=== PATIENT | female | born 1950 | race Caucasian/White ===

== ENCOUNTER 2023-06-08 16:32 | Emergency (ER) | payer MEDICARE, OTHER ==
[2023-06-08 16:56] VITALS: TEMP 99.4
[2023-06-08] MEDS: MORPHINE SULFATE 4 MG INJ IV ONE (17:21)
[2023-06-08] MEDS ORDERED: SUBLIMAZE 100 MCG/2 ML ONE (17:23)
[2023-06-08 17:24] LABS: Absolute Neutrophil Ct (ANC) 9.05 x10^3/uL (1.4-6.9); BASOPHIL % 0.6 % (0.0-0.4); Basophil (Absolute #) 0.07 x10^3/uL (0-0.4); Eosinophil % 0.3 % (0.00-5.0); Eosinophil (Absolute #) 0.03 x10^3/uL (0-0.5); Hematocrit 46.7 % (35-47); IMMATURE GRAN # 0.03 x10^3u/L (0.00-0.03); IMMATURE GRAN % 0.3 % (0.00-0.4); Lymphocyte (Absolute #) 1.35 x10^3/uL (1.0-4.6); Lymphocytes % 12.1 % (24.0-44.0); Mean Cell Volume 91.9 fL (78-100); Mean Corpuscular Hemoglobin 29.5 pg (26-32); Mean Corpuscular Hgb Concent. 32.1 g/dL (32-36); Monocyte (Absolute #) 0.67 x10^3/uL (0.0-1.3); Neutrophil % 80.7 % (36.0-66.0); Platelet Count 318 x10^3/uL (150-450); Red Blood Count 5.08 x10^6/uL (4.1-5.4); Red Cell Distribution Width 12.1 % (11.5-14.0); White Blood Count 11.2 x10^3/uL (4.0-10.5)
[2023-06-08] MEDS: SUBLIMAZE 100 MCG/2 ML IV ONE (17:24)
[2023-06-08 17:31] LABS: ALBUMIN 4.5 g/dL (3.5-5.0); ANION GAP 16.7 MEQ/L (5-15); BILIRUBIN,TOTAL 0.8 mg/dL (0.2-1.3); Calcium 9.9 mg/dL (8.4-10.2); Creatinine 1 0.91 mg/dL (0.52-1.04); EST GLOMERULAR FILTRATION RATE 66.6 ML/MIN; Potassium 4.1 mmol/L (3.5-5.1); Total Protein 7.4 g/dL (6.3-8.2)
[2023-06-08] MEDS ORDERED: Zofran 4 MG/2 ML VIAL ONE (17:56)
[2023-06-08] MEDS: Zofran 4 MG/2 ML VIAL IV ONE (17:57)
--- NOTE | 2023-06-08 18:39 | ERPHSYRPT ---
- History of Present Illness Source: patient Exam Limitations: no limitations Patient Subjective Stated Complaint: Pt has weakness and pain in her left knee and left hip, pt's legs gave out on her today and she fell and hit the back lower part of her head and has a skin tear to her left arm Triage Nursing Assessment: Pt brought to the ER by her daughter, hypertensive, rates pain when standing as 10/10 but laying in the bed it is 0/10, pulses normal, RA in her hands, weakness and pain in her left knee and hip, pt unable to stand and place any weight to the left side, pt fell and hit head today but denies any issues, denies LOC, denies N&V, no difficulty breathing, doesn't appear to be in any distress Hx Tetanus, Diphtheria Vaccination/Date Given: No (4 years ago) Hx Influenza Vaccination/Date Given: No Hx Pneumococcal Vaccination/Date Given: No <STEPHANIA DYE - Last Filed: 06/08/23 19:02> <THAI ZAMORA - Last Filed: 06/08/23 21:01> - History of Present Illness Time Seen by Provider: 06/08/23 16:40 Physician History: Patient is here with fall today. Complains of left leg pain, weakness. She states that it "gave out from underneath her". She hit her head as well. Patient having some hypertension. No chest pain,Shortness of breath, fever, chills. Patient still complains of left hip and knee pain. Not really having any head pain. But did hit the back of her head. She is not on any blood thinners. (STEPHANIA DYE) Allergies/Adverse Reactions: influenza virus vaccine qs [id number] (36 mos, up) [From Fluarix Quad] Allergy (Verified 06/08/23 16:57) Penicillins Allergy (Verified 06/08/23 16:57) Home Medications: No Reportable Medications [No Reported Medications] 06/08/23 [History] Travel Risk - International Travel Have you traveled outside of the country in past 3 weeks: No - Coronavirus Screening Are you exhibiting any of the following symptoms?: No Close contact with a COVID-19 positive Pt in past 14-21 Days: No - Vaccine Status Have you recieved a Covid-19 vaccination: No <STEPHANIA DYE - Last Filed: 06/08/23 19:02> - Past Medical History Pertinent Past Medical History: Yes Musculoskeletal History: Rheumatoid Arthritis - Past Surgical History Past Surgical History: Yes Gastrointestinal: Appendectomy Female Surgical History: Hysterectomy, Section - Social History Smoking Status: Never smoker Exposure to second hand smoke: No Drug Use: none Patient Lives Alone: Yes <STEPHANIA DYEGonzalo - Last Filed: 06/08/23 19:02> - Physical Exam SpO2 Interpretation: normal SpO2: 95 <STEPHANIA DYEGonzalo - Last Filed: 06/08/23 19:02> - Nursing Vital Signs Nursing Vital Signs: Initial Vital Signs Temperature 99.4 F 06/08/23 16:42 Pulse Rate 109 H 06/08/23 16:42 Blood Pressure 223/130 06/08/23 16:42 O2 Sat by Pulse Oximetry 95 06/08/23 16:42 Pain Scale Pain Intensity 5 - Physical Exam Comments: 06/08/23 19:02 Review of Systems Constitutional: Negative for fever. HENT: Negative for congestion. Respiratory: Negative for shortness of breath. Cardiovascular: Negative for chest pain. Gastrointestinal: Negative for abdominal pain. Genitourinary: Negative for dysuria. Musculoskeletal: Negative for back pain. Skin: Negative for rash. Neurological: Negative for headaches. Psychiatric/Behavioral: Negative for behavioral problems. All other systems reviewed and are negative. Physical Exam Vitals signs and nursing note reviewed. Constitutional: Appearance: Patient is well-developed. HENT: Head: Normocephalic and atraumatic. No obvious head trauma on exam some tenderness to palpation. Eyes: Conjunctiva/sclera: Conjunctivae normal. Neck: Musculoskeletal: Normal range of motion. Trachea: No tracheal deviation. Cardiovascular: Rate and Rhythm: Normal rate. Pulmonary: Effort: Pulmonary effort is normal. No respiratory distress. Abdominal: Palpations: Abdomen is soft. Musculoskeletal: General: Left knee tenderness, left hip tenderness to palpation. No obvious deformity. No obvious lower extremity edema. Intact pulses. Skin: General: Skin is warm and dry. Neurological/ Psychiatric: Mental Status: Mental status, behavior, interaction with environment is appropriate for patient's age and condition (STEPHANIA DYE) - Course Nursing assessment & vital signs reviewed: Yes EKG Interpreted by Me: Sinus Rhythm (Sinus rhythm, several PVCs, rate of 89, ME interval 154, QRS 105, QTc is 493) <STEPHANIA DYE - Last Filed: 06/08/23 19:02> Ordered Tests: Active Orders 24 hr Category Date Time Status EKG-ER Only STAT Care 06/08/23 16:56 Active IV Insertion STAT Care 06/08/23 16:56 Active CHEST 1 VIEW (PORTABLE) Stat Exams 06/08/23 16:57 Completed HEAD WITHOUT CONTRAST [CT] Stat Exams 06/08/23 17:46 Completed HIP UNI (2V) INCL PEL IF DONE Stat Exams 06/08/23 16:58 Completed KNEE (3 VIEWS) Stat Exams 06/08/23 16:58 Completed CBC W DIFF Stat Lab 06/08/23 16:45 Completed CK-Creatinine Phosphokinase Stat Lab 06/08/23 16:45 Completed CMP Stat Lab 06/08/23 16:45 Completed TROPONIN Q4H Lab 06/08/23 16:45 Completed TROPONIN Q4H Lab 06/08/23 21:00 Ordered TROPONIN Q4H Lab 06/09/23 01:00 Ordered UA W/RFX UR CULTURE Stat Lab 06/08/23 16:57 Ordered Medication Summary Discontinued Medications Generic Name Dose Route Start Last Admin Trade Name Freq PRN Reason Stop Dose Admin Fentanyl Citrate 50 mcg 06/08/23 17:18 06/08/23 17:24 Fentanyl Citrate 100 Mcg/2 Ml* Vial IV 06/08/23 17:19 50 mcg STAT ONE Administration Fentanyl Citrate Confirm 06/08/23 17:23 Fentanyl Citrate 100 Mcg/2 Ml* Vial Administered 06/08/23 17:24 Dose 100 mcg .ROUTE .STK-MED ONE Ketorolac Tromethamine 30 mg 06/08/23 20:11 06/08/23 20:16 Ketorolac Tromethamine 30 Mg/Ml Inj IV 06/08/23 20:12 30 mg STAT ONE Administration Ketorolac Tromethamine Confirm 06/08/23 20:14 Ketorolac Tromethamine 30 Mg/Ml Inj Administered 06/08/23 20:15 Dose 30 mg .ROUTE .STK-MED ONE Morphine Sulfate 4 mg 06/08/23 16:56 06/08/23 17:21 Morphine Sulfate 4 Mg/Ml Injection IV 06/08/23 16:57 Not Given STAT ONE Ondansetron HCl 8 mg 06/08/23 17:33 06/08/23 17:57 Ondansetron Hcl 4 Mg/2 Ml Vial IV 06/08/23 17:34 8 mg STAT ONE Administration Ondansetron HCl Confirm 06/08/23 17:56 Ondansetron Hcl 4 Mg/2 Ml Vial Administered 06/08/23 17:57 Dose 8 mg .ROUTE .K-MED ONE Lab/Rad Data: Laboratory Result Diagrams 06/08/23 16:45 06/08/23 16:45 Laboratory Results 06/08/23 06/08/23 06/08/23 Range/Units 16:45 16:45 16:45 WBC 11.2 H (4.0-10.5) x10^3/uL RBC 5.08 (4.1-5.4) x10^6/uL Hgb 15.0 (12.0-16.0) g/dL Hct 46.7 (35-47) % MCV 91.9 (78-100) fL MCH 29.5 (26-32) pg MCHC 32.1 (32-36) g/dL RDW 12.1 (11.5-14.0) % Plt Count 318 (150-450) x10^3/uL MPV 11.0 (7.5-11.0) fL Gran % 80.7 H (36.0-66.0) % Immature Gran % (Auto) 0.3 (0.00-0.4) % Nucleat RBC Rel Count 0.0 (0.00-0.1) % Eos # (Auto) 0.03 (0-0.5) x10^3/uL Immature Gran # (Auto) 0.03 (0.00-0.03) x10^3u/L Absolute Lymphs (auto) 1.35 (1.0-4.6) x10^3/uL Absolute Monos (auto) 0.67 (0.0-1.3) x10^3/uL Absolute Nucleated RBC 0.00 (0.00-0.01) x10^3u/L Lymphocytes % 12.1 L (24.0-44.0) % Monocytes % 6.0 (0.0-12.0) % Eosinophils % 0.3 (0.00-5.0) % Basophils % 0.6 (0.0-0.4) % Absolute Granulocytes 9.05 H (1.4-6.9) x10^3/uL Basophils # 0.07 (0-0.4) x10^3/uL Sodium 143 (135-145) mmol/L Potassium 4.1 (3.5-5.1) mmol/L Chloride 105 (98-107) mmol/L Carbon Dioxide 25 (22-30) mmol/L Anion Gap 16.7 H (5-15) MEQ/L BUN 27 H (7-17) mg/dL Creatinine 0.91 (0.52-1.04) mg/dL Estimated GFR 66.6 ML/MIN Glucose 149 H (74-106) mg/dL Calcium 9.9 (8.4-10.2) mg/dL Total Bilirubin 0.80 (0.2-1.3) mg/dL AST 29 (14-36) U/L ALT 18 (0-35) U/L Alkaline Phosphatase 68 (38-126) U/L Creatine Kinase 195 H (30-135) U/L Troponin I 0.026 (0.000-0.034) ng/mL Serum Total Protein 7.4 (6.3-8.2) g/dL Albumin 4.5 (3.5-5.0) g/dL - Progress Progress: improved Counseled pt/family regarding: lab results, diagnosis, need for follow-up, rad results <STEPHANIA DYE - Last Filed: 06/08/23 19:02> <THAI ZAMORA - Last Filed: 06/08/23 21:01> - Progress Progress Note: 06/08/23 19:04 Differential diagnosis includes: PNA, STEMI, NSTEMI, other infection, musculoskeletal pain, pneumothorax - We'll obtain basic labs, fluids, EKG, troponin, chest x-ray - EKG shows no ST changes - my read - O2 saturations consistently greater than 95%. - CXR shows no pneumonia, pneumothorax - my read CT of the head, X-ray of the knee, x-ray of the hip pending at this point in time. Patient's pain somewhat improved with fentanyl. Plan for continued close observation, repeat troponin. Disposition per imaging and reexam. Reexam and imaging as above. I did transfer care to Dr. Thai Zamora at 7 PM. He will follow-up on all labs and imaging, reexam. Patient may need to be admitted for hypertension if it does come back after. pain returns. We did request formal x-ray reads by Dr. David Escobar. This is given degree of trauma and arthritis surrounding patient's knee and hip x-ray. 06/08/23 19:05 (STEPHANIA DYE) 06/08/23 20:56 I took over care from Dr Dye at 1900 pt given dose of IV toradol w/ some improvement in pain Pt ambulated w/ nursing staff, had difficulties, was able to use chair for assistance and managed to get around the room pt repeatedly requesting to go home, daughter at bedside reports she will be staying w/ pt tonight to help ambulate, pt reports good family support at home I recommended pt purchase a walker before going home to assist w/ ambulation, pt believes she will be able to get around her house fine w/ walker Pt instructed to present to orthopedic walk-in clinic first thing on 06/11/23 pt given list of PCPs in area, currently does not have one instructed to use ibuprofen/tylenol otc for pain; ice/heat as needed, BUBAB wrap when ambulating (THAI ZAMORA) - Departure Critical Care Time: No <STEPHANIA DYE - Last Filed: 06/08/23 19:02> - Departure Departure Disposition: Home Critical Care Time: No <THAI ZAMORA - Last Filed: 06/08/23 21:01> - Departure Clinical Impression: Fall at home, Hypertension Condition: Stable Referrals: WALE BARFIELD [ACTIVE STAFF] - Follow up/PCP as directed Additional Instructions: recommended pt purchase a walker before going home to assist w/ ambulation, pt believes she will be able to get around her house fine w/ walker Pt instructed to present to orthopedic walk-in clinic first thing on 06/11/23 pt given list of PCPs in area, currently does not have one instructed to use ibuprofen/tylenol otc for pain; ice/heat as needed, BUBBA wrap when ambulating
--- NOTE | 2023-06-08 18:59 | XRAY ---
Indication: Status post fall. Comparison: None Portable chest demonstrates borderline cardiomegaly and large hiatal hernia with intrathoracic stomach left lung base with left lower lobe compressive atelectasis. No focal infiltrate, large effusion, or pneumothorax. Bony thorax intact with osteopenia and mild degenerative changes.
--- NOTE | 2023-06-08 18:59 | XRAY ---
Indication: Pain following fall. Comparison: None AP pelvis and 2 view left hip demonstrates osteopenia, mild degenerative changes both hips, mild degenerative changes visualized lower lumbar spine, and moderate scattered vascular calcifications. No other bony, articular, or soft tissue abnormalities.
--- NOTE | 2023-06-08 19:01 | XRAY ---
Indication: Status post fall. Multiple contiguous axial images obtained through the head without contrast. Comparison: None Age-appropriate global atrophy and mild periventricular degenerative micro-ischemia bilaterally. No acute intracranial hemorrhage, abnormal extra-axial fluid collection, or mass effect. Fourth ventricle is midline without hydrocephalus. Bony calvarium intact. Visualized paranasal sinuses and mastoid air cells are clear. Impression: Nonacute senile brain.
--- NOTE | 2023-06-08 19:01 | XRAY ---
Indication: Pain following fall. Comparison: None 3 view left knee demonstrates osteopenia, advanced tricompartmental degenerative changes, and small nonspecific effusion. No other bony, articular, or soft tissue abnormalities.
[2023-06-08] MEDS ORDERED: TORAdol 30 mg Injection ONE (20:14)
[2023-06-08] MEDS: TORAdol 30 mg Injection IV ONE (20:16)
[2023-06-08 20:27] VITALS: BP 189/107; PULSE 88; RESP 15; O2SAT 94
== END 2023-06-08 21:35 | disposition home or self-care (01) ==
LOC: ED 16:32
DX: M25.562 Pain in left knee (principal); M25.552 Pain in left hip; W19.XXXA Unspecified fall, initial encounter; S41.112A Laceration without foreign body of left upper arm, initial encounter; I10 Essential (primary) hypertension
CPT/HCPCS: 36000; 36415; 70450; 71045; 73502; 73562; 80053; 82550; 84484; 85025; 93005; 96374; 96375; 99284; J1885; J2405; J3010

== ENCOUNTER 2023-12-27 01:12 | Observation (INO) | payer MEDICARE ==
--- NOTE | 2023-12-27 01:26 | ERPHSYRPT ---
- History of Present Illness Time Seen by Provider: 12/27/23 01:24 Source: patient Exam Limitations: no limitations Physician History: 73-year-old female presents to emergency department for evaluation of chest pain. Patient states chest pain started at approximately 8:00. Patient was sitting down when the pain started. Pain was substernal and radiated to left arm. Patient was nauseous. No vomiting. Patient has a history of a debilitating stroke that occurred on June 08, 2023. Patient also has a history of A-fib. Patient states she is currently anticoagulated. Chest pain was rated 9 out of 10 at its worst. Patient took Tylenol. Chest pain improved to 4 out of 10. Patient states chest pain is minimal at this time. Nausea resolved. Patient otherwise feels well. She voices no other complaints or concerns at this time. Portions of this note were created with voice recognition technology. There may be grammatical, spelling, punctuation or sound alike errors Timing/Duration: today Severity: moderate Modifying Factors: Improves With: nothing Associated Symptoms: nausea Allergies/Adverse Reactions: influenza virus vaccine qs [id number] (36 mos, up) [From Fluarix Quad] Allergy (Verified 12/27/23 01:37) Penicillins Allergy (Verified 12/27/23 01:37) Home Medications: Amlodipine Besylate 5 mg [Norvasc 5 mg] 1 tab PO DAILY 12/27/23 [History] Aspirin [Aspirin EC] 81 mg PO DAILY 12/27/23 [History] Atorvastatin Calcium 40 mg PO DAILY 12/27/23 [History] Buspirone HCl 5 mg [Buspar 5 mg] 1 tab PO TID 12/27/23 [History] Clopidogrel Bisulfate [Plavix] 1 tab PO DAILY 12/27/23 [History] Docusate Sodium 100 mg [Docusate Sodium 100 MG] 1 tab PO DAILY 12/27/23 [History] Gabapentin 300 mg PO DAILY 12/27/23 [History] Lisinopril 20 mg [Zestril 20 MG] 1 tab PO DAILY 12/27/23 [History] Metoprolol Succinate 25 mg PO DAILY 12/27/23 [History] Ondansetron ODT 4 MG [Zofran Odt 4 mg] 1 tab PO TID PRN PRN 12/27/23 [History] PANTOPRAZOLE 40 mg Tablet [Protonix 40MG Tablet] 1 tab PO DAILY 12/27/23 [History] hydroCHLOROthiazide [Hydrochlorothiazide] 12.5 mg PO DAILY 12/27/23 [History] Hx Tetanus, Diphtheria Vaccination/Date Given: No (4 years ago) Hx Influenza Vaccination/Date Given: No Hx Pneumococcal Vaccination/Date Given: No - Review of Systems Constitutional: No Symptoms, No Fever, No Chills Eyes: No Symptoms Ears, Nose, & Throat: No Symptoms Respiratory: No Symptoms, No Cough, No Dyspnea Cardiac: No Symptoms, No Chest Pain, No Edema, No Syncope Abdominal/Gastrointestinal: No Symptoms, No Abdominal Pain, No Nausea, No Vomiting, No Diarrhea Genitourinary Symptoms: No Symptoms, No Dysuria Musculoskeletal: No Symptoms, No Back Pain, No Neck Pain Skin: No Symptoms, No Rash Neurological: No Symptoms, No Dizziness, No Focal Weakness, No Sensory Changes Psychological: No Symptoms Endocrine: No Symptoms Hematologic/Lymphatic: No Symptoms Immunological/Allergic: No Symptoms All Other Systems: Reviewed and Negative - Past Medical History Pertinent Past Medical History: Yes Musculoskeletal History: Rheumatoid Arthritis - Past Surgical History Past Surgical History: Yes Gastrointestinal: Appendectomy Female Surgical History: Hysterectomy, Section - Social History Smoking Status: Never smoker Exposure to second hand smoke: No Drug Use: none Patient Lives Alone: Yes - Nursing Vital Signs Nursing Vital Signs: Initial Vital Signs Temperature 98.2 F 12/27/23 01:15 Respiratory Rate 18 12/27/23 01:15 Blood Pressure 111/61 12/27/23 01:15 O2 Sat by Pulse Oximetry 94 L 12/27/23 01:15 Pain Scale Pain Intensity 3 - Physical Exam General Appearance: no apparent distress, alert Eye Exam: PERRL/EOMI, eyes nml inspection Ears, Nose, Throat Exam: normal ENT inspection, pharynx normal, moist mucous membranes Neck Exam: normal inspection, non-tender, supple, full range of motion Respiratory Exam: normal breath sounds, lungs clear, airway intact, No respiratory distress Cardiovascular Exam: regular rate/rhythm, normal heart sounds, normal peripheral pulses Gastrointestinal/Abdomen Exam: soft, normal bowel sounds, No tenderness, No mass Back Exam: normal inspection, normal range of motion, No CVA tenderness, No vertebral tenderness Extremity Exam: normal inspection, normal range of motion, pelvis stable, other (Left upper extremity posturing and contractured secondary to stroke in May or 2023.) Neurologic Exam: alert, oriented x 3, cooperative, normal mood/affect, sensation nml, other (Patient's neurologic exam at her baseline), No motor deficits Skin Exam: normal color, warm, dry, No rash Lymphatic Exam: No adenopathy SpO2 Interpretation: normal SpO2: 94 O2 Delivery: Room Air - Course Nursing assessment & vital signs reviewed: Yes EKG Interpreted by Me: RATE (83), Sinus Rhythm, NORMAL AXIS, NORMAL INTERVALS, NORMAL QRS - Radiology Exams Chest X-ray Interpretation: Interpreted by me (No acute findings.) Ordered Tests: Active Orders 24 hr Category Date Time Status Pocket Maker STAT Care 12/27/23 01:26 Active EKG-ER Only STAT Care 12/27/23 01:26 Active IV Insertion STAT Care 12/27/23 01:26 Active Pulse Oximetry (ED) STAT Care 12/27/23 01:26 Active CHEST 1 VIEW (PORTABLE) Stat Exams 12/27/23 01:26 Taken CBC W DIFF Stat Lab 12/27/23 01:36 Completed CMP Stat Lab 12/27/23 01:36 Completed NT PRO BNPII Stat Lab 12/27/23 01:36 Received PROTIME WITH INR Stat Lab 12/27/23 01:36 Received PTT Stat Lab 12/27/23 01:36 Received TROPONIN Q4H Lab 12/27/23 05:30 Ordered TROPONIN Q4H Lab 12/27/23 09:30 Ordered UA W/RFX UR CULTURE Stat Lab 12/27/23 02:26 Ordered Lab/Rad Data: Laboratory Result Diagrams 12/27/23 01:36 12/27/23 01:36 Laboratory Results 12/27/23 12/27/23 12/27/23 Range/Units 01:36 01:36 01:36 WBC 7.7 (3.98-10.04) x10^3/uL RBC 3.89 L (3.93-5.22) x10^6/uL Hgb 12.0 (11.2-15.7) g/dL Hct 36.7 (34.1-44.9) % MCV 94.3 (79.4-94.8) fL MCH 30.8 (25.6-32.2) pg MCHC 32.7 (32.2-35.5) g/dL RDW 11.9 (11.7-14.4) % Plt Count 292 (182-369) x10^3/uL MPV 10.7 (9.4-12.3) fL Gran % 65.8 (34.0-71.1) % Immature Gran % (Auto) 0.3 (0.001-0.429) % Nucleat RBC Rel Count 0.0 (0.00-0.2) % Eos # (Auto) 0.13 (0.04-0.36) x10^3/uL Immature Gran # (Auto) 0.02 (0.001-0.031) x10^3u/L Absolute Lymphs (auto) 1.75 (1.18-3.74) x10^3/uL Absolute Monos (auto) 0.66 (0.24-0.86) x10^3/uL Absolute Nucleated RBC 0.00 (0.00-0.012) x10^3u/L Lymphocytes % 22.8 (19.3-51.7) % Monocytes % 8.6 (4.7-12.5) % Eosinophils % 1.7 (0.7-5.8) % Basophils % 0.8 (0.1-1.2) % Absolute Granulocytes 5.05 (1.56-6.13) x10^3/uL Basophils # 0.06 (0.01-0.08) x10^3/uL Sodium 141 (135-145) mmol/L Potassium 3.8 (3.5-5.1) mmol/L Chloride 105 (98-107) mmol/L Carbon Dioxide 26 (22-30) mmol/L Anion Gap 13.6 (5-15) MEQ/L BUN 40 H (7-17) mg/dL Creatinine 0.78 (0.52-1.04) mg/dL Estimated GFR 79.7 ML/MIN Glucose 116 H (74-106) mg/dL Calcium 9.7 (8.4-10.2) mg/dL Total Bilirubin 0.90 (0.2-1.3) mg/dL AST 31 (14-36) U/L ALT 22 (0-35) U/L Alkaline Phosphatase 55 (38-126) U/L Troponin 0.01 (0.00-0.03) ng/mL Serum Total Protein 7.0 (6.3-8.2) g/dL Albumin 4.1 (3.5-5.0) g/dL - Progress Progress: improved Progress Note: 73-year-old female history of stroke in June 2023 presents to emergency department for evaluation of chest pain. Patient states her chest pain started at approximately 8 PM. Patient was at home sitting when the chest pain started. Chest pain was associated with nausea. Chest pain radiated to her left arm. Pain was rated 9 out of 10. Patient self administered aspirin and pain improved. However pain did not resolve patient presented to our ED via EMS for further evaluation and treatment. Physical exam reveals a contracture left upper extremity from stroke in June 2023. Neurologic exam otherwise normal. Lungs clear. EKG revealed a sinus rhythm. Patient has a history of A-fib. She is on aspirin and Plavix. Initial troponin negative. Chest x-ray negative for pneumonia. No pulmonary congestion. No acute findings observed. In light of patient's cardiovascular risk factors and her symptoms of chest pain radiating to left arm patient will be admitted for further evaluation and treatment. No indication for administration of Plavix or aspirin at this time. Nitropaste applied. Vital stable. Plan of care discussed with hospitalist who accepts admission at 2:30 AM. Plan of care discussed with patient. She agrees to admission to [facility] for further evaluation and treatment. Portions of this note were created with voice recognition technology. There may be grammatical, spelling, punctuation or sound alike errors Complexity of problem addressed is moderate acute complicated. No critical care time. Complexity of data reviewed and analyzed is extensive. Test ordered chest reviewed results analyzed and correlated clinically with history and physical exam. Management discussed with hospitalist will except admission to observation at 2:30 AM. Risk of complication and or risk of morbidity/mortality of patient management is high. Patient requires hospitalization for further evaluation and treatment. Vital stable. Time spent admit patient approximately 15 minutes. Plan of care established for shared decision making. No social determinants of health present to impede follow-up. Portions of this note were created with voice recognition technology. There may be grammatical, spelling, punctuation or sound alike errors 12/27/23 02:[address] Glez (Patient accepted by Dr. perez at 2:30 AM.) Counseled pt/family regarding: lab results, diagnosis, rad results - Departure Departure Disposition: Observation Clinical Impression: Chest pain, ACS (acute coronary syndrome) Condition: Stable Critical Care Time: No Referrals: EDILBERTO PULLIAM MD [Primary Care Provider] - Follow up/PCP as directed
[2023-12-27 01:40] LABS: Absolute Neutrophil Ct (ANC) 5.05 x10^3/uL (1.56-6.13); BASOPHIL % 0.8 % (0.1-1.2); Basophil (Absolute #) 0.06 x10^3/uL (0.01-0.08); Eosinophil % 1.7 % (0.7-5.8); Eosinophil (Absolute #) 0.13 x10^3/uL (0.04-0.36); Hematocrit 36.7 % (34.1-44.9); IMMATURE GRAN # 0.02 x10^3u/L (0.001-0.031); IMMATURE GRAN % 0.3 % (0.001-0.429); Lymphocyte (Absolute #) 1.75 x10^3/uL (1.18-3.74); Lymphocytes % 22.8 % (19.3-51.7); Mean Cell Volume 94.3 fL (79.4-94.8); Mean Corpuscular Hemoglobin 30.8 pg (25.6-32.2); Mean Corpuscular Hgb Concent. 32.7 g/dL (32.2-35.5); Mean Platelet Volume 10.7 fL (9.4-12.3); Monocyte (Absolute #) 0.66 x10^3/uL (0.24-0.86); Monocytes % 8.6 % (4.7-12.5); Neutrophil % 65.8 % (34.0-71.1); Platelet Count 292 x10^3/uL (182-369); Red Blood Count 3.89 x10^6/uL (3.93-5.22); Red Cell Distribution Width 11.9 % (11.7-14.4); White Blood Count 7.7 x10^3/uL (3.98-10.04)
[2023-12-27 02:14] LABS: ALBUMIN 4.1 g/dL (3.5-5.0); ANION GAP 13.6 MEQ/L (5-15); BILIRUBIN,TOTAL 0.9 mg/dL (0.2-1.3); Calcium 9.7 mg/dL (8.4-10.2); Creatinine 1 0.78 mg/dL (0.52-1.04); EST GLOMERULAR FILTRATION RATE 79.7 ML/MIN; Potassium 3.8 mmol/L (3.5-5.1)
[2023-12-27 02:37] LABS: Appearance Clear (Clear); Bacteria None Seen /HPF (None Seen); Bilirubin Negative (Negative); Blood Negative (Negative); Epithelial Cells None Seen /HPF (None Seen); Glucose, Urine Negative (Negative); Ketones Negative (Negative); Leukocyte Esterase Negative (Negative); Nitrite Negative (Negative); Protein,Urine Dip Negative (Negative); RBC 0-2 /HPF (0-5); Specific Gravity 1.025 (1.005-1.030); Urobilinogen 0.2 mg/dL (0.2); WBC 0-2 /HPF (0-5)
[2023-12-27] MEDS ORDERED: NITRO-BID 2% UD PACKETS ONE (02:41)
[2023-12-27] MEDS: NITRO-BID 2% UD PACKETS TOP ONE (02:42)
[2023-12-27] MEDS ORDERED: ZOFRAN ODT 4 MG PO PRN (04:07)
[2023-12-27] MEDS ORDERED: MORPHINE SULFATE 2 MG INJ IV PRN (04:14)
--- NOTE | 2023-12-27 04:22 | PCM.HP ---
History of Present Illness - Chief Complaint Chief Complaint: ACS Date: 12/27/23 History of Present Illness: is a 73 year old female with a history of old CVA (on Plavix and ASA 81 mg) and atrial fibrillation but with no history of CAD, who presented to the emergency department for evaluation of chest pain. Patient states chest pain started at approximately 8:00. Patient was sitting down when the pain started. Pain was substernal and radiated to left arm. Patient was nauseous. No vomiting. Patient has a history of a debilitating stroke that occurred on June 08, 2023, with residual arm weakness/contracture. Chest pain was rated 9 out of 10 at its worst. Patient took Tylenol. Chest pain improved to 4 out of 10. Patient states chest pain is minimal at this time. Nausea resolved. The patient stated that her chest pain radiates to her left shoulder. - Review of Systems Constitutional: No Symptoms Eyes: No Symptoms Ears, Nose, & Throat: No Symptoms Respiratory: No Symptoms Cardiac: Chest Pain Abdominal/Gastrointestinal: No Symptoms Genitourinary Symptoms: No Symptoms Musculoskeletal: No Symptoms Skin: No Symptoms Neurological: No Symptoms Psychological: No Symptoms Endocrine: No Symptoms Hematologic/Lymphatic: No Symptoms Immunological/Allergic: No Symptoms All Other Systems: Reviewed and Negative Medications & Allergies Home Medications: Home Medication List Amlodipine Besylate 5 mg [Norvasc 5 mg] 1 tab PO DAILY 12/27/23 [History Confirmed 12/27/23] Aspirin [Aspirin EC] 81 mg PO DAILY 12/27/23 [History Confirmed 12/27/23] Atorvastatin Calcium 40 mg PO DAILY 12/27/23 [History Confirmed 12/27/23] Buspirone HCl 5 mg [Buspar 5 mg] 1 tab PO TID 12/27/23 [History Confirmed 12/27/23] Clopidogrel Bisulfate [Plavix] 1 tab PO DAILY 12/27/23 [History Confirmed 12/27/23] Docusate Sodium 100 mg [Docusate Sodium 100 MG] 1 tab PO DAILY 12/27/23 [History Confirmed 12/27/23] Gabapentin 300 mg PO DAILY 12/27/23 [History Confirmed 12/27/23] Lisinopril 20 mg [Zestril 20 MG] 1 tab PO DAILY 12/27/23 [History Confirmed 12/27/23] Metoprolol Succinate 25 mg PO DAILY 12/27/23 [History Confirmed 12/27/23] Ondansetron ODT 4 MG [Zofran Odt 4 mg] 1 tab PO TID PRN PRN 12/27/23 [History Confirmed 12/27/23] hydroCHLOROthiazide [Hydrochlorothiazide] 12.5 mg PO DAILY 12/27/23 [History Confirmed 12/27/23] Allergies/Adverse Reactions: Allergies Allergy/AdvReac Type Severity Reaction Status Date / Time influenza virus vaccine qs Allergy Verified 12/27/23 01:37 [id number] (36 mos, up) [From Fluarix Quad] Penicillins Allergy Verified 12/27/23 01:37 - Past Medical History Past Medical History: Yes Neurological History: Stroke ENT History: No Pertinent History Cardiac History: Arrhythmia, Hypertension Respiratory History: No Pertinent History Endocrine Medical History: No Pertinent History Musculoskelatal History: Rheumatoid Arthritis GI Medical History: No Pertinent History History: No Pertinent History Pyscho-Social History: No Pertinent History Reproductive Disorders: Other Comment: urinary incontinence due to not being able to get there quick enough due to stroke, a-fib - Past Surgical History Past Surgical History: Yes Neuro Surgical History: No Pertinent History Cardiac History: No Pertinent History Respiratory Surgery: No Pertinent History GI Surgical History: Appendectomy Genitourinary Surgical Hx: No Pertinent History Musculskeletal Surgical Hx: No Pertinent History Female Surgical History: Hysterectomy, Section - Social History Smoking Status: Never smoker Exposure to second hand smoke: No Alcohol: None Drug Use: none - Social Determinants of Health Will the patient participate in the screening: Yes Do you worry about a steady place to live?: No Do you have any problems with any of the following?: No known problems In the past 12 months,have you had to go without utilities?: No Have you or anyone in your house had to go without enough: No Transportation Issues: No Has anyone in your support network made you feel unsafe?: No - Physical Exam Vital Signs: Vital Signs - 24 hr Temp Pulse Pulse Resp BP BP Pulse Ox 12/27/23 04:11 84 16 90 L 12/27/23 04:08 90 L 12/27/23 03:00 84 26 H 111/66 95 12/27/23 02:37 94 L 12/27/23 02:30 87 14 113/58 95 12/27/23 02:00 84 13 118/61 94 L 12/27/23 01:26 94 L 12/27/23 01:17 82 12/27/23 01:15 98.2 F 18 111/61 94 L General Appearance: no apparent distress, alert Neurologic Exam: alert, oriented x 3, cooperative, nib assembler II-XII nml as tested, normal mood/affect, nml cerebellar function, motor weakness Eye Exam: PERRL/EOMI Ears, Nose, Throat Exam: normal ENT inspection Neck Exam: normal inspection, non-tender, supple, full range of motion Respiratory Exam: normal breath sounds, lungs clear Cardiovascular Exam: regular rate/rhythm, normal heart sounds Gastrointestinal/Abdomen Exam: soft, normal bowel sounds Back Exam: normal range of motion Extremity Exam: normal inspection, normal range of motion Skin Exam: normal color Results - Labs Lab/Micro Results: Lab Results-Last 24 Hours 12/27/23 12/27/23 12/27/23 Range/Units 01:36 01:36 01:36 WBC 7.7 (3.98-10.04) x10^3/uL RBC 3.89 L (3.93-5.22) x10^6/uL Hgb 12.0 (11.2-15.7) g/dL Hct 36.7 (34.1-44.9) % MCV 94.3 (79.4-94.8) fL MCH 30.8 (25.6-32.2) pg MCHC 32.7 (32.2-35.5) g/dL RDW 11.9 (11.7-14.4) % Plt Count 292 (182-369) x10^3/uL MPV 10.7 (9.4-12.3) fL Gran % 65.8 (34.0-71.1) % Immature Gran % (Auto) 0.3 (0.001-0.429) % Nucleat RBC Rel Count 0.0 (0.00-0.2) % Eos # (Auto) 0.13 (0.04-0.36) x10^3/uL Immature Gran # (Auto) 0.02 (0.001-0.031) x10^3u/L Absolute Lymphs (auto) 1.75 (1.18-3.74) x10^3/uL Absolute Monos (auto) 0.66 (0.24-0.86) x10^3/uL Absolute Nucleated RBC 0.00 (0.00-0.012) x10^3u/L Lymphocytes % 22.8 (19.3-51.7) % Monocytes % 8.6 (4.7-12.5) % Eosinophils % 1.7 (0.7-5.8) % Basophils % 0.8 (0.1-1.2) % Absolute Granulocytes 5.05 (1.56-6.13) x10^3/uL Basophils # 0.06 (0.01-0.08) x10^3/uL Sodium 141 (135-145) mmol/L Potassium 3.8 (3.5-5.1) mmol/L Chloride 105 (98-107) mmol/L Carbon Dioxide 26 (22-30) mmol/L Anion Gap 13.6 (5-15) MEQ/L BUN 40 H (7-17) mg/dL Creatinine 0.78 (0.52-1.04) mg/dL Estimated GFR 79.7 ML/MIN Glucose 116 H (74-106) mg/dL Calcium 9.7 (8.4-10.2) mg/dL Total Bilirubin 0.90 (0.2-1.3) mg/dL AST 31 (14-36) U/L ALT 22 (0-35) U/L Alkaline Phosphatase 55 (38-126) U/L Troponin 0.01 (0.00-0.03) ng/mL Serum Total Protein 7.0 (6.3-8.2) g/dL Albumin 4.1 (3.5-5.0) g/dL Urine Color (Yellow) Urine Appearance (Clear) Urine pH (4.6-8.0) Ur Specific [place] (1.005-1.030) Urine Protein (Negative) Urine Glucose (UA) (Negative) mg/dL Urine Ketones (Negative) Urine Blood (Negative) Urine Nitrite (Negative) Urine Bilirubin (Negative) Urine Urobilinogen (0.2) mg/dL Ur Leukocyte Esterase (Negative) U Hyaline Cast (Auto) (0-2) /LPF Urine Microscopic RBC (0-5) /HPF Urine Microscopic WBC (0-5) /HPF Ur Epithelial Cells (None Seen) /HPF Urine Bacteria (None Seen) /HPF Urine Culture Reflexed (NO) 12/27/23 Range/Units 02:26 WBC (3.98-10.04) x10^3/uL RBC (3.93-5.22) x10^6/uL Hgb (11.2-15.7) g/dL Hct (34.1-44.9) % MCV (79.4-94.8) fL MCH (25.6-32.2) pg MCHC (32.2-35.5) g/dL RDW (11.7-14.4) % Plt Count (182-369) x10^3/uL MPV (9.4-12.3) fL Gran % (34.0-71.1) % Immature Gran % (Auto) (0.001-0.429) % Nucleat RBC Rel Count (0.00-0.2) % Eos # (Auto) (0.04-0.36) x10^3/uL Immature Gran # (Auto) (0.001-0.031) x10^3u/L Absolute Lymphs (auto) (1.18-3.74) x10^3/uL Absolute Monos (auto) (0.24-0.86) x10^3/uL Absolute Nucleated RBC (0.00-0.012) x10^3u/L Lymphocytes % (19.3-51.7) % Monocytes % (4.7-12.5) % Eosinophils % (0.7-5.8) % Basophils % (0.1-1.2) % Absolute Granulocytes (1.56-6.13) x10^3/uL Basophils # (0.01-0.08) x10^3/uL Sodium (135-145) mmol/L Potassium (3.5-5.1) mmol/L Chloride (98-107) mmol/L Carbon Dioxide (22-30) mmol/L Anion Gap (5-15) MEQ/L BUN (7-17) mg/dL Creatinine (0.52-1.04) mg/dL Estimated GFR ML/MIN Glucose (74-106) mg/dL Calcium (8.4-10.2) mg/dL Total Bilirubin (0.2-1.3) mg/dL AST (14-36) U/L ALT (0-35) U/L Alkaline Phosphatase (38-126) U/L Troponin (0.00-0.03) ng/mL Serum Total Protein (6.3-8.2) g/dL Albumin (3.5-5.0) g/dL Urine Color Yellow (Yellow) Urine Appearance Clear (Clear) Urine pH 5.0 (4.6-8.0) Ur Specific [place] 1.025 (1.005-1.030) Urine Protein Negative (Negative) Urine Glucose (UA) Negative (Negative) mg/dL Urine Ketones Negative (Negative) Urine Blood Negative (Negative) Urine Nitrite Negative (Negative) Urine Bilirubin Negative (Negative) Urine Urobilinogen 0.2 (0.2) mg/dL Ur Leukocyte Esterase Negative (Negative) U Hyaline Cast (Auto) 3-5 A (0-2) /LPF Urine Microscopic RBC 0-2 (0-5) /HPF Urine Microscopic WBC 0-2 (0-5) /HPF Ur Epithelial Cells None Seen (None Seen) /HPF Urine Bacteria None Seen (None Seen) /HPF Urine Culture Reflexed NO (NO) - Radiology Impressions Radiology Exams & Impressions: Radiology Procedures Category Date Time Status CHEST 1 VIEW (PORTABLE) Stat Exams 12/27/23 01:26 Taken Assessment/Plan (1) Chest pain Current Visit: Yes Status: Acute Assessment & Plan: Serial troponins on telemetry. Denies history of CAD but patient at risk for vascular disease, given her history of CVA. Analgesia. Placed on PPI. Code(s): R07.9 - CHEST PAIN, UNSPECIFIED (2) Cerebrovascular disease Current Visit: Yes Status: Acute Assessment & Plan: On Plavix + ASA 81. Code(s): I67.9 - CEREBROVASCULAR DISEASE, UNSPECIFIED (3) Hypertension Current Visit: No Status: Acute Assessment & Plan: Monitor BP on current regimen. Code(s): I10 - ESSENTIAL (PRIMARY) HYPERTENSION Telemedicine Encounter - Telemedicine Encounter Telemedicine Encounter: "The entirety of this encounter was performed via Telemedicine" This visit was performed using real-time audio and video connection between my location and thepatients locationwith the assistance of a surrogateat the patients location. Written or verbal consent was obtained from the patient/guardian to perform this visit usingsynchrZapHourtelemedicine technology. Any patient questions regarding the telemedicine interaction were answered.
[2023-12-27] MEDS: NORCO 5/325 MG PO PRN (04:35)
--- NOTE | 2023-12-27 09:28 | XRAY ---
Indication: Pain. Comparison: June 08, 2023 Portable chest inflated and remains clear. Heart within normal limits for AP portable technique with stable left hilar calcified nodes. Again large hiatal hernia with partial intrathoracic stomach left lung base. Bony thorax intact again with osteopenia and mild degenerative changes. Impression: Continued nonacute chest with chronic features.
[2023-12-27] MEDS: hydroDIURIL 25 MG PO SCH (09:41)
[2023-12-27] MEDS: Protonix 40MG Tablet PO SCH (09:41)
[2023-12-27] MEDS: ECOTRIN 81 MG PO SCH (09:41)
[2023-12-27] MEDS: Zestril 20 MG PO SCH (09:41)
[2023-12-27] MEDS: TYLENOL 325 MG PO PRN (09:41)
[2023-12-27] MEDS: BUSPAR 5 MG PO SCH (09:41)
[2023-12-27] MEDS: NORVASC 5 MG PO SCH (09:42)
[2023-12-27] MEDS: Docusate Sodium 100 MG PO SCH (09:42)
[2023-12-27] MEDS: Toprol-Xl 25MG Tablets PO SCH (09:42)
[2023-12-27] MEDS: PLAVIX Tablet PO SCH (09:42)
[2023-12-27] MEDS: ZOCOR 20MG PO SCH (09:42)
[2023-12-27] MEDS: NEURONTIN PO SCH (09:42)
--- NOTE | 2023-12-27 11:18 | PCM.DS ---
Discharge Summary Date of Admission: 12/27/23 03:10 Date of Discharge: 12/27/23 Admitting Physician: ANURADHA LOWE MD Primary Care Provider: EDILBERTO PULLIAM Allergies Allergies influenza virus vaccine qs [id number] (36 mos, up) [From Fluarix Quad] Allergy (Verified 12/27/23 01:37) Penicillins Allergy (Verified 12/27/23 01:37) Hospital Summary - Hospital Course Hospital Course: is a 73 year old female with a history of old CVA (on Plavix and ASA 81 mg) and atrial fibrillation but with no history of CAD. She presented to the emergency department on 12/26/23 for evaluation of chest pain. Patient states chest pain started at approximately 8:00am that day. Patient was sitting down when the pain started. Pain was substernal and radiated to left arm. Patient was nauseous. No vomiting. Patient has a history of a debilitating stroke that occurred on June 08, 2023, with residual arm weakness/contracture. Chest pain was rated 9 out of 10 at its worst. Patient took Tylenol. Chest pain improved to 4 out of 10. Patient states chest pain is minimal at this time. Nausea resolved. The patient stated that her chest pain radiates to her left shoulder. Trop x3 negative. She thinks this pain is coming from her left shoulder which she has had problems with since the stroke. She has never had an XR. Left shoulder XR pending. Will have her f/u with ortho OP. She is going to d/c with [facility]. She refuses rehab. She continues to have weakness associated with CVA. She denies any further concerns at this time. - Vitals & Intake/Output Vital Signs: Vital Signs Temperature 96.6 F 12/27/23 07:34 Pulse Rate 78 12/27/23 07:34 Respiratory Rate 15 12/27/23 07:34 Blood Pressure 120/60 12/27/23 07:34 O2 Sat by Pulse Oximetry 93 L 12/27/23 07:34 Intake & Output: Intake & Output 12/24/23 12/25/23 12/26/23 12/27/23 11:59 11:59 11:59 11:59 Intake Total 220 Balance 220 Weight 79.4 kg - Lab Result Diagrams: 12/27/23 01:36 12/27/23 01:36 Lab Results-Last 24 Hrs: Lab Results-Last 24 Hours 12/27/23 12/27/23 12/27/23 Range/Units 01:36 01:36 01:36 WBC 7.7 (3.98-10.04) x10^3/uL RBC 3.89 L (3.93-5.22) x10^6/uL Hgb 12.0 (11.2-15.7) g/dL Hct 36.7 (34.1-44.9) % MCV 94.3 (79.4-94.8) fL MCH 30.8 (25.6-32.2) pg MCHC 32.7 (32.2-35.5) g/dL RDW 11.9 (11.7-14.4) % Plt Count 292 (182-369) x10^3/uL MPV 10.7 (9.4-12.3) fL Gran % 65.8 (34.0-71.1) % Immature Gran % (Auto) 0.3 (0.001-0.429) % Nucleat RBC Rel Count 0.0 (0.00-0.2) % Eos # (Auto) 0.13 (0.04-0.36) x10^3/uL Immature Gran # (Auto) 0.02 (0.001-0.031) x10^3u/L Absolute Lymphs (auto) 1.75 (1.18-3.74) x10^3/uL Absolute Monos (auto) 0.66 (0.24-0.86) x10^3/uL Absolute Nucleated RBC 0.00 (0.00-0.012) x10^3u/L Lymphocytes % 22.8 (19.3-51.7) % Monocytes % 8.6 (4.7-12.5) % Eosinophils % 1.7 (0.7-5.8) % Basophils % 0.8 (0.1-1.2) % Absolute Granulocytes 5.05 (1.56-6.13) x10^3/uL Basophils # 0.06 (0.01-0.08) x10^3/uL PT (9.4-12.5) SECONDS INR (0.8-3.0) APTT (25.1-36.5) SECONDS Sodium 141 (135-145) mmol/L Potassium 3.8 (3.5-5.1) mmol/L Chloride 105 (98-107) mmol/L Carbon Dioxide 26 (22-30) mmol/L Anion Gap 13.6 (5-15) MEQ/L BUN 40 H (7-17) mg/dL Creatinine 0.78 (0.52-1.04) mg/dL Estimated GFR 79.7 ML/MIN Glucose 116 H (74-106) mg/dL Calcium 9.7 (8.4-10.2) mg/dL Total Bilirubin 0.90 (0.2-1.3) mg/dL AST 31 (14-36) U/L ALT 22 (0-35) U/L Alkaline Phosphatase 55 (38-126) U/L Troponin (0.00-0.03) ng/mL NT-Pro-B Natriuret Pep (<300) pg/mL Serum Total Protein 7.0 (6.3-8.2) g/dL Albumin 4.1 (3.5-5.0) g/dL Prealbumin (17.6-36.0) mg/dL Urine Color (Yellow) Urine Appearance (Clear) Urine pH (4.6-8.0) Ur Specific [place] (1.005-1.030) Urine Protein (Negative) Urine Glucose (UA) (Negative) mg/dL Urine Ketones (Negative) Urine Blood (Negative) Urine Nitrite (Negative) Urine Bilirubin (Negative) Urine Urobilinogen (0.2) mg/dL Ur Leukocyte Esterase (Negative) U Hyaline Cast (Auto) (0-2) /LPF Urine Microscopic RBC (0-5) /HPF Urine Microscopic WBC (0-5) /HPF Ur Epithelial Cells (None Seen) /HPF Urine Bacteria (None Seen) /HPF Urine Culture Reflexed (NO) 12/27/23 12/27/23 12/27/23 Range/Units 01:36 01:36 02:26 WBC (3.98-10.04) x10^3/uL RBC (3.93-5.22) x10^6/uL Hgb (11.2-15.7) g/dL Hct (34.1-44.9) % MCV (79.4-94.8) fL MCH (25.6-32.2) pg MCHC (32.2-35.5) g/dL RDW (11.7-14.4) % Plt Count (182-369) x10^3/uL MPV (9.4-12.3) fL Gran % (34.0-71.1) % Immature Gran % (Auto) (0.001-0.429) % Nucleat RBC Rel Count (0.00-0.2) % Eos # (Auto) (0.04-0.36) x10^3/uL Immature Gran # (Auto) (0.001-0.031) x10^3u/L Absolute Lymphs (auto) (1.18-3.74) x10^3/uL Absolute Monos (auto) (0.24-0.86) x10^3/uL Absolute Nucleated RBC (0.00-0.012) x10^3u/L Lymphocytes % (19.3-51.7) % Monocytes % (4.7-12.5) % Eosinophils % (0.7-5.8) % Basophils % (0.1-1.2) % Absolute Granulocytes (1.56-6.13) x10^3/uL Basophils # (0.01-0.08) x10^3/uL PT (9.4-12.5) SECONDS INR (0.8-3.0) APTT (25.1-36.5) SECONDS Sodium (135-145) mmol/L Potassium (3.5-5.1) mmol/L Chloride (98-107) mmol/L Carbon Dioxide (22-30) mmol/L Anion Gap (5-15) MEQ/L BUN (7-17) mg/dL Creatinine (0.52-1.04) mg/dL Estimated GFR ML/MIN Glucose (74-106) mg/dL Calcium (8.4-10.2) mg/dL Total Bilirubin (0.2-1.3) mg/dL AST (14-36) U/L ALT (0-35) U/L Alkaline Phosphatase (38-126) U/L Troponin 0.01 (0.00-0.03) ng/mL NT-Pro-B Natriuret Pep (<300) pg/mL Serum Total Protein (6.3-8.2) g/dL Albumin (3.5-5.0) g/dL Prealbumin (17.6-36.0) mg/dL Urine Color Yellow (Yellow) Urine Appearance Clear (Clear) Urine pH 5.0 (4.6-8.0) Ur Specific [place] 1.025 (1.005-1.030) Urine Protein Negative (Negative) Urine Glucose (UA) Negative (Negative) mg/dL Urine Ketones Negative (Negative) Urine Blood Negative (Negative) Urine Nitrite Negative (Negative) Urine Bilirubin Negative (Negative) Urine Urobilinogen 0.2 (0.2) mg/dL Ur Leukocyte Esterase Negative (Negative) U Hyaline Cast (Auto) 3-5 A (0-2) /LPF Urine Microscopic RBC 0-2 (0-5) /HPF Urine Microscopic WBC 0-2 (0-5) /HPF Ur Epithelial Cells None Seen (None Seen) /HPF Urine Bacteria None Seen (None Seen) /HPF Urine Culture Reflexed NO (NO) 12/27/23 12/27/23 Range/Units 06:07 06:07 WBC (3.98-10.04) x10^3/uL RBC (3.93-5.22) x10^6/uL Hgb (11.2-15.7) g/dL Hct (34.1-44.9) % MCV (79.4-94.8) fL MCH (25.6-32.2) pg MCHC (32.2-35.5) g/dL RDW (11.7-14.4) % Plt Count (182-369) x10^3/uL MPV (9.4-12.3) fL Gran % (34.0-71.1) % Immature Gran % (Auto) (0.001-0.429) % Nucleat RBC Rel Count (0.00-0.2) % Eos # (Auto) (0.04-0.36) x10^3/uL Immature Gran # (Auto) (0.001-0.031) x10^3u/L Absolute Lymphs (auto) (1.18-3.74) x10^3/uL Absolute Monos (auto) (0.24-0.86) x10^3/uL Absolute Nucleated RBC (0.00-0.012) x10^3u/L Lymphocytes % (19.3-51.7) % Monocytes % (4.7-12.5) % Eosinophils % (0.7-5.8) % Basophils % (0.1-1.2) % Absolute Granulocytes (1.56-6.13) x10^3/uL Basophils # (0.01-0.08) x10^3/uL PT (9.4-12.5) SECONDS INR (0.8-3.0) APTT (25.1-36.5) SECONDS Sodium (135-145) mmol/L Potassium (3.5-5.1) mmol/L Chloride (98-107) mmol/L Carbon Dioxide (22-30) mmol/L Anion Gap (5-15) MEQ/L BUN (7-17) mg/dL Creatinine (0.52-1.04) mg/dL Estimated GFR ML/MIN Glucose (74-106) mg/dL Calcium (8.4-10.2) mg/dL Total Bilirubin (0.2-1.3) mg/dL AST (14-36) U/L ALT (0-35) U/L Alkaline Phosphatase (38-126) U/L Troponin 0.00 (0.00-0.03) ng/mL NT-Pro-B Natriuret Pep (<300) pg/mL Serum Total Protein (6.3-8.2) g/dL Albumin (3.5-5.0) g/dL Prealbumin 31.30 (17.6-36.0) mg/dL Urine Color (Yellow) Urine Appearance (Clear) Urine pH (4.6-8.0) Ur Specific [place] (1.005-1.030) Urine Protein (Negative) Urine Glucose (UA) (Negative) mg/dL Urine Ketones (Negative) Urine Blood (Negative) Urine Nitrite (Negative) Urine Bilirubin (Negative) Urine Urobilinogen (0.2) mg/dL Ur Leukocyte Esterase (Negative) U Hyaline Cast (Auto) (0-2) /LPF Urine Microscopic RBC (0-5) /HPF Urine Microscopic WBC (0-5) /HPF Ur Epithelial Cells (None Seen) /HPF Urine Bacteria (None Seen) /HPF Urine Culture Reflexed (NO) - Radiology Exams Ordered Rad Exams-Entire Visit: Radiology Procedures Category Date Time Status CHEST 1 VIEW (PORTABLE) Stat Exams 12/27/23 01:26 Completed SHOULDER Routine Exams 12/27/23 09:43 Ordered - Procedures and Test Procedures and Tests throughout Hospitalization: Therapy Orders & Screens 12/27/23 04:10 Respiratory Therapy Consult ONCE Comment: Reason For Exam: Diagnosis: ACS 12/27/23 07:30 OT Screen per Nursing Assess ONCE Comment: Protocol Order Physician Instructions: Greater than 3 points order OT Admission Screening Reason For Exam: Triggered on Admission Diagnosis: ACS Open Wound/Cellutlitis/Pressure Ulcers: Yes Acute Fx/ORIF/Change in wt bearing status: No Severe MUSCULOSKELETAL pain: No ADL Dysfunction: Yes Acute CVA w/Hemiparesis/Hemiplegia: No Decreased Functional Mobility/Strength: Yes Sprain/Strain: No Acute Post-op Mobility Dysfunction: No Total Points: 9 PT Screen per Nursing Assess ONCE Comment: Protocol Order Physician Instructions: Greater than 3 points order PT Admission Screenin Reason For Exam: Triggered on Admission Diagnosis: ACS Open Wound/Cellutlitis/Pressure Ulcers: Yes Acute Fx/ORIF/Change in wt bearing status: No Severe MUSCULOSKELETAL pain: No ADL Dysfunction: Yes Acute CVA w/Hemiparesis/Hemiplegia: No Decreased Functional Mobility/Strength: Yes Sprain/Strain: No Acute Post-op Mobility Dysfunction: No Total Points: 9 12/27/23 08:29 PT Eval & Treat ( Order) ONCE Reason for Eval:: WEAKNESS, REFUSING TO GET UP TO USE RESTROOM, LIVES AT HOME, LEFT SIDED WEAKNESS FROM RECENT STROKE Diagnosis: ACS OT Eval and Treat (MD Order) ONCE Comment: Physician Instructions: Reason For Exam: Diagnosis: ACS Discharge Exam General Appearance: no apparent distress, alert Neurologic Exam: alert, oriented x 3, cooperative, normal mood/affect, nml cerebellar function, sensation nml, motor weakness (chronic left sided weakness), No motor deficits Eye Exam: PERRL, EOMI, eyes nml inspection Ears, Nose, Throat Exam: normal ENT inspection, pharynx normal, moist mucous membranes Neck Exam: normal inspection, non-tender, supple, full range of motion Respiratory Exam: normal breath sounds, lungs clear, No respiratory distress Cardiovascular Exam: regular rate/rhythm, normal heart sounds Gastrointestinal/Abdomen Exam: soft, No tenderness, No mass Pelvic Exam: deferred Rectal Exam: deferred Back Exam: normal inspection, normal range of motion, No CVA tenderness, No vertebral tenderness Extremity Exam: normal inspection, normal range of motion Skin Exam: normal color, warm, dry Wound Assessment: Skin/Wound Assessment Wound/Incision Assessment Start: 12/27/23 04:25 Text: Status: Active Freq: Q6H Protocol: Document 12/27/23 06:00 KD (Rec: 12/27/23 06:06 KD [id number]) Wound/Incision Assessment Right Buttock Wound Assessment Admission Wound Type Abrasion Wound Stage Non Pressure Wound Drainage Amount None General Appearance Open to air Surrounding Tissue [place] Comment healing abrasion, barrier cream applied Wound Photo Photo Taken Yes Date: 12/27/23 Time: 03:20 Final Diagnosis/Problem List - Final Discharge Diagnosis/Problem (1) Chest pain Current Visit: Yes Status: Acute Assessment & Plan: - Trop x3 negative - Tele - Denies history of CAD but patient at risk for vascular disease, given her history of CVA. - Analgesia. - Placed on PPI. - Chest XR: Impression: Continued nonacute chest with chronic features. - RA 93% Code(s): R07.9 - CHEST PAIN, UNSPECIFIED (2) Cerebrovascular disease Current Visit: Yes Status: Chronic Assessment & Plan: - On Plavix + ASA 81. - PT/OT - HHC OP Code(s): I67.9 - CEREBROVASCULAR DISEASE, UNSPECIFIED (3) Hypertension Current Visit: No Status: Chronic Assessment & Plan: - Monitor BP on current regimen. Code(s): I10 - ESSENTIAL (PRIMARY) HYPERTENSION (4) Left shoulder pain Current Visit: Yes Status: Acute Assessment & Plan: - XR left shoulder- reviewed - Ortho OP f/u - Chronic from CVA - Sling Code(s): M25.512 - PAIN IN LEFT SHOULDER - Discharge Discharge Date: 12/27/23 Disposition: HOME HEALTH SERVICE Condition: Stable Prescriptions: Continue hydroCHLOROthiazide [Hydrochlorothiazide] 12.5 mg PO DAILY Ondansetron ODT 4 MG [Zofran Odt 4 mg] 1 tab PO TID PRN PRN PRN Reason: Nausea Metoprolol Succinate 25 mg PO DAILY Lisinopril 20 mg [Zestril 20 MG] 1 tab PO DAILY Gabapentin 300 mg PO DAILY Docusate Sodium 100 mg [Docusate Sodium 100 MG] 1 tab PO DAILY Clopidogrel Bisulfate [Plavix] 1 tab PO DAILY Buspirone HCl 5 mg [Buspar 5 mg] 1 tab PO TID Atorvastatin Calcium 40 mg PO DAILY Aspirin [Aspirin EC] 81 mg PO DAILY Amlodipine Besylate 5 mg [Norvasc 5 mg] 1 tab PO DAILY Follow up with: EDILBERTO PULLIAM MD [Primary Care Provider] - 01/03/24 10:15 am ([place] Office) ARLETTE PALACIOS NP [NON-STAFF PHY W/O PRIVILEGES] - 01/10/24 2:00 pm
--- NOTE | 2023-12-27 12:05 | XRAY ---
Indication: Left shoulder pain. Comparison: None 3 view left shoulder demonstrates osteopenia and moderate glenohumeral/acromioclavicular degenerative changes. Chest reported separately. No other bony, articular, or soft tissue abnormalities.
[2023-12-27 12:35] VITALS: BP 115/66; PULSE 83; RESP 14; TEMP 97.3; O2SAT 94
== END 2023-12-27 14:14 | disposition home health service (06) ==
LOC: ED 01:12 → MED SURG 03:10
PROVIDERS: ADMIT Internal Medicine; ATTEND Internal Medicine
DX: R07.9 Chest pain, unspecified (principal); I24.9 Acute ischemic heart disease, unspecified; I67.9 Cerebrovascular disease, unspecified; I48.91 Unspecified atrial fibrillation; I10 Essential (primary) hypertension; M25.512 Pain in left shoulder; Z86.73 Personal history of transient ischemic attack (TIA), and cerebral infarction without residual deficits; Z79.01 Long term (current) use of anticoagulants
CPT/HCPCS: 36000; 36415; 71045; 73030; 80053; 81001; 83880; 84134; 84484; 85025; 85610; 85730; 93005; 93041; 93268; 94760; 94762; 97161; 97165; 99284; G0378; Q3014; A9270-GY

== ENCOUNTER 2024-03-20 17:30 | Emergency (ER) | payer MEDICARE ==
--- NOTE | 2024-03-20 17:32 | ERPHSYRPT ---
- History of Present Illness Time Seen by Provider: 03/20/24 17:32 Source: patient Exam Limitations: no limitations Physician History: This is a 73-year-old white female patient of Dr. Pulliam who presents by private vehicle for evaluation for possible urinary tract infection and evaluation of her left foot pressure ulcer. Patient suffered a stroke in January 2024 and she has residual left-sided hemiparesis. The pressure ulcer in her foot began approximately that time. Patient has a history of arrhythmia and her medication list includes Brilinta and Plavix. Patient has a history of hyperlipidemia, hypertension and rheumatoid arthritis. Patient denies chest p ain. Patient denies abdominal pain. Patient denies shortness of breath. The back achiness is very mild. She is more concerned about the left foot pressure ulcer possibly being infected. Patient is allergic to penicillins. Timing/Duration: yesterday Activites at Onset: none Quality: aching, other Pain Radiation: none Severity of Pain-Max: mild Severity of Pain-Current: mild Prior abdominal problems: none Sexual intercourse history: non-contributory Modifying Factors: Improves With: nothing Associated Symptoms: lower back pain (Mild left side), No abdominal pain, No fever, No chills, No nausea, No vomiting, No dysuria, No urinary frequency Allergies/Adverse Reactions: influenza virus vaccine qs [id number] (36 mos, up) [From Fluarix Quad] Allergy (Verified 12/27/23 01:37) Penicillins Allergy (Verified 12/27/23 01:37) Home Medications: Amlodipine Besylate 5 mg [Norvasc 5 mg] 1 tab PO DAILY 12/27/23 [History] Aspirin [Aspirin EC] 81 mg PO DAILY 12/27/23 [History] Atorvastatin Calcium 40 mg PO DAILY 12/27/23 [History] Clopidogrel Bisulfate [Plavix] 1 tab PO DAILY 12/27/23 [History] Docusate Sodium 100 mg [Docusate Sodium 100 MG] 1 tab PO DAILY 12/27/23 [History] Gabapentin 300 mg PO HS 12/27/23 [History] Lisinopril 20 mg [Zestril 20 MG] 1 tab PO DAILY 12/27/23 [History] Metoprolol Succinate 25 mg PO DAILY 12/27/23 [History] Ondansetron ODT 4 MG [Zofran Odt 4 mg] 1 tab PO TID PRN PRN 12/27/23 [History] Cilostazol 100 mg [Pletal 100 MG] 100 mg PO DAILY 03/20/24 [History] Gabapentin [Neurontin] 300 mg PO BID 03/20/24 [History] Ticagrelor [Brilinta] 90 mg PO BID 03/20/24 [History] Tizanidine HCl 2 mg PO DAILY 03/20/24 [History] Hx Tetanus, Diphtheria Vaccination/Date Given: No (4 years ago) Hx Influenza Vaccination/Date Given: No Hx Pneumococcal Vaccination/Date Given: No Travel Risk - Emerging Infectious Disease Are you exhibiting symptoms associated with any current EIDs: No - Review of Systems Constitutional: No Symptoms Eyes: No Symptoms Ears, Nose, & Throat: No Symptoms Respiratory: No Symptoms Cardiac: No Symptoms Abdominal/Gastrointestinal: No Symptoms Genitourinary Symptoms: No Symptoms Musculoskeletal: Back Pain (Left-sided lower back pain), No Injury Skin: Decubiti (Left foot pressure ulcer tenderness) Neurological: Other (Residual left-sided hemiparesis post CVA) Psychological: No Symptoms Endocrine: No Symptoms Hematologic/Lymphatic: No Symptoms Immunological/Allergic: No Symptoms All Other Systems: Reviewed and Negative - Past Medical History Pertinent Past Medical History: Yes Neurological History: Stroke ENT History: No Pertinent History Cardiac History: Arrhythmia, Hypertension Respiratory History: No Pertinent History Endocrine Medical History: No Pertinent History Musculoskeletal History: Rheumatoid Arthritis GI Medical History: No Pertinent History History: No Pertinent History Psycho-Social History: No Pertinent History Female Reproductive Disorders: Other Other Medical History: urinary incontinence due to not being able to get there quick enough due to stroke, a-fib - Past Surgical History Past Surgical History: Yes Neuro Surgical History: No Pertinent History Cardiac: No Pertinent History Respiratory: No Pertinent History Gastrointestinal: Appendectomy Genitourinary: No Pertinent History Musculoskeletal: No Pertinent History Female Surgical History: Hysterectomy, Section - Social History Smoking Status: Never smoker Exposure to second hand smoke: No Drug Use: none Patient Lives Alone: Yes - Social Determinants of Health Will the patient participate in the screening: Yes Do you worry about a steady place to live?: No In the past 12 months,have you had to go without utilities?: No Transportation Issues: No Has anyone in your support network made you feel unsafe?: No Have you or anyone in your house had to go without enough: No - Nursing Vital Signs Nursing Vital Signs: Initial Vital Signs Temperature 98.5 F 03/20/24 17:42 Pulse Rate 108 H 03/20/24 17:42 Respiratory Rate 20 03/20/24 17:42 Blood Pressure 110/64 03/20/24 17:42 O2 Sat by Pulse Oximetry 96 03/20/24 17:42 Pain Scale Pain Intensity 5 - Physical Exam General Appearance: no apparent distress, alert Eye Exam: PERRL/EOMI, eyes nml inspection Ears, Nose, Throat Exam: normal ENT inspection, moist mucous membranes Neck Exam: normal inspection, non-tender, supple, full range of motion Respiratory Exam: normal breath sounds, lungs clear, airway intact, No chest tenderness, No respiratory distress Cardiovascular Exam: regular rate/rhythm, normal heart sounds, normal peripheral pulses Gastrointestinal/Abdomen Exam: soft, normal bowel sounds, No tenderness Pelvic Exam: not done Rectal Exam: not done Back Exam: normal inspection, normal range of motion, No CVA tenderness, No vertebral tenderness Extremity Exam: tenderness (Left foot pressure ulcer site approximately 2 cm in its greatest width and approximately 5 cm in its length with fibrinous exudate present. No cellulitis), other (Residual left side hemiparesis post CVA) Skin Exam: decubitus (Above extremity section), other (The above extremity section) Lymphatic Exam: No adenopathy SpO2 Interpretation: normal O2 Delivery: Room Air - Course Nursing assessment & vital signs reviewed: Yes Ordered Tests: Active Orders 24 hr Category Date Time Status UA W/RFX UR CULTURE Stat Lab 03/20/24 17:50 Completed Lab/Rad Data: Laboratory Results 03/20/24 03/20/24 Range/Units 18:03 17:50 Urine Color Yellow (Yellow) Urine Appearance Cloudy A (Clear) Urine pH 5.0 (4.6-8.0) Ur Specific [place] >=1.030 A (1.005-1.030) Urine Protein Negative (Negative) Urine Glucose (UA) Negative (Negative) mg/dL Urine Ketones Negative (Negative) Urine Blood Moderate A (Negative) Urine Nitrite Negative (Negative) Urine Bilirubin Negative (Negative) Urine Urobilinogen 0.2 (0.2) mg/dL Ur Leukocyte Esterase Negative (Negative) U Hyaline Cast (Auto) NONE SEEN (0-2) /LPF Urine Microscopic RBC 11-20 A (0-5) /HPF Urine Microscopic WBC 3-5 (0-5) /HPF Ur Epithelial Cells Many A (None Seen) /HPF Urine Bacteria None Seen (None Seen) /HPF Urine Culture Reflexed NO (NO) Influenza Type A Ag NEGATIVE (NEGATIVE) Influenza Type B Ag NEGATIVE (NEGATIVE) RSV (PCR) NEGATIVE (NEGATIVE) SARS-CoV-2 (PCR) NEGATIVE (NEGATIVE) Group A Strep Antibody NOT DETECTED (NEGATIVE) - Progress Progress: re-examined, unchanged Air Movement: good Progress Note: 03/20/24 19:06 My medical decision making and the assignment of low complexity to this patient's medical issue today is based on review of the patient's past medical history, review the patient's medication list, review the patient drug allergy list, history present illness and physical findings on examination. The workup includes urinalysis. Differential diagnosis includes but not limited to cellulitis left foot, fibrinous exudate pressure ulcer left foot, muscle skeletal back pain, urinary tract infection I interpreted the patient's laboratory data results. The patient does not have a urinary tract infection. I think her mild back pain is secondary to muscle skeletal spasm. I do not think she has an intra-abdominal/retroperitoneal issue. Her vital signs are stable. She is in no distress. I reviewed the findings with the patient and her caregiver. We, together, opted for not obtaining any other radiographic studies or blood work. We will provide her with Bactrim DS which will cover urinary tract infection and wound infection if present. Blood Culture(s) Obtained: No Antibiotics given: Yes Counseled pt/family regarding: lab results, diagnosis, need for follow-up Medical Desision Making - Independent Historian Additional History obtained from: Traffic Rate Analyst - Diagnostic Testing Diagnostic test were ordered, analyzed, and reviewed by me: Yes - Risk of complications The pt has a mod risk of morbidity or mortality based on: Need for prescription drug management - Departure Departure Disposition: Home Clinical Impression: Back pain, Pressure ulcer of foot, Inflammatory exudate, Wound exudate without odor Condition: Stable Critical Care Time: No Referrals: EDILBERTO PULLIAM MD [Primary Care Provider] - Follow up/PCP as directed Additional Instructions: Drink plenty of fluids. Take your medications as prescribed. At home, mechanically scrub the wound twice a day as discussed and cover with a nonstick gauze. Continue your home health care of the pressure ulcer of the left foot. In addition, keep your appointments to see wound care center for continued care of your left foot pressure ulcer. Prescriptions: Smz/Tmp Ds Tablet [Bactrim Ds Tablet] 1 udtab PO BID #10 tablet
[2024-03-20 17:45] VITALS: TEMP 98.5
[2024-03-20 18:05] LABS: Appearance Cloudy (Clear); Bacteria None Seen /HPF (None Seen); Bilirubin Negative (Negative); Blood Moderate (Negative); Epithelial Cells Many /HPF (None Seen); Glucose, Urine Negative (Negative); Hyaline Casts NONE SEEN /LPF (0-2); Ketones Negative (Negative); Leukocyte Esterase Negative (Negative); Nitrite Negative (Negative); Protein,Urine Dip Negative (Negative); Specific Gravity >=1.030 (1.005-1.030); Urobilinogen 0.2 mg/dL (0.2)
[2024-03-20 18:29] LABS: Group A Strep NOT DETECTED (NEGATIVE)
[2024-03-20 18:43] LABS: INFLUENZA A NEGATIVE (NEGATIVE); INFLUENZA B NEGATIVE (NEGATIVE); RESPIRATORY SYNCTIAL VIRUS NEGATIVE (NEGATIVE); SARS-CoV-2 Xpert Express NEGATIVE (NEGATIVE)
[2024-03-20] MEDS ORDERED: BACTRIM DS TABLET PO ONE (19:07)
[2024-03-20] MEDS: BACTRIM DS TABLET PO ONE (19:08)
[2024-03-20] MEDS ORDERED: TYLENOL 325 MG ONE (19:30)
[2024-03-20] MEDS: TYLENOL 325 MG PO STA (19:31)
[2024-03-20 19:37] VITALS: BP 118/66; PULSE 95; RESP 16; O2SAT 100
== END 2024-03-20 19:36 | disposition home or self-care (01) ==
LOC: ED 17:30
DX: M54.9 Dorsalgia, unspecified (principal); L89.899 Pressure ulcer of other site, unspecified stage; Z79.899 Other long term (current) drug therapy; Z79.01 Long term (current) use of anticoagulants; I69.354 Hemiplegia and hemiparesis following cerebral infarction affecting left non-dominant side
CPT/HCPCS: 0241U; 81001; 87651; 99283; A9270-GY

== ENCOUNTER 2024-04-11 10:55 | Emergency (ER) | payer MEDICARE ==
--- NOTE | 2024-04-11 11:03 | ERPHSYRPT ---
- History of Present Illness Time Seen by Provider: 04/11/24 11:02 Source: patient, family Exam Limitations: no limitations Physician History: This is a 73-year-old overweight white female who presents to the emergency department with swelling and redness to her right index finger. Patient had injury to this site in June 2023 which she describes as a burn. In the last month, patient has noticed increased swelling and redness. Surprisingly, the patient states she does not have pain. Recently, the office of her primary care provider told her to apply Aspercreme on the area. At that time there was no significant redness. Signs and symptoms have not improved Occurred: other (Initial injury of the right index finger June 2023. Current swelling for 1 month) Method of Injury: burn (June of 2023.) Quality: aching Severity of Pain-Max: mild Severity of Pain-Current: mild Extremities Pain Location: 2nd finger: right Modifying Factors: Improves With: nothing Associated Symptoms: none Allergies/Adverse Reactions: influenza virus vaccine qs [id number] (36 mos, up) [From Fluarix Quad] Allergy (Verified 12/27/23 01:37) Penicillins Allergy (Verified 12/27/23 01:37) Home Medications: Amlodipine Besylate 5 mg [Norvasc 5 mg] 1 tab PO DAILY 12/27/23 [History] Aspirin [Aspirin EC] 81 mg PO DAILY 12/27/23 [History] Atorvastatin Calcium 40 mg PO DAILY 12/27/23 [History] Clopidogrel Bisulfate [Plavix] 1 tab PO DAILY 12/27/23 [History] Docusate Sodium 100 mg [Docusate Sodium 100 MG] 1 tab PO DAILY 12/27/23 [History] Gabapentin 300 mg PO HS 12/27/23 [History] Lisinopril 20 mg [Zestril 20 MG] 1 tab PO DAILY 12/27/23 [History] Metoprolol Succinate 25 mg PO DAILY 12/27/23 [History] Ondansetron ODT 4 MG [Zofran Odt 4 mg] 1 tab PO TID PRN PRN 12/27/23 [History] Cilostazol 100 mg [Pletal 100 MG] 100 mg PO DAILY 03/20/24 [History] Gabapentin [Neurontin] 300 mg PO BID 03/20/24 [History] Ticagrelor [Brilinta] 90 mg PO BID 03/20/24 [History] Tizanidine HCl 2 mg PO DAILY 03/20/24 [History] Hx Tetanus, Diphtheria Vaccination/Date Given: No (4 years ago) Hx Influenza Vaccination/Date Given: No Hx Pneumococcal Vaccination/Date Given: No Travel Risk - International Travel Have you traveled outside of the country in past 3 weeks: No - Emerging Infectious Disease Are you exhibiting symptoms associated with any current EIDs: No - Review of Systems Constitutional: No Symptoms Eyes: No Symptoms Ears, Nose, & Throat: No Symptoms Respiratory: No Symptoms Cardiac: No Symptoms Abdominal/Gastrointestinal: No Symptoms Genitourinary Symptoms: No Symptoms Musculoskeletal: No Symptoms Skin: Cellulitis (Questionable cellulitis right index finger) Neurological: No Symptoms Psychological: No Symptoms Endocrine: No Symptoms Hematologic/Lymphatic: No Symptoms Immunological/Allergic: No Symptoms All Other Systems: Reviewed and Negative - Past Medical History Pertinent Past Medical History: Yes Neurological History: Stroke ENT History: No Pertinent History Cardiac History: Arrhythmia, Hypertension Respiratory History: No Pertinent History Endocrine Medical History: No Pertinent History Musculoskeletal History: Rheumatoid Arthritis GI Medical History: No Pertinent History History: No Pertinent History Psycho-Social History: No Pertinent History Female Reproductive Disorders: Other Other Medical History: urinary incontinence due to not being able to get there quick enough due to stroke, a-fib - Past Surgical History Past Surgical History: Yes Neuro Surgical History: No Pertinent History Cardiac: No Pertinent History Respiratory: No Pertinent History Gastrointestinal: Appendectomy Genitourinary: No Pertinent History Musculoskeletal: No Pertinent History Female Surgical History: Hysterectomy, Section - Social History Smoking Status: Never smoker Exposure to second hand smoke: No Drug Use: none Patient Lives Alone: Yes - Social Determinants of Health Will the patient participate in the screening: Yes Do you worry about a steady place to live?: No In the past 12 months,have you had to go without utilities?: No Transportation Issues: No Has anyone in your support network made you feel unsafe?: No Have you or anyone in your house had to go without enough: No - Nursing Vital Signs Nursing Vital Signs: Initial Vital Signs Temperature 97 F 04/11/24 11:10 Pulse Rate 95 H 04/11/24 11:10 Respiratory Rate 16 04/11/24 11:10 Blood Pressure 145/101 04/11/24 11:10 O2 Sat by Pulse Oximetry 96 04/11/24 11:10 Pain Scale Pain Intensity 7 - Physical Exam General Appearance: no apparent distress, alert, anxiety, obese Eyes, Ears, Nose, Throat Exam: normal ENT inspection, moist mucous membranes Neck Exam: normal inspection, non-tender, supple, full range of motion Cardiovascular/Respiratory Exam: chest non-tender, no respiratory distress Abdominal Exam: non-tender Back Exam: normal inspection, normal range of motion, No CVA tenderness, No vertebral tenderness Shoulder Exam: normal inspection, non-tender, no evidence of injury, normal ROM Elbow/Forearm Exam: normal inspection, non-tender, no evidence of injury, normal ROM Wrist Exam: normal inspection, non-tender, no evidence of injury, normal ROM Hand Exam: normal ROM, swelling (Swelling and redness right index finger with minimal tenderness present. No proximal streaking present) Neuro/Tendon Exam: normal sensation, normal motor functions, normal tendon functions Mental Status Exam: alert, oriented x 3, cooperative Skin Exam: other (Questionable cellulitis right index finger) SpO2 Interpretation: normal O2 Delivery: Room Air - Course Nursing assessment & vital signs reviewed: Yes - Progress Progress: unchanged Progress Note: 04/11/24 12:12 My medical decision making and the assignment of low complexity to this patient's medical issue today is based on review of the patient's past medical history, review the patient's medication list, reviewed patient drug allergy list, history present illness and physical findings on examination. No radiographic or laboratory studies are necessary in this patient workup. Differential diagnosis includes but is not limited to gouty arthritis, rheumatoid arthritic flareup, cellulitis Counseled pt/family regarding: need for follow-up Medical Desision Making - Independent Historian Additional History obtained from: Family - Diagnostic Testing Diagnostic test were ordered, analyzed, and reviewed by me: No - Risk of complications The pt has a mod risk of morbidity or mortality based on: Need for prescription drug management - Departure Departure Disposition: Home Clinical Impression: Cellulitis of right index finger Condition: Stable Critical Care Time: No Referrals: EDILBERTO PULLIAM MD [Primary Care Provider] - Follow up/PCP as directed Additional Instructions: Take your antibiotics, steroids and other prescription medications as prescribed. Return to the emergency department on 04/13/2024, for reassessment. Return sooner if symptoms worsen. Applying the Aspercreme. Prescriptions: Smz/Tmp Ds Tablet [Bactrim Ds Tablet] 1 udtab PO BID #14 tablet Prednisone 10 mg [Deltasone 10 mg] 10 mg PO TID #12 tablet
[2024-04-11 11:11] VITALS: RESP 16; TEMP 97
[2024-04-11] MEDS ORDERED: BACTRIM DS TABLET PO ONE (12:24)
[2024-04-11] MEDS ORDERED: DELTASONE 20 MG ONE (12:24)
[2024-04-11] MEDS: DELTASONE 20 MG PO ONE (12:25)
[2024-04-11] MEDS: BACTRIM DS TABLET PO ONE (12:25)
[2024-04-11 12:29] VITALS: BP 150/81; PULSE 88; O2SAT 97
== END 2024-04-11 12:34 | disposition home or self-care (01) ==
LOC: ED 10:55
DX: L03.011 Cellulitis of right finger (principal); M79.89 Other specified soft tissue disorders; Z79.02 Long term (current) use of antithrombotics/antiplatelets; Z79.899 Other long term (current) drug therapy
CPT/HCPCS: 99281; 99283; A9270-GY

== ENCOUNTER 2024-04-13 08:02 | Inpatient (IN) | payer MEDICARE ==
--- NOTE | 2024-04-13 08:28 | ERPHSYRPT ---
- History of Present Illness Time Seen by Provider: 04/13/24 08:06 Source: patient Exam Limitations: no limitations Physician History: Pt states for the past 4 hours she has had shortness of air and intermittent burning/tingling in her left leg with episodes lasting up to 1 hour and intensity of 8/10. Pt denies any recent trauma. Pt states she has had an ulcer on her left lower leg for the past 10 months after a stroke with left sided weakness and has had a dressing change twice weekly during this period. Pt also states her right index finger became red, swollen and hot 2 days ago, came to [facility] ER and was placed on bactrim & prednisone. Pt denies chest pain, cough, abdominal pain, fever. Allergies/Adverse Reactions: influenza virus vaccine qs [id number] (36 mos, up) [From Fluarix Quad] Allergy (Verified 12/27/23 01:37) Penicillins Allergy (Verified 12/27/23 01:37) morphine Adverse Reaction (Verified 04/13/24 08:28) states makes her wild Home Medications: Amlodipine Besylate 5 mg [Norvasc 5 mg] 1 tab PO DAILY 12/27/23 [History] Aspirin [Aspirin EC] 81 mg PO DAILY 12/27/23 [History] Atorvastatin Calcium 40 mg PO DAILY 12/27/23 [History] Clopidogrel Bisulfate [Plavix] 1 tab PO DAILY 12/27/23 [History] Docusate Sodium 100 mg [Docusate Sodium 100 MG] 1 tab PO DAILY 12/27/23 [History] Gabapentin 300 mg PO HS 12/27/23 [History] Lisinopril 20 mg [Zestril 20 MG] 1 tab PO DAILY 12/27/23 [History] Metoprolol Succinate 25 mg PO DAILY 12/27/23 [History] Ondansetron ODT 4 MG [Zofran Odt 4 mg] 1 tab PO TID PRN PRN 12/27/23 [History] Cilostazol 100 mg [Pletal 100 MG] 100 mg PO DAILY 03/20/24 [History] Gabapentin [Neurontin] 300 mg PO BID 03/20/24 [History] Ticagrelor [Brilinta] 90 mg PO BID 03/20/24 [History] Tizanidine HCl 2 mg PO DAILY 03/20/24 [History] Hx Tetanus, Diphtheria Vaccination/Date Given: No (4 years ago) Hx Influenza Vaccination/Date Given: No Hx Pneumococcal Vaccination/Date Given: No Travel Risk - Emerging Infectious Disease Are you exhibiting symptoms associated with any current EIDs: No - Review of Systems Constitutional: No Fever Respiratory: Dyspnea, No Cough Cardiac: No Chest Pain Abdominal/Gastrointestinal: No Abdominal Pain Musculoskeletal: Other (red, swollen & hot right index finger; burning/tingling in left leg) - Past Medical History Pertinent Past Medical History: Yes Neurological History: Stroke ENT History: No Pertinent History Cardiac History: Arrhythmia, Hypertension Respiratory History: No Pertinent History Endocrine Medical History: No Pertinent History Musculoskeletal History: Rheumatoid Arthritis GI Medical History: No Pertinent History History: No Pertinent History Psycho-Social History: No Pertinent History Female Reproductive Disorders: Other Other Medical History: urinary incontinence due to not being able to get there quick enough due to stroke, a-fib - Past Surgical History Past Surgical History: Yes Neuro Surgical History: No Pertinent History Cardiac: No Pertinent History Respiratory: No Pertinent History Gastrointestinal: Appendectomy Genitourinary: No Pertinent History Musculoskeletal: No Pertinent History Female Surgical History: Hysterectomy, Section - Social History Smoking Status: Never smoker Exposure to second hand smoke: No Drug Use: none Patient Lives Alone: Yes - Social Determinants of Health Will the patient participate in the screening: Yes Do you worry about a steady place to live?: No In the past 12 months,have you had to go without utilities?: No Transportation Issues: No Has anyone in your support network made you feel unsafe?: No Have you or anyone in your house had to go without enough: No - Nursing Vital Signs Nursing Vital Signs: Initial Vital Signs Temperature 98.3 F 04/13/24 08:08 Pulse Rate 92 H 04/13/24 08:08 Respiratory Rate 16 04/13/24 08:08 Blood Pressure 153/74 04/13/24 08:08 O2 Sat by Pulse Oximetry 95 04/13/24 08:08 Pain Scale Pain Intensity 10 - Physical Exam General Appearance: alert Eyes, Ears, Nose, Throat Exam: pharynx normal Neck Exam: normal inspection Cardiovascular/Respiratory Exam: normal breath sounds, heart sounds normal Gastrointestinal/Abdominal Exam: soft (B.S. normal) Back Exam: normal inspection Hips Exam: left: limited range of motion (ongoing) Legs Exam: left leg: limited range of motion (ongoing), soft tissue tenderness (distal lateral aspect of left lower leg has erythema and mild warmth surrounding an ulcer) Knees Exam: left knee: other (ongoing limited rom) Ankle Exam: left ankle: limited range of motion (ongoing) Foot Exam: left foot: limited range of motion (ongoing) Neuro/Tendon Exam: motor deficit (left upper extremity paralysis(ongoing)) Mental Status Exam: alert, cooperative Skin Exam: other (right index finger is mildly edematous, erythematous and warm), No cyanosis - Course EKG Interpreted by Me: RATE (82), Sinus Rhythm, Left Scribner Deviation, Other (QTc = 437) - CT Exams Chest CT Interpretation: Tele-radiologist Report (No evidence of pulmonary embolism. See rest of report.) - Radiology Ultrasound Exam Left Venous Lower Extremity Ultrasound: Other (Tech report: Left leg negative for DVT.) Ordered Tests: Active Orders 24 hr Category Date Time Status EKG-ER Only STAT Care 04/13/24 08:19 Active IV Insertion STAT Care 04/13/24 08:19 Active Pulse Oximetry (ED) STAT Care 04/13/24 08:19 Active CHEST WITH CONTRAST [CT] Stat Exams 04/13/24 08:21 Completed VENOUS UNILAT/LIMITED EXTREMIT [US] Stat Exams 04/13/24 08:25 Taken BLOOD CULTURE Stat Lab 04/13/24 08:45 Received CBC W DIFF Stat Lab 04/13/24 08:54 Completed CMP Stat Lab 04/13/24 08:54 Completed CULTURE,URINE Stat Lab 04/13/24 09:21 Ordered Lactic Acid Stat Lab 04/13/24 08:52 Completed MAGNESIUM Stat Lab 04/13/24 08:54 Completed NT PRO BNPII Stat Lab 04/13/24 08:54 Completed PROTIME WITH INR Stat Lab 04/13/24 08:54 Completed PTT Stat Lab 04/13/24 08:54 Completed TROPONIN Q4H Lab 04/13/24 08:54 Completed TROPONIN Q4H Lab 04/13/24 12:30 Received TROPONIN Q4H Lab 04/13/24 16:30 Ordered UA W/RFX UR CULTURE Stat Lab 04/13/24 08:44 Completed VENOUS BLOOD GAS Stat Lab 04/13/24 08:52 Completed Medication Summary Discontinued Medications Generic Name Dose Route Start Last Admin Trade Name Ramesh PRN Reason Stop Dose Admin Fentanyl Citrate 25 mcg 04/13/24 11:00 04/13/24 11:20 Fentanyl Citrate 100 Mcg/2 Ml* Vial IV 04/13/24 11:01 25 mcg STAT ONE Administration Fentanyl Citrate Confirm 04/13/24 11:18 Fentanyl Citrate 100 Mcg/2 Ml* Vial Administered 04/13/24 11:19 Dose 100 mcg .ROUTE .STK-MED ONE Clindamycin HCl/Dextrose 600 mg in 50 mls @ 100 mls/hr 04/13/24 08:23 04/13/24 09:57 Clindamycin-D5w 600 Mg/50 Ml IV 04/13/24 08:52 Infused STAT STA Infusion Acetaminophen 1,000 mg in 100 mls @ 400 mls/hr 04/13/24 08:43 04/13/24 09:54 Ofirmev IV 04/13/24 08:57 400 mls/hr 1HRPRIOR ONE Administration Clindamycin HCl/Dextrose Confirm 04/13/24 09:17 Clindamycin-D5w 600 Mg/50 Ml Administered 04/13/24 09:18 Dose 600 mg in 50 mls @ ud IV .STK-MED ONE Acetaminophen Confirm 04/13/24 09:37 Ofirmev Administered 04/13/24 09:38 Dose 100 mls @ ud IV .STK-MED ONE Lab/Rad Data: Laboratory Result Diagrams 04/13/24 08:54 04/13/24 08:54 Laboratory Results 04/13/24 04/13/24 04/13/24 Range/Units 08:54 08:54 08:54 WBC (3.98-10.04) x10^3/uL RBC (3.93-5.22) x10^6/uL Hgb (11.2-15.7) g/dL Hct (34.1-44.9) % MCV (79.4-94.8) fL MCH (25.6-32.2) pg MCHC (32.2-35.5) g/dL RDW (11.7-14.4) % Plt Count (182-369) x10^3/uL MPV (9.4-12.3) fL Gran % (34.0-71.1) % Immature Gran % (Auto) (0.001-0.429) % Nucleat RBC Rel Count (0.00-0.2) % Eos # (Auto) (0.04-0.36) x10^3/uL Immature Gran # (Auto) (0.001-0.031) x10^3u/L Absolute Lymphs (auto) (1.18-3.74) x10^3/uL Absolute Monos (auto) (0.24-0.86) x10^3/uL Absolute Nucleated RBC (0.00-0.012) x10^3u/L Lymphocytes % (19.3-51.7) % Monocytes % (4.7-12.5) % Eosinophils % (0.7-5.8) % Basophils % (0.1-1.2) % Absolute Granulocytes (1.56-6.13) x10^3/uL Basophils # (0.01-0.08) x10^3/uL PT 11.3 (9.4-12.5) SECONDS INR 1.04 (0.8-3.0) APTT 27.9 (25.1-36.5) SECONDS pO2/FiO2 Ratio % VBG pH (7.32-7.42) VBG pCO2 at Pat Temp (42-55) mm/Hg VBG pO2 at Pat Temp (25-40) mm/Hg VBG HCO3 (22-28) meq/L VBG O2 Sat (Bhargavi) (95-100) VBG Base Excess (-2.0-2.0) VBG Hemoglobin VBG Carboxyhemoglobin (0.0-6.9) % T HGB POC Potassium (3.5-5.1) Sodium (135-145) mmol/L Potassium (3.5-5.1) mmol/L Chloride (98-107) mmol/L Carbon Dioxide (22-30) mmol/L Anion Gap (5-15) MEQ/L BUN (7-17) mg/dL Creatinine (0.52-1.04) mg/dL Estimated GFR ML/MIN Glucose (74-106) mg/dL Lactic Acid (0.4-2.0) Calcium (8.4-10.2) mg/dL Magnesium (1.6-2.3) mg/dL Total Bilirubin (0.2-1.3) mg/dL AST (14-36) U/L ALT (0-35) U/L Alkaline Phosphatase (38-126) U/L Troponin I < 0.012 (0.000-0.033) ng/mL NT-Pro-B Natriuret Pep (<300) pg/mL Serum Total Protein (6.3-8.2) g/dL Albumin (3.5-5.0) g/dL Urine Color (Yellow) Urine Appearance (Clear) Urine pH (4.6-8.0) Ur Specific Turrell (1.005-1.030) Urine Protein (Negative) Urine Glucose (UA) (Negative) mg/dL Urine Ketones (Negative) Urine Blood (Negative) Urine Nitrite (Negative) Urine Bilirubin (Negative) Urine Urobilinogen (0.2) mg/dL Ur Leukocyte Esterase (Negative) U Hyaline Cast (Auto) (0-2) /LPF Urine Microscopic RBC (0-5) /HPF Urine Microscopic WBC (0-5) /HPF Ur Epithelial Cells (None Seen) /HPF Urine Bacteria (None Seen) /HPF Urine Culture Reflexed (NO) Influenza Type A Ag NEGATIVE (NEGATIVE) Influenza Type B Ag NEGATIVE (NEGATIVE) RSV (PCR) NEGATIVE (NEGATIVE) SARS-CoV-2 (PCR) NEGATIVE (NEGATIVE) 04/13/24 04/13/24 04/13/24 Range/Units 08:54 08:54 08:52 WBC 7.4 (3.98-10.04) x10^3/uL RBC 3.22 L (3.93-5.22) x10^6/uL Hgb 9.9 L (11.2-15.7) g/dL Hct 31.8 L (34.1-44.9) % MCV 98.8 H (79.4-94.8) fL MCH 30.7 (25.6-32.2) pg MCHC 31.1 L (32.2-35.5) g/dL RDW 13.2 (11.7-14.4) % Plt Count 380 H (182-369) x10^3/uL MPV 9.2 L (9.4-12.3) fL Gran % 68.5 (34.0-71.1) % Immature Gran % (Auto) 0.3 (0.001-0.429) % Nucleat RBC Rel Count 0.0 (0.00-0.2) % Eos # (Auto) 0.04 (0.04-0.36) x10^3/uL Immature Gran # (Auto) 0.02 (0.001-0.031) x10^3u/L Absolute Lymphs (auto) 1.79 (1.18-3.74) x10^3/uL Absolute Monos (auto) 0.43 (0.24-0.86) x10^3/uL Absolute Nucleated RBC 0.00 (0.00-0.012) x10^3u/L Lymphocytes % 24.2 (19.3-51.7) % Monocytes % 5.8 (4.7-12.5) % Eosinophils % 0.5 L (0.7-5.8) % Basophils % 0.7 (0.1-1.2) % Absolute Granulocytes 5.06 (1.56-6.13) x10^3/uL Basophils # 0.05 (0.01-0.08) x10^3/uL PT (9.4-12.5) SECONDS INR (0.8-3.0) APTT (25.1-36.5) SECONDS pO2/FiO2 Ratio 21.0 % VBG pH 7.49 H (7.32-7.42) VBG pCO2 at Pat Temp 35 L (42-55) mm/Hg VBG pO2 at Pat Temp 45 H (25-40) mm/Hg VBG HCO3 26.7 (22-28) meq/L VBG O2 Sat (Bhargavi) 83.3 L (95-100) VBG Base Excess 3.4 H (-2.0-2.0) VBG Hemoglobin 10.3 VBG Carboxyhemoglobin 6.4 (0.0-6.9) % T HGB POC Potassium 4.2 (3.5-5.1) Sodium 138 (135-145) mmol/L Potassium 4.1 (3.5-5.1) mmol/L Chloride 107 (98-107) mmol/L Carbon Dioxide 25 (22-30) mmol/L Anion Gap 10.5 (5-15) MEQ/L BUN 20 H (7-17) mg/dL Creatinine 0.86 (0.52-1.04) mg/dL Estimated GFR 70.9 ML/MIN Glucose 105 (74-106) mg/dL Lactic Acid (0.4-2.0) Calcium 9.2 (8.4-10.2) mg/dL Magnesium 1.9 (1.6-2.3) mg/dL Total Bilirubin 0.60 (0.2-1.3) mg/dL AST 23 (14-36) U/L ALT 14 (0-35) U/L Alkaline Phosphatase 74 (38-126) U/L Troponin I (0.000-0.033) ng/mL NT-Pro-B Natriuret Pep 361 (<300) pg/mL Serum Total Protein 7.0 (6.3-8.2) g/dL Albumin 3.9 (3.5-5.0) g/dL Urine Color (Yellow) Urine Appearance (Clear) Urine pH (4.6-8.0) Ur Specific Turrell (1.005-1.030) Urine Protein (Negative) Urine Glucose (UA) (Negative) mg/dL Urine Ketones (Negative) Urine Blood (Negative) Urine Nitrite (Negative) Urine Bilirubin (Negative) Urine Urobilinogen (0.2) mg/dL Ur Leukocyte Esterase (Negative) U Hyaline Cast (Auto) (0-2) /LPF Urine Microscopic RBC (0-5) /HPF Urine Microscopic WBC (0-5) /HPF Ur Epithelial Cells (None Seen) /HPF Urine Bacteria (None Seen) /HPF Urine Culture Reflexed (NO) Influenza Type A Ag (NEGATIVE) Influenza Type B Ag (NEGATIVE) RSV (PCR) (NEGATIVE) SARS-CoV-2 (PCR) (NEGATIVE) 04/13/24 04/13/24 Range/Units 08:52 08:44 WBC (3.98-10.04) x10^3/uL RBC (3.93-5.22) x10^6/uL Hgb (11.2-15.7) g/dL Hct (34.1-44.9) % MCV (79.4-94.8) fL MCH (25.6-32.2) pg MCHC (32.2-35.5) g/dL RDW (11.7-14.4) % Plt Count (182-369) x10^3/uL MPV (9.4-12.3) fL Gran % (34.0-71.1) % Immature Gran % (Auto) (0.001-0.429) % Nucleat RBC Rel Count (0.00-0.2) % Eos # (Auto) (0.04-0.36) x10^3/uL Immature Gran # (Auto) (0.001-0.031) x10^3u/L Absolute Lymphs (auto) (1.18-3.74) x10^3/uL Absolute Monos (auto) (0.24-0.86) x10^3/uL Absolute Nucleated RBC (0.00-0.012) x10^3u/L Lymphocytes % (19.3-51.7) % Monocytes % (4.7-12.5) % Eosinophils % (0.7-5.8) % Basophils % (0.1-1.2) % Absolute Granulocytes (1.56-6.13) x10^3/uL Basophils # (0.01-0.08) x10^3/uL PT (9.4-12.5) SECONDS INR (0.8-3.0) APTT (25.1-36.5) SECONDS pO2/FiO2 Ratio % VBG pH (7.32-7.42) VBG pCO2 at Pat Temp (42-55) mm/Hg VBG pO2 at Pat Temp (25-40) mm/Hg VBG HCO3 (22-28) meq/L VBG O2 Sat (Bhargavi) (95-100) VBG Base Excess (-2.0-2.0) VBG Hemoglobin VBG Carboxyhemoglobin (0.0-6.9) % T HGB POC Potassium (3.5-5.1) Sodium (135-145) mmol/L Potassium (3.5-5.1) mmol/L Chloride (98-107) mmol/L Carbon Dioxide (22-30) mmol/L Anion Gap (5-15) MEQ/L BUN (7-17) mg/dL Creatinine (0.52-1.04) mg/dL Estimated GFR ML/MIN Glucose (74-106) mg/dL Lactic Acid 1.0 (0.4-2.0) Calcium (8.4-10.2) mg/dL Magnesium (1.6-2.3) mg/dL Total Bilirubin (0.2-1.3) mg/dL AST (14-36) U/L ALT (0-35) U/L Alkaline Phosphatase (38-126) U/L Troponin I (0.000-0.033) ng/mL NT-Pro-B Natriuret Pep (<300) pg/mL Serum Total Protein (6.3-8.2) g/dL Albumin (3.5-5.0) g/dL Urine Color Yellow (Yellow) Urine Appearance Clear (Clear) Urine pH 7.0 (4.6-8.0) Ur Specific Turrell 1.015 (1.005-1.030) Urine Protein Negative (Negative) Urine Glucose (UA) Negative (Negative) mg/dL Urine Ketones Negative (Negative) Urine Blood Negative (Negative) Urine Nitrite Negative (Negative) Urine Bilirubin Negative (Negative) Urine Urobilinogen 0.2 (0.2) mg/dL Ur Leukocyte Esterase Negative (Negative) U Hyaline Cast (Auto) NONE SEEN (0-2) /LPF Urine Microscopic RBC 0-2 (0-5) /HPF Urine Microscopic WBC 0-2 (0-5) /HPF Ur Epithelial Cells Rare (None Seen) /HPF Urine Bacteria None Seen (None Seen) /HPF Urine Culture Reflexed NO (NO) Influenza Type A Ag (NEGATIVE) Influenza Type B Ag (NEGATIVE) RSV (PCR) (NEGATIVE) SARS-CoV-2 (PCR) (NEGATIVE) - Progress Progress: unchanged Discussed with : Other (Spoke with & discussed case with Dr. Milian([id number]) - obs) Will see patient in: hospital (observation) Counseled pt/family regarding: lab results, diagnosis, rad results Medical Desision Making - Diagnostic Testing Diagnostic test were ordered, analyzed, and reviewed by me: Yes Radiological Interpretation: Teleradiologist Report - Departure Departure Disposition: Observation Clinical Impression: Cellulitis of right index finger, left leg cellulitis, ulcer of left leg, Shortness of air Condition: Stable Critical Care Time: No Referrals: EDILBERTO PULLIAM MD [Primary Care Provider] - Follow up/PCP as directed
[2024-04-13 09:00] LABS: VBG BASE EXCESS 3.4 (-2.0-2.0); VBG CARBOXYHEMOGLOBIN 6.4 % T HGB (0.0-6.9); VBG HCO3- 26.7 meq/L (22-28); VBG HEMOGLOBIN 10.3; VBG O2 SATURATION 83.3 (95-100); VBG POTASSIUM 4.2 (3.5-5.1); VBG pH 7.49 (7.32-7.42)
[2024-04-13 09:03] LABS: Absolute Neutrophil Ct (ANC) 5.06 x10^3/uL (1.56-6.13); BASOPHIL % 0.7 % (0.1-1.2); Basophil (Absolute #) 0.05 x10^3/uL (0.01-0.08); Eosinophil % 0.5 % (0.7-5.8); Eosinophil (Absolute #) 0.04 x10^3/uL (0.04-0.36); Hematocrit 31.8 % (34.1-44.9); Hemoglobin 9.9 g/dL (11.2-15.7); IMMATURE GRAN # 0.02 x10^3u/L (0.001-0.031); IMMATURE GRAN % 0.3 % (0.001-0.429); Lymphocyte (Absolute #) 1.79 x10^3/uL (1.18-3.74); Lymphocytes % 24.2 % (19.3-51.7); Mean Cell Volume 98.8 fL (79.4-94.8); Mean Corpuscular Hemoglobin 30.7 pg (25.6-32.2); Mean Corpuscular Hgb Concent. 31.1 g/dL (32.2-35.5); Mean Platelet Volume 9.2 fL (9.4-12.3); Monocyte (Absolute #) 0.43 x10^3/uL (0.24-0.86); Monocytes % 5.8 % (4.7-12.5); Neutrophil % 68.5 % (34.0-71.1); Platelet Count 380 x10^3/uL (182-369); Red Blood Count 3.22 x10^6/uL (3.93-5.22); Red Cell Distribution Width 13.2 % (11.7-14.4); White Blood Count 7.4 x10^3/uL (3.98-10.04)
[2024-04-13 09:14] LABS: Appearance Clear (Clear); Bacteria None Seen /HPF (None Seen); Bilirubin Negative (Negative); Blood Negative (Negative); Epithelial Cells Rare /HPF (None Seen); Glucose, Urine Negative (Negative); Hyaline Casts NONE SEEN /LPF (0-2); Ketones Negative (Negative); Leukocyte Esterase Negative (Negative); Nitrite Negative (Negative); Protein,Urine Dip Negative (Negative); RBC 0-2 /HPF (0-5); Specific Gravity 1.015 (1.005-1.030); Urobilinogen 0.2 mg/dL (0.2); WBC 0-2 /HPF (0-5)
[2024-04-13] MEDS ORDERED: CLINDAMYCIN-D5W 600 MG/50 ML*** 600 MG/50 ML BAG IV ONE (09:17)
[2024-04-13] MEDS: CLINDAMYCIN-D5W 600 MG/50 ML*** 600 MG/50 ML BAG IV STA (09:19)
[2024-04-13 09:28] LABS: INR 1.04 (0.8-3.0); PROTIME 11.3 SECONDS (9.4-12.5); PTT 27.9 SECONDS (25.1-36.5)
[2024-04-13 09:35] LABS: ALBUMIN 3.9 g/dL (3.5-5.0); ANION GAP 10.5 MEQ/L (5-15); BILIRUBIN,TOTAL 0.6 mg/dL (0.2-1.3); Calcium 9.2 mg/dL (8.4-10.2); Creatinine 1 0.86 mg/dL (0.52-1.04); EST GLOMERULAR FILTRATION RATE 70.9 ML/MIN; MAGNESIUM 1.9 mg/dL (1.6-2.3); Potassium 4.1 mmol/L (3.5-5.1)
[2024-04-13] MEDS ORDERED: OFIRMEV 100 ML IV ONE (09:37)
[2024-04-13 09:39] LABS: INFLUENZA A NEGATIVE (NEGATIVE); INFLUENZA B NEGATIVE (NEGATIVE); RESPIRATORY SYNCTIAL VIRUS NEGATIVE (NEGATIVE); SARS-CoV-2 Xpert Express NEGATIVE (NEGATIVE)
[2024-04-13] MEDS: OFIRMEV 1,000 MG/100 ML ML IV ONE (09:54)
[2024-04-13] MEDS ORDERED: SUBLIMAZE 100 MCG/2 ML ONE (11:18)
[2024-04-13] MEDS: SUBLIMAZE 100 MCG/2 ML IV ONE (11:20)
--- NOTE | 2024-04-13 11:23 | XRAY ---
CLINICAL HISTORY: Shortness of air COMPARISON: None. TECHNIQUE: Contiguous 3.[address] images of the chest were acquired with the administration of intravenous contrast 80 cc isovue was given. Coronal and sagittal reconstructions were obtained. One of the following dose reduction techniques was utilized for this exam: Automated exposure control, adjustment of the mA and/or kV according to patient size, and use of iterative reconstruction FINDINGS: Lungs: Lungs are clear with no consolidation or collapse Bilateral lung lower lobes, right middle lobe, and left upper lobe atelectatic changes. Bilateral lung ground glass nodules largest is at the left lung and measure 6 mm - Lung-RADS III - (axial cuts 20/) for follow-up. The largest one at the right lung measures 3.5 mm - Lung-RADS II - (axial cuts 30/). No pleural effusion Bilateral lung basal pleural thickening. 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 A few mediastinal and hilar lymph nodes largest is calcified and measures 18 x 11 mm seen at the left hilum. Normal appearance of the thymus. Hilar Structures: Normal size and configuration, no enlargement. Heart and Great Vessels: Enlarged heart size. Minimal pericardial effusion. Normal caliber and course of the thoracic aorta and other great vessels. No significant atherosclerosis or aneurysm. Normal enhancement of the great vessels post-contrast. Pulmonary Arteries: No evidence of pulmonary embolism. The dilated pulmonary trunk measures 34mm, suggesting of pulmonary hypertension, clinical correlation is needed. Esophagus: Normal course and caliber. No masses or dilatation. Bones: Thoracic spine spondylodegenerative changes. Mild kyphotic changes. No fractures or lytic/sclerotic lesions. Normal bone density and alignment. No evidence of rib fractures. Chest Wall: No masses or soft tissue abnormalities. Upper Abdomen: Multiple GB stones. Dilated CBD measures 9 mm in caliber for further evaluation by MRCP. Visualized portions of the liver, spleen, pancreas, adrenal glands, and kidneys are normal. Thyroid: Enlarged right thyroid lobe however no definite nodules seen. IMPRESSION: 1. 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 2. Bilateral lung ground glass nodules. 3. Multiple gallbladder stones. Dilated CBD measures 9 mm in caliber for further evaluation by MRCP. 4. The dilated pulmonary trunk measures 34 mm, suggesting of pulmonary hypertension, clinical correlation is needed. Electronically Signed by: Vale Rojas MD. (04/13/2024 11:19:37 EST)
--- NOTE | 2024-04-13 14:59 | PCM.HP ---
History of Present Illness - Chief Complaint Chief Complaint: Shortness of air; Cellulitis of left leg; Cellulitis of right index finger Date: 04/13/24 History of Present Illness: is a 73 year old female with a pmhx of HTN, RA, and stroke who presented to ED 04/13/24 with complaints of right index finger pain/swelling and a non-healing wound to the left heel and ankle. Of note patient was seen in ED on 04/11/24 for swelling and redness to the right index finger which she stated had been present since June of 2023 but edema increased over the past month and she has had a burning sensation there as well. She had been advised by her PCP to try aspercreme which did not help. Patient was prescribed bactrim and prednisone at that time but felt her symptoms were not improving so presented today for re-evaluation. She also reports a non-healing wound to the left heel and ankle that she has been getting out patient wound care for through [facility]. Upon arrival to ED vitals stable. Chest CT with bilateral ground glass nodules, multiple gallstones with dilated CBD, and dilated pulmonary trunk suggesting pulmonary HTN. Lab findings remarkable for macrocytic anemia with hgb at 9.9. Chemistries unremarkable. Respiratory viral panel negative. Patient given clindamycin and dentanyl in ED. Patient admitted for Cellulitis of the right index finger and left lower extremity. Plan for abx. Will have podiatry consulted for LLE cellulitis and non-healing wound. - Review of Systems Constitutional: No Symptoms Eyes: No Symptoms Ears, Nose, & Throat: No Symptoms Respiratory: No Symptoms Cardiac: No Symptoms Abdominal/Gastrointestinal: No Symptoms Genitourinary Symptoms: No Symptoms Musculoskeletal: Joint Redness, Joint Pain, Joint Swelling (right index finger) Skin: Cellulitis (right index finger /left lower ext), Skin Lesions (left heel and ankle) Neurological: Focal Weakness (left side residual weakness s/p stroke) Psychological: No Symptoms Endocrine: No Symptoms Hematologic/Lymphatic: No Symptoms Immunological/Allergic: No Symptoms Medications & Allergies Home Medications: Home Medication List Amlodipine Besylate 5 mg [Norvasc 5 mg] 1 tab PO DAILY 12/27/23 [History Confirmed 04/13/24] Aspirin [Aspirin EC] 81 mg PO DAILY 12/27/23 [History Confirmed 04/13/24] Atorvastatin Calcium 40 mg PO DAILY 12/27/23 [History Confirmed 04/13/24] Clopidogrel Bisulfate [Plavix] 1 tab PO DAILY 12/27/23 [History Confirmed 04/13/24] Docusate Sodium 100 mg [Docusate Sodium 100 MG] 1 tab PO DAILY 12/27/23 [History Confirmed 04/13/24] Gabapentin 300 mg PO HS 12/27/23 [History Confirmed 04/13/24] Lisinopril 20 mg [Zestril 20 MG] 1 tab PO DAILY 12/27/23 [History Confirmed 04/13/24] Metoprolol Succinate 25 mg PO DAILY 12/27/23 [History Confirmed 04/13/24] Ondansetron ODT 4 MG [Zofran Odt 4 mg] 1 tab PO TID PRN PRN 12/27/23 [History Confirmed 04/13/24] Cilostazol 100 mg [Pletal 100 MG] 100 mg PO DAILY 03/20/24 [History Confirmed 04/13/24] Gabapentin [Neurontin] 300 mg PO BID 03/20/24 [History Confirmed 04/13/24] Smz/Tmp Ds Tablet [Bactrim Ds Tablet] 1 udtab PO BID #10 tablet 03/20/24 [Rx Confirmed 04/13/24] Ticagrelor [Brilinta] 90 mg PO BID 03/20/24 [History Confirmed 04/13/24] Tizanidine HCl 2 mg PO DAILY 03/20/24 [History Confirmed 04/13/24] Prednisone 10 mg [Deltasone 10 mg] 10 mg PO TID #12 tablet 04/11/24 [Rx Confirmed 04/13/24] Smz/Tmp Ds Tablet [Bactrim Ds Tablet] 1 udtab PO BID #14 tablet 04/11/24 [Rx Confirmed 04/13/24] Allergies/Adverse Reactions: Allergies Allergy/AdvReac Type Severity Reaction Status Date / Time influenza virus vaccine qs Allergy Verified 12/27/23 01:37 [id number] (36 mos, up) [From Fluarix Quad] Penicillins Allergy Verified 12/27/23 01:37 morphine AdvReac Verified 04/13/24 08:28 - Past Medical History Past Medical History: Yes Neurological History: Stroke ENT History: No Pertinent History Cardiac History: Arrhythmia, Hypertension Respiratory History: No Pertinent History Endocrine Medical History: No Pertinent History Musculoskelatal History: Rheumatoid Arthritis GI Medical History: No Pertinent History History: No Pertinent History Pyscho-Social History: No Pertinent History Reproductive Disorders: Other Comment: urinary incontinence due to not being able to get there quick enough due to stroke, a-fib - Past Surgical History Past Surgical History: Yes Neuro Surgical History: No Pertinent History Cardiac History: No Pertinent History Respiratory Surgery: No Pertinent History GI Surgical History: Appendectomy Genitourinary Surgical Hx: No Pertinent History Musculskeletal Surgical Hx: No Pertinent History Female Surgical History: Hysterectomy, Section Significant Family History: diabetes, hypertension - Social History Smoking Status: Never smoker Exposure to second hand smoke: No Alcohol: None Drug Use: none - Social Determinants of Health Will the patient participate in the screening: Yes Do you worry about a steady place to live?: No In the past 12 months,have you had to go without utilities?: No Have you or anyone in your house had to go without enough: No Transportation Issues: No Has anyone in your support network made you feel unsafe?: No Does the patient want assistance with any of the above?: No - Physical Exam Vital Signs: Vital Signs - 24 hr Temp Pulse Resp BP BP Pulse Ox 04/13/24 12:30 89 14 152/82 94 L 04/13/24 12:00 91 H 14 142/80 95 04/13/24 11:30 92 H 21 155/80 96 04/13/24 11:00 93 H 16 159/104 96 04/13/24 10:30 96 H 26 H 162/89 96 04/13/24 10:25 87 19 153/83 97 04/13/24 09:30 87 16 145/71 97 04/13/24 09:06 83 16 131/78 95 04/13/24 09:03 87 19 131/78 97 04/13/24 09:00 83 20 04/13/24 08:58 81 16 04/13/24 08:41 96 04/13/24 08:08 98.3 F 92 H 16 153/74 95 General Appearance: no apparent distress Neurologic Exam: alert, oriented x 3, cooperative Eye Exam: PERRL/EOMI Ears, Nose, Throat Exam: normal ENT inspection Neck Exam: normal inspection Respiratory Exam: normal breath sounds, lungs clear Cardiovascular Exam: regular rate/rhythm, normal heart sounds Gastrointestinal/Abdomen Exam: soft, normal bowel sounds Pelvic Exam: not done Rectal Exam: deferred Back Exam: normal inspection Extremity Exam: inflammation, swelling (right index finger/ LLE heel/ankle) Skin Exam: other (wound to the left heel and ankle) Results - Labs Lab/Micro Results: Lab Results-Last 24 Hours 04/13/24 04/13/24 04/13/24 Range/Units 08:44 08:52 08:52 WBC (3.98-10.04) x10^3/uL RBC (3.93-5.22) x10^6/uL Hgb (11.2-15.7) g/dL Hct (34.1-44.9) % MCV (79.4-94.8) fL MCH (25.6-32.2) pg MCHC (32.2-35.5) g/dL RDW (11.7-14.4) % Plt Count (182-369) x10^3/uL MPV (9.4-12.3) fL Gran % (34.0-71.1) % Immature Gran % (Auto) (0.001-0.429) % Nucleat RBC Rel Count (0.00-0.2) % Eos # (Auto) (0.04-0.36) x10^3/uL Immature Gran # (Auto) (0.001-0.031) x10^3u/L Absolute Lymphs (auto) (1.18-3.74) x10^3/uL Absolute Monos (auto) (0.24-0.86) x10^3/uL Absolute Nucleated RBC (0.00-0.012) x10^3u/L Lymphocytes % (19.3-51.7) % Monocytes % (4.7-12.5) % Eosinophils % (0.7-5.8) % Basophils % (0.1-1.2) % Absolute Granulocytes (1.56-6.13) x10^3/uL Basophils # (0.01-0.08) x10^3/uL PT (9.4-12.5) SECONDS INR (0.8-3.0) APTT (25.1-36.5) SECONDS pO2/FiO2 Ratio 21.0 % VBG pH 7.49 H (7.32-7.42) VBG pCO2 at Pat Temp 35 L (42-55) mm/Hg VBG pO2 at Pat Temp 45 H (25-40) mm/Hg VBG HCO3 26.7 (22-28) meq/L VBG O2 Sat (Bhargavi) 83.3 L (95-100) VBG Base Excess 3.4 H (-2.0-2.0) VBG Hemoglobin 10.3 VBG Carboxyhemoglobin 6.4 (0.0-6.9) % T HGB POC Potassium 4.2 (3.5-5.1) Sodium (135-145) mmol/L Potassium (3.5-5.1) mmol/L Chloride (98-107) mmol/L Carbon Dioxide (22-30) mmol/L Anion Gap (5-15) MEQ/L BUN (7-17) mg/dL Creatinine (0.52-1.04) mg/dL Estimated GFR ML/MIN Glucose (74-106) mg/dL Lactic Acid 1.0 (0.4-2.0) Calcium (8.4-10.2) mg/dL Magnesium (1.6-2.3) mg/dL Total Bilirubin (0.2-1.3) mg/dL AST (14-36) U/L ALT (0-35) U/L Alkaline Phosphatase (38-126) U/L Troponin I (0.000-0.033) ng/mL NT-Pro-B Natriuret Pep (<300) pg/mL Serum Total Protein (6.3-8.2) g/dL Albumin (3.5-5.0) g/dL Urine Color Yellow (Yellow) Urine Appearance Clear (Clear) Urine pH 7.0 (4.6-8.0) Ur Specific Webster 1.015 (1.005-1.030) Urine Protein Negative (Negative) Urine Glucose (UA) Negative (Negative) mg/dL Urine Ketones Negative (Negative) Urine Blood Negative (Negative) Urine Nitrite Negative (Negative) Urine Bilirubin Negative (Negative) Urine Urobilinogen 0.2 (0.2) mg/dL Ur Leukocyte Esterase Negative (Negative) U Hyaline Cast (Auto) NONE SEEN (0-2) /LPF Urine Microscopic RBC 0-2 (0-5) /HPF Urine Microscopic WBC 0-2 (0-5) /HPF Ur Epithelial Cells Rare (None Seen) /HPF Urine Bacteria None Seen (None Seen) /HPF Urine Culture Reflexed NO (NO) Influenza Type A Ag (NEGATIVE) Influenza Type B Ag (NEGATIVE) RSV (PCR) (NEGATIVE) SARS-CoV-2 (PCR) (NEGATIVE) 04/13/24 04/13/24 04/13/24 Range/Units 08:54 08:54 08:54 WBC 7.4 (3.98-10.04) x10^3/uL RBC 3.22 L (3.93-5.22) x10^6/uL Hgb 9.9 L (11.2-15.7) g/dL Hct 31.8 L (34.1-44.9) % MCV 98.8 H (79.4-94.8) fL MCH 30.7 (25.6-32.2) pg MCHC 31.1 L (32.2-35.5) g/dL RDW 13.2 (11.7-14.4) % Plt Count 380 H (182-369) x10^3/uL MPV 9.2 L (9.4-12.3) fL Gran % 68.5 (34.0-71.1) % Immature Gran % (Auto) 0.3 (0.001-0.429) % Nucleat RBC Rel Count 0.0 (0.00-0.2) % Eos # (Auto) 0.04 (0.04-0.36) x10^3/uL Immature Gran # (Auto) 0.02 (0.001-0.031) x10^3u/L Absolute Lymphs (auto) 1.79 (1.18-3.74) x10^3/uL Absolute Monos (auto) 0.43 (0.24-0.86) x10^3/uL Absolute Nucleated RBC 0.00 (0.00-0.012) x10^3u/L Lymphocytes % 24.2 (19.3-51.7) % Monocytes % 5.8 (4.7-12.5) % Eosinophils % 0.5 L (0.7-5.8) % Basophils % 0.7 (0.1-1.2) % Absolute Granulocytes 5.06 (1.56-6.13) x10^3/uL Basophils # 0.05 (0.01-0.08) x10^3/uL PT 11.3 (9.4-12.5) SECONDS INR 1.04 (0.8-3.0) APTT 27.9 (25.1-36.5) SECONDS pO2/FiO2 Ratio % VBG pH (7.32-7.42) VBG pCO2 at Pat Temp (42-55) mm/Hg VBG pO2 at Pat Temp (25-40) mm/Hg VBG HCO3 (22-28) meq/L VBG O2 Sat (Bhargavi) (95-100) VBG Base Excess (-2.0-2.0) VBG Hemoglobin VBG Carboxyhemoglobin (0.0-6.9) % T HGB POC Potassium (3.5-5.1) Sodium 138 (135-145) mmol/L Potassium 4.1 (3.5-5.1) mmol/L Chloride 107 (98-107) mmol/L Carbon Dioxide 25 (22-30) mmol/L Anion Gap 10.5 (5-15) MEQ/L BUN 20 H (7-17) mg/dL Creatinine 0.86 (0.52-1.04) mg/dL Estimated GFR 70.9 ML/MIN Glucose 105 (74-106) mg/dL Lactic Acid (0.4-2.0) Calcium 9.2 (8.4-10.2) mg/dL Magnesium 1.9 (1.6-2.3) mg/dL Total Bilirubin 0.60 (0.2-1.3) mg/dL AST 23 (14-36) U/L ALT 14 (0-35) U/L Alkaline Phosphatase 74 (38-126) U/L Troponin I (0.000-0.033) ng/mL NT-Pro-B Natriuret Pep 361 (<300) pg/mL Serum Total Protein 7.0 (6.3-8.2) g/dL Albumin 3.9 (3.5-5.0) g/dL Urine Color (Yellow) Urine Appearance (Clear) Urine pH (4.6-8.0) Ur Specific Webster (1.005-1.030) Urine Protein (Negative) Urine Glucose (UA) (Negative) mg/dL Urine Ketones (Negative) Urine Blood (Negative) Urine Nitrite (Negative) Urine Bilirubin (Negative) Urine Urobilinogen (0.2) mg/dL Ur Leukocyte Esterase (Negative) U Hyaline Cast (Auto) (0-2) /LPF Urine Microscopic RBC (0-5) /HPF Urine Microscopic WBC (0-5) /HPF Ur Epithelial Cells (None Seen) /HPF Urine Bacteria (None Seen) /HPF Urine Culture Reflexed (NO) Influenza Type A Ag (NEGATIVE) Influenza Type B Ag (NEGATIVE) RSV (PCR) (NEGATIVE) SARS-CoV-2 (PCR) (NEGATIVE) 04/13/24 04/13/24 04/13/24 Range/Units 08:54 08:54 12:30 WBC (3.98-10.04) x10^3/uL RBC (3.93-5.22) x10^6/uL Hgb (11.2-15.7) g/dL Hct (34.1-44.9) % MCV (79.4-94.8) fL MCH (25.6-32.2) pg MCHC (32.2-35.5) g/dL RDW (11.7-14.4) % Plt Count (182-369) x10^3/uL MPV (9.4-12.3) fL Gran % (34.0-71.1) % Immature Gran % (Auto) (0.001-0.429) % Nucleat RBC Rel Count (0.00-0.2) % Eos # (Auto) (0.04-0.36) x10^3/uL Immature Gran # (Auto) (0.001-0.031) x10^3u/L Absolute Lymphs (auto) (1.18-3.74) x10^3/uL Absolute Monos (auto) (0.24-0.86) x10^3/uL Absolute Nucleated RBC (0.00-0.012) x10^3u/L Lymphocytes % (19.3-51.7) % Monocytes % (4.7-12.5) % Eosinophils % (0.7-5.8) % Basophils % (0.1-1.2) % Absolute Granulocytes (1.56-6.13) x10^3/uL Basophils # (0.01-0.08) x10^3/uL PT (9.4-12.5) SECONDS INR (0.8-3.0) APTT (25.1-36.5) SECONDS pO2/FiO2 Ratio % VBG pH (7.32-7.42) VBG pCO2 at Pat Temp (42-55) mm/Hg VBG pO2 at Pat Temp (25-40) mm/Hg VBG HCO3 (22-28) meq/L VBG O2 Sat (Bhargavi) (95-100) VBG Base Excess (-2.0-2.0) VBG Hemoglobin VBG Carboxyhemoglobin (0.0-6.9) % T HGB POC Potassium (3.5-5.1) Sodium (135-145) mmol/L Potassium (3.5-5.1) mmol/L Chloride (98-107) mmol/L Carbon Dioxide (22-30) mmol/L Anion Gap (5-15) MEQ/L BUN (7-17) mg/dL Creatinine (0.52-1.04) mg/dL Estimated GFR ML/MIN Glucose (74-106) mg/dL Lactic Acid (0.4-2.0) Calcium (8.4-10.2) mg/dL Magnesium (1.6-2.3) mg/dL Total Bilirubin (0.2-1.3) mg/dL AST (14-36) U/L ALT (0-35) U/L Alkaline Phosphatase (38-126) U/L Troponin I < 0.012 < 0.012 (0.000-0.033) ng/mL NT-Pro-B Natriuret Pep (<300) pg/mL Serum Total Protein (6.3-8.2) g/dL Albumin (3.5-5.0) g/dL Urine Color (Yellow) Urine Appearance (Clear) Urine pH (4.6-8.0) Ur Specific Webster (1.005-1.030) Urine Protein (Negative) Urine Glucose (UA) (Negative) mg/dL Urine Ketones (Negative) Urine Blood (Negative) Urine Nitrite (Negative) Urine Bilirubin (Negative) Urine Urobilinogen (0.2) mg/dL Ur Leukocyte Esterase (Negative) U Hyaline Cast (Auto) (0-2) /LPF Urine Microscopic RBC (0-5) /HPF Urine Microscopic WBC (0-5) /HPF Ur Epithelial Cells (None Seen) /HPF Urine Bacteria (None Seen) /HPF Urine Culture Reflexed (NO) Influenza Type A Ag NEGATIVE (NEGATIVE) Influenza Type B Ag NEGATIVE (NEGATIVE) RSV (PCR) NEGATIVE (NEGATIVE) SARS-CoV-2 (PCR) NEGATIVE (NEGATIVE) - Radiology Impressions Radiology Exams & Impressions: Radiology Procedures Category Date Time Status CHEST WITH CONTRAST [CT] Stat Exams 04/13/24 08:21 Completed VENOUS UNILAT/LIMITED EXTREMIT [US] Stat Exams 04/13/24 08:25 Taken - Other Procedures and Tests Respiratory Therapy 04/13/24 14:38 EKG REPEAT IN AM Assessment/Plan (1) Cellulitis of left lower extremity Current Visit: Yes Status: Acute Assessment & Plan: -Xray left foot and ankle -Clindamycin started in ED will continue -Podiatry consult -Patient receives wound care OP with Cathy Boyce at [facility] -Culture drainage -vanessa borders -elevated affected limb Code(s): L03.116 - CELLULITIS OF LEFT LOWER LIMB (2) Wound of left ankle Current Visit: Yes Status: Acute Assessment & Plan: -see cellulitis Code(s): S91.002A - UNSPECIFIED OPEN WOUND, LEFT ANKLE, INITIAL ENCOUNTER (3) Open wound of left heel Current Visit: Yes Status: Acute Assessment & Plan: -see wound left ankle Code(s): S91.302A - UNSPECIFIED OPEN WOUND, LEFT FOOT, INITIAL ENCOUNTER (4) Cellulitis of right index finger Current Visit: Yes Status: Acute Assessment & Plan: -xray right hand -Clindamycin started in ED - will continue -Prednisone started- will continue -pain control -culture any drainage -vanessa borders -elevate affected limb -crp, esr Code(s): L03.011 - CELLULITIS OF RIGHT FINGER (5) HTN (hypertension) Current Visit: Yes Status: Acute Assessment & Plan: -stable continue home meds Code(s): I10 - ESSENTIAL (PRIMARY) HYPERTENSION (6) Rheumatoid arthritis Current Visit: Yes Status: Acute Assessment & Plan: -noted -VTE: lovenox -Dispo: ? tomorrow -Code: full code Code(s): M06.9 - RHEUMATOID ARTHRITIS, UNSPECIFIED Telemedicine Encounter - Telemedicine Encounter Telemedicine Encounter: "The entirety of this encounter was performed via Telemedicine" This visit was performed using real-time audio and video connection between my location and thepatients locationwith the assistance of a surrogateat the patients location. Written or verbal consent was obtained from the patient/guardian to perform this visit [facility]. Any patient questions regarding the telemedicine interaction were answered.
[2024-04-13] MEDS ORDERED: Zofran 4 MG/2 ML VIAL IV PRN (15:39)
[2024-04-13] MEDS ORDERED: Docusate Sodium 100 MG PO PRN (16:48)
[2024-04-13] MEDS: Sodium Chloride 0.9% 1000 ML 1,000 ML IV SCH (17:10)
[2024-04-13] MEDS: CLINDAMYCIN-D5W 600 MG/50 ML*** 600 MG/50 ML BAG IV SCH (17:10)
--- NOTE | 2024-04-13 18:55 | XRAY ---
Indication: Left leg "burning." DVT. Two-dimensional sonogram and color Doppler imaging major venous vessels left leg performed. Comparison: None No thrombus seen in the examined deep venous vessels left leg including greater saphenous vein. Veins demonstrate normal compressibility. Venous waveforms are normal with and without augmentation. Impression: Left leg negative for DVT. Comment: Preliminary report was given.
[2024-04-13] MEDS ORDERED: ZOCOR 20MG ONE (21:24)
[2024-04-13] MEDS: Neurontin PO SCH (21:51)
[2024-04-13] MEDS: NEURONTIN PO SCH (21:51)
[2024-04-13] MEDS: Zestril 20 MG PO SCH (21:51)
[2024-04-13] MEDS: Pletal 100 MG PO SCH (21:52)
[2024-04-13] MEDS: ZOCOR 20MG PO SCH (21:52)
[2024-04-13] MEDS ORDERED: LIPITOR 40MG PO SCH (22:00)
[2024-04-14 05:10] LABS: Absolute Neutrophil Ct (ANC) 3.28 x10^3/uL (1.56-6.13); BASOPHIL % 1.2 % (0.1-1.2); Basophil (Absolute #) 0.07 x10^3/uL (0.01-0.08); Eosinophil % 4.3 % (0.7-5.8); Eosinophil (Absolute #) 0.26 x10^3/uL (0.04-0.36); Hemoglobin 10.2 g/dL (11.2-15.7); IMMATURE GRAN # 0.02 x10^3u/L (0.001-0.031); IMMATURE GRAN % 0.3 % (0.001-0.429); Lymphocytes % 31.4 % (19.3-51.7); Mean Cell Volume 99.1 fL (79.4-94.8); Mean Corpuscular Hemoglobin 30.6 pg (25.6-32.2); Mean Corpuscular Hgb Concent. 30.9 g/dL (32.2-35.5); Mean Platelet Volume 9.4 fL (9.4-12.3); Monocyte (Absolute #) 0.52 x10^3/uL (0.24-0.86); Monocytes % 8.6 % (4.7-12.5); Neutrophil % 54.2 % (34.0-71.1); Platelet Count 404 x10^3/uL (182-369); Red Blood Count 3.33 x10^6/uL (3.93-5.22); Red Cell Distribution Width 13.5 % (11.7-14.4); White Blood Count 6.1 x10^3/uL (3.98-10.04)
[2024-04-14 05:49] LABS: ALBUMIN 3.4 g/dL (3.5-5.0); BILIRUBIN,TOTAL 0.6 mg/dL (0.2-1.3); Calcium 9.2 mg/dL (8.4-10.2); Creatinine 1 0.87 mg/dL (0.52-1.04); EST GLOMERULAR FILTRATION RATE 69.9 ML/MIN; MAGNESIUM 1.8 mg/dL (1.6-2.3); Potassium 4.4 mmol/L (3.5-5.1); Total Protein 6.1 g/dL (6.3-8.2)
[2024-04-14] MEDS: TYLENOL 325 MG PO PRN (06:21)
[2024-04-14] MEDS: Neurontin PO SCH (08:17)
[2024-04-14] MEDS: DELTASONE 20 MG PO SCH (09:44)
[2024-04-14] MEDS: VITAMIN D PO SCH (09:44)
[2024-04-14] MEDS: Toprol-Xl 25MG Tablets PO SCH (09:44)
[2024-04-14] MEDS: PLAVIX Tablet PO SCH (09:44)
[2024-04-14] MEDS: ENOXAPARIN SODIUM SQ SCH (09:48)
--- NOTE | 2024-04-14 12:09 | PCM.NOTE ---
Date and Time: 04/14/24 1158 Subjective Assessment: is a 73 year old female with a history of old CVA (on Plavix and ASA 81 mg) and atrial fibrillation. She presented on 04/13/24 with c/o new onset 4 hours prior to admission shortness of breath, and intermittent burning/tingling in her left leg with episodes lasting up to 1 hour and intensity of 8/10. Pt denies any recent trauma. Pt states she has had an ulcer on her left lower leg for the past 10 months after a stroke with left sided weakness and has had a dressing change twice weekly during this period. Pt also states her right index finger became red, swollen and hot 2 days ago, came to [facility] ER and was placed on bactrim & prednisone w/o improvement. She follows the wound care center at [facility] and also has [facility] with Cathy Boyce RN for wound care. She was started on clindamycin IV for cellulitis and podiatry consulted. Venous duplex of LLE negative for DVT. Chest CT completed in ER and showed pulm HTN- an echo was ordered. IV fluids stopped. BC x2, wound culture, and UC all pending. CT chest showed: The stomach is seen herniated and located at the posterior aspect of the left side of the chest with rotation of the stomach along its long axis, suggestive of a sliding hiatus hernia associated with a rolling hiatus hernia. Bilateral lung ground glass nodules. Multiple gallbladder stones. Dilated CBD measures 9 mm in caliber for further evaluation by MRCP. The dilated pulmonary trunk measures 34 mm, suggesting of pulmonary hypertension, clinical correlation is needed. GB US ordered for further eval of dilated CBD- will consider MRCP. Pt denies any abd pain N/V until abd. palpated. Consider surgery consult. She denies any further concerns at this time. - Review of Systems Constitutional: No Fever, No Chills Eyes: No Symptoms Ears, Nose, & Throat: No Symptoms Respiratory: No Cough, No Short Of Breath Cardiac: No Chest Pain, No Edema, No Syncope Abdominal/Gastrointestinal: Abdominal Pain (with palpation), No Nausea, No Vomiting, No Diarrhea Genitourinary Symptoms: No Dysuria Musculoskeletal: No Back Pain, No Neck Pain Skin: Cellulitis, No Rash Neurological: No Dizziness, No Focal Weakness, No Sensory Changes Psychological: No Symptoms Endocrine: No Symptoms Hematologic/Lymphatic: No Symptoms Immunological/Allergic: No Symptoms Objective Exam General Appearance: no apparent distress, alert, obese Neurologic Exam: alert, oriented x 3, cooperative, normal mood/affect, nml cerebellar function, sensation nml, No motor deficits Skin Exam: normal color, warm, dry, other (cellulitis) Wound Assessment: Skin/Wound Assessment Wound/Incision Assessment Start: 04/13/24 20:00 Text: Status: Active Freq: Q6H Protocol: Document 04/14/24 08:00 AR (Rec: 04/14/24 08:59 AR [id number]) Wound/Incision Assessment Left Lower Anterior Leg-proximal Wound Assessment Shift Assessment Wound Type Ulceration Wound Stage Unstageable Dressing Status Dry & Intact Length (cm) (cm) 2 Width (cm) (cm) 1 Wound Bed Greatest Portion Black (Eschar) Surrounding Tissue [place] Secondary Dressing Gauze Roll/Wrap Comment dressing applied in ER- dressing is still intact and dry. Left Lower Anterior Leg-medial Wound Assessment Shift Assessment Wound Type Ulceration Wound Stage Unstageable Dressing Status Dry & Intact Length (cm) (cm) 2.1 Width (cm) (cm) 2 Wound Bed Greatest Portion Black (Eschar) Wound Bed Lesser Portion Red (Granulation) Surrounding Tissue [place] Secondary Dressing Gauze Roll/Wrap Comment dressing applied in ER- dressing is still intact and clean. Left Lower Anterior Leg-distal Wound Assessment Shift Assessment Wound Type Ulceration Wound Stage Stage II Dressing Status Dry & Intact Drainage Amount None Wound Bed Greatest Portion Dusky Red Surrounding Tissue [place] Secondary Dressing Gauze Roll/Wrap Comment dressing applied in ER- dressing intact and clean Left Lower Posterior Leg Wound Assessment Shift Assessment Wound Type ulceration Wound Stage Stage II Dressing Status Dry & Intact Drainage Amount None Length (cm) (cm) 2 Width (cm) (cm) 1 Wound Bed Greatest Portion Red (Granulation) Surrounding Tissue [place] Secondary Dressing Gauze Roll/Wrap Comment dressing applied in ER- dressing is intact and clean Right hand, 2nd finger Wound Assessment Shift Assessment Wound Type scab and peeling skin Wound Stage Non Pressure Wound Drainage Amount None General Appearance Open to air Surrounding Tissue Bright Red Comment peeling skin & scabbed area; pt states from a burn several weeks ago, warm to touch & swollen - remains true Right Buttock Wound Assessment Shift Assessment Wound Type Pressure Ulcer Wound Stage Stage II Drainage Amount None General Appearance Open to air Length (cm) (cm) 2 Width (cm) (cm) 1 Surrounding Tissue [place] Topical Solution/Irrigant Medicated Ointment Wound Photo Photo Taken No Eye Exam: PERRL, EOMI, eyes nml inspection Ears, Nose, Throat Exam: normal ENT inspection, pharynx normal, moist mucous membranes Neck Exam: normal inspection, non-tender, supple, full range of motion Respiratory Exam: normal breath sounds, lungs clear, No respiratory distress Cardiovascular Exam: regular rate/rhythm, normal heart sounds Gastrointestinal/Abdomen Exam: soft, tenderness (RUQ, RLQ with palpation), No mass Extremity Exam: normal inspection, normal range of motion Back Exam: normal inspection, normal range of motion, No CVA tenderness, No vertebral tenderness Pelvic Exam: deferred Rectal Exam: deferred Objective Data Vital Signs: Vital Signs - 24 hr Temp Pulse Resp BP BP Pulse Ox 04/14/24 08:00 97.1 F 92 H 18 124/57 96 04/14/24 04:00 97.0 F 93 H 20 116/63 93 L 04/13/24 23:36 97.1 F 82 20 103/51 91 L 04/13/24 19:49 97.1 F 109 H 22 120/54 95 04/13/24 14:56 97.6 F 86 17 138/69 93 L 04/13/24 14:38 95 04/13/24 12:30 89 14 152/82 94 L 04/13/24 12:00 91 H 14 142/80 95 Pain Assessment - Last Documented Pain Intensity 0 Pain Scale Used 0-10 Pain Scale Intake and Output: Intake & Output 04/11/24 04/12/24 04/13/24 04/14/24 11:59 11:59 11:59 11:59 Intake Total 580 Output Total 900 Balance -320 Weight 80.1 kg 77.1 kg Lab Results: Lab Results-Last 24 Hours 04/13/24 04/13/24 04/13/24 Range/Units 12:30 13:20 13:20 WBC (3.98-10.04) x10^3/uL RBC (3.93-5.22) x10^6/uL Hgb (11.2-15.7) g/dL Hct (34.1-44.9) % MCV (79.4-94.8) fL MCH (25.6-32.2) pg MCHC (32.2-35.5) g/dL RDW (11.7-14.4) % Plt Count (182-369) x10^3/uL MPV (9.4-12.3) fL Gran % (34.0-71.1) % Immature Gran % (Auto) (0.001-0.429) % Nucleat RBC Rel Count (0.00-0.2) % Eos # (Auto) (0.04-0.36) x10^3/uL Immature Gran # (Auto) (0.001-0.031) x10^3u/L Absolute Lymphs (auto) (1.18-3.74) x10^3/uL Absolute Monos (auto) (0.24-0.86) x10^3/uL Absolute Nucleated RBC (0.00-0.012) x10^3u/L Lymphocytes % (19.3-51.7) % Monocytes % (4.7-12.5) % Eosinophils % (0.7-5.8) % Basophils % (0.1-1.2) % Absolute Granulocytes (1.56-6.13) x10^3/uL Basophils # (0.01-0.08) x10^3/uL ESR 26 H (0-20) mm/hr Sodium (135-145) mmol/L Potassium (3.5-5.1) mmol/L Chloride (98-107) mmol/L Carbon Dioxide (22-30) mmol/L Anion Gap (5-15) MEQ/L BUN (7-17) mg/dL Creatinine (0.52-1.04) mg/dL Estimated GFR ML/MIN Glucose (74-106) mg/dL Calcium (8.4-10.2) mg/dL Magnesium (1.6-2.3) mg/dL Total Bilirubin (0.2-1.3) mg/dL AST (14-36) U/L ALT (0-35) U/L Alkaline Phosphatase (38-126) U/L Troponin I < 0.012 < 0.012 (0.000-0.033) ng/mL Serum Total Protein (6.3-8.2) g/dL Albumin (3.5-5.0) g/dL 04/14/24 04/14/24 04/14/24 Range/Units 04:55 04:55 04:55 WBC 6.1 (3.98-10.04) x10^3/uL RBC 3.33 L (3.93-5.22) x10^6/uL Hgb 10.2 L (11.2-15.7) g/dL Hct 33.0 L (34.1-44.9) % MCV 99.1 H (79.4-94.8) fL MCH 30.6 (25.6-32.2) pg MCHC 30.9 L (32.2-35.5) g/dL RDW 13.5 (11.7-14.4) % Plt Count 404 H (182-369) x10^3/uL MPV 9.4 (9.4-12.3) fL Gran % 54.2 (34.0-71.1) % Immature Gran % (Auto) 0.3 (0.001-0.429) % Nucleat RBC Rel Count 0.0 (0.00-0.2) % Eos # (Auto) 0.26 (0.04-0.36) x10^3/uL Immature Gran # (Auto) 0.02 (0.001-0.031) x10^3u/L Absolute Lymphs (auto) 1.90 (1.18-3.74) x10^3/uL Absolute Monos (auto) 0.52 (0.24-0.86) x10^3/uL Absolute Nucleated RBC 0.00 (0.00-0.012) x10^3u/L Lymphocytes % 31.4 (19.3-51.7) % Monocytes % 8.6 (4.7-12.5) % Eosinophils % 4.3 (0.7-5.8) % Basophils % 1.2 (0.1-1.2) % Absolute Granulocytes 3.28 (1.56-6.13) x10^3/uL Basophils # 0.07 (0.01-0.08) x10^3/uL ESR (0-20) mm/hr Sodium 138 (135-145) mmol/L Potassium 4.4 (3.5-5.1) mmol/L Chloride 107 (98-107) mmol/L Carbon Dioxide 24 (22-30) mmol/L Anion Gap 11.0 (5-15) MEQ/L BUN 18 H (7-17) mg/dL Creatinine 0.87 (0.52-1.04) mg/dL Estimated GFR 69.9 ML/MIN Glucose 102 (74-106) mg/dL Calcium 9.2 (8.4-10.2) mg/dL Magnesium 1.8 (1.6-2.3) mg/dL Total Bilirubin 0.60 (0.2-1.3) mg/dL AST 20 (14-36) U/L ALT 13 (0-35) U/L Alkaline Phosphatase 66 (38-126) U/L Troponin I < 0.012 (0.000-0.033) ng/mL Serum Total Protein 6.1 L (6.3-8.2) g/dL Albumin 3.4 L (3.5-5.0) g/dL Radiology Exams: Radiology Procedures Category Date Time Status ANKLE (2V) Routine Exams 04/13/24 15:47 Taken CHEST WITH CONTRAST [CT] Stat Exams 04/13/24 08:21 Completed ECHO W/2D AND DOPPLER [US] Routine Exams 04/14/24 08:02 Taken FOOT (2 VIEWS) Routine Exams 04/13/24 15:47 Taken GALLBLADDER [US] Routine Exams 04/14/24 07:00 Taken HAND (MINIMUM 3 VIEWS) Routine Exams 04/13/24 15:48 Taken VENOUS UNILAT/LIMITED EXTREMIT [US] Stat Exams 04/13/24 08:25 Completed Assessment/Plan (1) Cellulitis of left lower extremity Current Visit: Yes Status: Acute Assessment & Plan: - Clindamycin IV - probiotocs - Venous duplex LLE negative for DVT - CBC reviewed -Xray left foot and ankle -Podiatry consult -Patient receives wound care OP with Cathy Boyce at [facility] -Culture drainage -vanessa borders -elevated affected limb - BC x2 pending Code(s): L03.116 - CELLULITIS OF LEFT LOWER LIMB (2) Cellulitis of right index finger Current Visit: Yes Status: Acute Assessment & Plan: -xray right hand -Clindamycin IV -Prednisone started- will continue -pain control -culture any drainage -vanessa borders -elevate affected limb -crp, esr Code(s): L03.011 - CELLULITIS OF RIGHT FINGER (3) Gallstones Current Visit: Yes Status: Acute Assessment & Plan: - Chest CT: IMPRESSION: 1. 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 2. Bilateral lung ground glass nodules. 3. Multiple gallbladder stones. Dilated CBD measures 9 mm in caliber for further evaluation by MRCP. 4. The dilated pulmonary trunk measures 34 mm, suggesting of pulmonary hypertension, clinical correlation is needed. - US pending - consider ERCP - consider GS consult - CBC reviewed Code(s): K80.20 - CALCULUS OF GALLBLADDER W/O CHOLECYSTITIS W/O OBSTRUCTION (4) Pulmonary HTN Current Visit: Yes Status: Acute Assessment & Plan: - As seen on chest CT - Echo pending - RA 93% - Follows Dr. Plasencia Code(s): I27.20 - PULMONARY HYPERTENSION, UNSPECIFIED (5) HTN (hypertension) Current Visit: Yes Status: Chronic Assessment & Plan: -stable continue home meds Code(s): I10 - ESSENTIAL (PRIMARY) HYPERTENSION (6) Rheumatoid arthritis Current Visit: Yes Status: Chronic Assessment & Plan: -noted Code(s): M06.9 - RHEUMATOID ARTHRITIS, UNSPECIFIED (7) Wound of left ankle Current Visit: Yes Status: Chronic Assessment & Plan: -see cellulitis Code(s): S91.002A - UNSPECIFIED OPEN WOUND, LEFT ANKLE, INITIAL ENCOUNTER (8) Open wound of left heel Current Visit: Yes Status: Chronic Assessment & Plan: -see wound left ankle Code(s): S91.302A - UNSPECIFIED OPEN WOUND, LEFT FOOT, INITIAL ENCOUNTER (9) Obesity (BMI 30.0-34.9) Current Visit: Yes Status: Chronic Assessment & Plan: - advised diet ad exercise control VTE: Lovenox PPI: Protonix Dispo: 1-2 days Code: full code Next of KIN: daughter Code(s): E66.811 - OBESITY, CLASS 1
--- NOTE | 2024-04-14 12:14 | XRAY ---
Indication: Gallstones and dilated common bile duct on CT. Two-dimensional gallbladder sonogram performed. Comparison: None Pancreas not well-seen due to overlying bowel gas. Visualized gallbladder is moderately distended with multiple tiny gallstones/gravel in the dependent portion. No abnormal gallbladder wall thickening or pericholecystic fluid. Common bile duct measures 5.8 mm. No intrahepatic biliary distention. Remaining visualized liver and right kidney are sonographic unremarkable. Right kidney measures 10.3 x 4.2 x 4.4 cm. Impression: Nonvisualization pancreas. Cholelithiasis without cholecystitis or biliary distention.
--- NOTE | 2024-04-14 12:16 | XRAY ---
CLINICAL HISTORY: ulcer COMPARISON: No prior studies are available for comparison. TECHNIQUE: X-ray images of the left ankle were obtained in anteroposterior (AP), and lateral projections. FINDINGS: Bone Structure: Reduced bone density. Multiple lucent areas are visualized in the ankle bones, in particular in the talus, navicular, and calcaneum. No loose debris or fragmentation is seen. The bone structure is aligned. Lucent line is noted in the apex of the medial malleolus, could be projectional, the possibility of undisplaced fracture cannot be entirely excluded, would recommend clinical correlation for focal tenderness in this region and CT scan/MRI for further evaluation. Otherwise, no evidence of fracture or dislocation. Joint Spaces: Joint spaces are normal. No evidence of joint effusion or subluxation. Soft Tissues: Marked soft tissue swelling is evident along both sides of the ankle joint with soft tissue edema and haziness. IMPRESSION: 1. Osteopenic changes with multiple patchy lucent areas in the ankle bones, in particular in the talus, navicular, and calcaneum. 2. Marked soft tissue swelling is evident along both sides of the ankle joint with soft tissue edema and haziness. 3. Imaging appearances are concerning for osteomyelitis. Further evaluation with MRI is suggested. 4. Lucent line is noted in the apex of the medial malleolus, could be projectional, possibility of undisplaced fracture cannot be entirely excluded, would recommend clinical correlation for focal tenderness in this region and CT scan/MRI for further evaluation. Electronically Signed by: Vale Rojas MD. (04/14/2024 12:11:29 EST)
--- NOTE | 2024-04-14 12:24 | XRAY ---
CLINICAL HISTORY: right index finger/hand cellulitis COMPARISON: No prior studies are available for comparison. TECHNIQUE: X-ray images of the right hand were obtained in anteroposterior (AP), lateral, and oblique projections. FINDINGS: Bone Structure: There is prominent bone destruction involving the distal phalanx of the right index finger with near-complete resorption of the tuft and shaft. The rest of the bone structure is aligned. There is no evidence of fracture. Joint Spaces: Osteoarthritic changes with reduced joint spaces along the first and second metacarpophalangeal joints, and proximal interphalangeal joints. Reduced radiocarpal joint space with sclerosis of the distal radius and calcifications along the radiocarpal and ulnocarpal joints. Soft Tissues: Marked surrounding soft tissue swelling along the index finger and thumb. IMPRESSION: 1. Prominent bone destruction involving the distal phalanx of the right index finger with near-complete resorption of the tuft and shaft. Marked surrounding soft tissue swelling along the index finger and thumb. The imaging appearances are concerning for osteomyelitis. Further evaluation with MRI can be considered if clinically indicated. 2. Mild osteoarthritic changes with reduced joint spaces along the first and second metacarpophalangeal joints, and proximal interphalangeal joints. 3. Reduced radiocarpal joint space with sclerosis of the distal radius and calcifications in the radiocarpal/ulnocarpal joints. DISCLAIMER:A subtle bone abnormality or fracture may not be readily apparent on x-rays, thus clinical correlation and further imaging including follow up CT, MRI, or follow up x-rays are advised as needed. Electronically Signed by: Vale Rojas MD. (04/14/2024 12:20:35 EST)
--- NOTE | 2024-04-14 12:26 | XRAY ---
CLINICAL HISTORY: left foot wound cellulitis COMPARISON: No prior studies are available for comparison. TECHNIQUE: X-ray images of the left foot were obtained in anteroposterior (AP), lateral, and oblique projections. FINDINGS: Bone Structure: Diffuse osteopenic changes are seen in the left foot bones. Multifocal lytic areas are visible in the talus, calcaneum and navicular bone. Cortical erosions along the metatarsal heads of 2nd-5th fingers along with soft tissue haziness. The bone structure is aligned. No evidence of fracture or dislocation. Joint Spaces: Joint spaces are normal. No evidence of joint effusion or subluxation. Soft Tissues: Diffuse surrounding soft tissue thickening is seen, around the ankle and lateral aspect of the foot. IMPRESSION: 1. Diffuse osteopenic changes are seen in the left foot bones. 2. Multifocal lytic areas are visible in the talus, calcaneum and navicular bone. 3. Cortical erosions along the lateral aspects of metatarsal heads of 2nd-5th fingers along with soft tissue haziness. 4. Diffuse surrounding soft tissue thickening is seen around the ankle and lateral aspect of the foot. 5. Imaging appearances are concerning for osteomyelitis. Further evaluation with MRI can be considered if clinically indicated. DISCLAIMER:A subtle bone abnormality or fracture may not be readily apparent on x-rays, thus clinical correlation and further imaging including follow up CT, MRI, or follow up x-rays are advised as needed. Electronically Signed by: Vale Rojas MD. (04/14/2024 12:21:54 EST)
[2024-04-14] MEDS: ECOTRIN 81 MG PO SCH (12:28)
[2024-04-14] MEDS: NORVASC 5 MG PO SCH (12:28)
[2024-04-14] MEDS: Acidophilus TABLET PO SCH (13:04)
--- NOTE | 2024-04-14 16:40 | PCM.CONS ---
Podiatry HPI - Consult Date of Consultation Date: 04/14/24 Reason for Consult: left lower extremity wound. Consulting Provider: JATIN PATRICK DPM - [facility] History of Present Illness: Pt states for the past 4 hours she has had shortness of air and intermittent burning/tingling in her left leg with episodes lasting up to 1 hour and intensity of 8/10. Pt denies any recent trauma. Pt states she has had an ulcer on her left lower leg for the past 10 months after a stroke with left sided weakness and has had a dressing change twice weekly during this period. Pt also states her right index finger became red, swollen and hot 2 days ago, came to [facility] ER and was placed on bactrim & prednisone. Pt denies chest pain, cough, abdominal pain, fever. Medications & Allergies Home Medications: Home Medication List Amlodipine Besylate 5 mg [Norvasc 5 mg] 5 mg PO LUNCH 12/27/23 [History Confirmed 04/13/24] Aspirin [Aspirin EC] 81 mg PO LUNCH 12/27/23 [History Confirmed 04/13/24] Atorvastatin Calcium 40 mg PO HS 12/27/23 [History Confirmed 04/13/24] Clopidogrel Bisulfate [Plavix] 75 mg PO QAM 12/27/23 [History Confirmed 04/13/24] Docusate Sodium 100 mg [Docusate Sodium 100 MG] 1 cap PO DAILY PRN PRN 12/27/23 [History Confirmed 04/13/24] Gabapentin 300 mg PO HS 12/27/23 [History Confirmed 04/13/24] Lisinopril 20 mg [Zestril 20 MG] 20 mg PO HS 12/27/23 [History Confirmed 04/13/24] Metoprolol Succinate 25 mg PO QAM 12/27/23 [History Confirmed 04/13/24] Ondansetron ODT 4 MG [Zofran Odt 4 mg] 4 mg PO Q8HPRN PRN 12/27/23 [History Confirmed 04/13/24] Cilostazol 100 mg [Pletal 100 MG] 100 mg PO BID 03/20/24 [History Confirmed 04/13/24] Tizanidine HCl 2 mg PO Q8HPRN PRN 03/20/24 [History Confirmed 04/13/24] Prednisone 10 mg [Deltasone 10 mg] 10 mg PO TID #12 tablet 04/11/24 [Rx Confirmed 04/13/24] Cholecalciferol (Vitamin D3) [Vitamin D3] 25 mcg PO QAM 04/13/24 [History Confirmed 04/13/24] Gabapentin [Neurontin ] 100 mg PO BID 04/13/24 [History Confirmed 04/13/24] Pantoprazole 20 mg [Protonix 20MG Tablet] 20 mg PO DAILY PRN PRN 04/13/24 [History Confirmed 04/13/24] Smz/Tmp Ds Tablet [Bactrim Ds Tablet] 1 tab PO Q12H 04/13/24 [History Confirmed 04/13/24] Allergies/Adverse Reactions: Allergies Allergy/AdvReac Type Severity Reaction Status Date / Time influenza virus vaccine qs Allergy Verified 12/27/23 01:37 [id number] (36 mos, up) [From Fluarix Quad] Penicillins Allergy Verified 12/27/23 01:37 morphine AdvReac Verified 04/13/24 08:28 - Past Medical History Past Medical History: Yes Neurological History: Stroke ENT History: No Pertinent History Cardiac History: Arrhythmia, Hypertension Respiratory History: No Pertinent History Endocrine Medical History: No Pertinent History Musculoskelatal History: Rheumatoid Arthritis GI Medical History: No Pertinent History History: No Pertinent History Pyscho-Social History: No Pertinent History Reproductive Disorders: Other Comment: urinary incontinence due to not being able to get there quick enough due to stroke, a-fib - Past Surgical History Past Surgical History: Yes Neuro Surgical History: No Pertinent History Cardiac History: No Pertinent History Respiratory Surgery: No Pertinent History GI Surgical History: Appendectomy Genitourinary Surgical Hx: No Pertinent History Musculskeletal Surgical Hx: No Pertinent History Female Surgical History: Hysterectomy, Section Significant Family History: diabetes, hypertension - Social History Smoking Status: Never smoker Exposure to second hand smoke: No Alcohol: None Drug Use: none - Social Determinants of Health Will the patient participate in the screening: Declined to provide Do you worry about a steady place to live?: No In the past 12 months,have you had to go without utilities?: No Have you or anyone in your house had to go without enough: No Transportation Issues: No Has anyone in your support network made you feel unsafe?: No Does the patient want assistance with any of the above?: No Physical Exam - Narrative Narrative Physical Exam: Podiatry Physical Exam Results - Labs Lab/Micro Results: Lab Results-Last 24 Hours 04/13/24 04/13/24 04/14/24 Range/Units 08:54 13:20 04:55 WBC 6.1 (3.98-10.04) x10^3/uL RBC 3.33 L (3.93-5.22) x10^6/uL Hgb 10.2 L (11.2-15.7) g/dL Hct 33.0 L (34.1-44.9) % MCV 99.1 H (79.4-94.8) fL MCH 30.6 (25.6-32.2) pg MCHC 30.9 L (32.2-35.5) g/dL RDW 13.5 (11.7-14.4) % Plt Count 404 H (182-369) x10^3/uL MPV 9.4 (9.4-12.3) fL Gran % 54.2 (34.0-71.1) % Immature Gran % (Auto) 0.3 (0.001-0.429) % Nucleat RBC Rel Count 0.0 (0.00-0.2) % Eos # (Auto) 0.26 (0.04-0.36) x10^3/uL Immature Gran # (Auto) 0.02 (0.001-0.031) x10^3u/L Absolute Lymphs (auto) 1.90 (1.18-3.74) x10^3/uL Absolute Monos (auto) 0.52 (0.24-0.86) x10^3/uL Absolute Nucleated RBC 0.00 (0.00-0.012) x10^3u/L Lymphocytes % 31.4 (19.3-51.7) % Monocytes % 8.6 (4.7-12.5) % Eosinophils % 4.3 (0.7-5.8) % Basophils % 1.2 (0.1-1.2) % Absolute Granulocytes 3.28 (1.56-6.13) x10^3/uL Basophils # 0.07 (0.01-0.08) x10^3/uL Sodium (135-145) mmol/L Potassium (3.5-5.1) mmol/L Chloride (98-107) mmol/L Carbon Dioxide (22-30) mmol/L Anion Gap (5-15) MEQ/L BUN (7-17) mg/dL Creatinine (0.52-1.04) mg/dL Estimated GFR ML/MIN Glucose (74-106) mg/dL Calcium (8.4-10.2) mg/dL Magnesium (1.6-2.3) mg/dL Total Bilirubin (0.2-1.3) mg/dL AST (14-36) U/L ALT (0-35) U/L Alkaline Phosphatase (38-126) U/L Troponin I < 0.012 < 0.012 (0.000-0.033) ng/mL Serum Total Protein (6.3-8.2) g/dL Albumin (3.5-5.0) g/dL 04/14/24 04/14/24 Range/Units 04:55 04:55 WBC (3.98-10.04) x10^3/uL RBC (3.93-5.22) x10^6/uL Hgb (11.2-15.7) g/dL Hct (34.1-44.9) % MCV (79.4-94.8) fL MCH (25.6-32.2) pg MCHC (32.2-35.5) g/dL RDW (11.7-14.4) % Plt Count (182-369) x10^3/uL MPV (9.4-12.3) fL Gran % (34.0-71.1) % Immature Gran % (Auto) (0.001-0.429) % Nucleat RBC Rel Count (0.00-0.2) % Eos # (Auto) (0.04-0.36) x10^3/uL Immature Gran # (Auto) (0.001-0.031) x10^3u/L Absolute Lymphs (auto) (1.18-3.74) x10^3/uL Absolute Monos (auto) (0.24-0.86) x10^3/uL Absolute Nucleated RBC (0.00-0.012) x10^3u/L Lymphocytes % (19.3-51.7) % Monocytes % (4.7-12.5) % Eosinophils % (0.7-5.8) % Basophils % (0.1-1.2) % Absolute Granulocytes (1.56-6.13) x10^3/uL Basophils # (0.01-0.08) x10^3/uL Sodium 138 (135-145) mmol/L Potassium 4.4 (3.5-5.1) mmol/L Chloride 107 (98-107) mmol/L Carbon Dioxide 24 (22-30) mmol/L Anion Gap 11.0 (5-15) MEQ/L BUN 18 H (7-17) mg/dL Creatinine 0.87 (0.52-1.04) mg/dL Estimated GFR 69.9 ML/MIN Glucose 102 (74-106) mg/dL Calcium 9.2 (8.4-10.2) mg/dL Magnesium 1.8 (1.6-2.3) mg/dL Total Bilirubin 0.60 (0.2-1.3) mg/dL AST 20 (14-36) U/L ALT 13 (0-35) U/L Alkaline Phosphatase 66 (38-126) U/L Troponin I < 0.012 (0.000-0.033) ng/mL Serum Total Protein 6.1 L (6.3-8.2) g/dL Albumin 3.4 L (3.5-5.0) g/dL Microbiology 04/13/24 09:30 Urine Culture - Preliminary Catherized NO GROWTH TO DATE - Radiology Impressions Radiology Exams & Impressions: Radiology Procedures Category Date Time Status ANKLE (2V) Routine Exams 04/13/24 15:47 Completed CHEST WITH CONTRAST [CT] Stat Exams 04/13/24 08:21 Completed ECHO W/2D AND DOPPLER [US] Routine Exams 04/14/24 08:02 Taken FOOT (2 VIEWS) Routine Exams 04/13/24 15:47 Completed GALLBLADDER [US] Routine Exams 04/14/24 07:00 Completed HAND (MINIMUM 3 VIEWS) Routine Exams 04/13/24 15:48 Completed VENOUS UNILAT/LIMITED EXTREMIT [US] Stat Exams 04/13/24 08:25 Completed Assessment/Plan (1) Cellulitis of left lower extremity Current Visit: Yes Status: Acute Assessment & Plan: Inital patient examination and evaluation Radiographs reviewed and discussed with patient- MRI obtain to better assess potential for bone infection IV abx per Medicine team Pain control - as prescribed wound debridement preformed to the left ankle Unna boot applied for venous insufficiency. will follow with daily wet to dry santyl dressings. Code(s): L03.116 - CELLULITIS OF LEFT LOWER LIMB (2) Cellulitis of right index finger Current Visit: Yes Status: Acute Code(s): L03.011 - CELLULITIS OF RIGHT FINGER (3) Obesity (BMI 30.0-34.9) Current Visit: Yes Status: Chronic Code(s): E66.811 - OBESITY, CLASS 1 (4) Open wound of left heel Current Visit: Yes Status: Chronic Code(s): S91.302A - UNSPECIFIED OPEN WOUND, LEFT FOOT, INITIAL ENCOUNTER (5) Rheumatoid arthritis Current Visit: Yes Status: Chronic Code(s): M06.9 - RHEUMATOID ARTHRITIS, UNSPECIFIED (6) Wound of left ankle Current Visit: Yes Status: Chronic Code(s): S91.002A - UNSPECIFIED OPEN WOUND, LEFT ANKLE, INITIAL ENCOUNTER (7) Pressure ulcer of foot Current Visit: No Status: Acute Code(s): L89.899 - PRESSURE ULCER OF OTHER SITE, UNSPECIFIED STAGE (8) Wound exudate without odor Current Visit: No Status: Acute Code(s): [id number] -
[2024-04-15] MEDS: BENADRYL 25 MG CAPSULE PO PRN (01:29)
[2024-04-15 05:37] LABS: Hematocrit 29.7 % (34.1-44.9); Hemoglobin 9.4 g/dL (11.2-15.7); Mean Cell Volume 97.7 fL (79.4-94.8); Mean Corpuscular Hemoglobin 30.9 pg (25.6-32.2); Mean Corpuscular Hgb Concent. 31.6 g/dL (32.2-35.5); Mean Platelet Volume 9.7 fL (9.4-12.3); Platelet Count 435 x10^3/uL (182-369); Red Blood Count 3.04 x10^6/uL (3.93-5.22); Red Cell Distribution Width 13.3 % (11.7-14.4); White Blood Count 7.3 x10^3/uL (3.98-10.04)
[2024-04-15 06:06] LABS: ALBUMIN 3.4 g/dL (3.5-5.0); ANION GAP 12.6 MEQ/L (5-15); BILIRUBIN,TOTAL 0.5 mg/dL (0.2-1.3); Calcium 8.7 mg/dL (8.4-10.2); Creatinine 1 1.1 mg/dL (0.52-1.04); EST GLOMERULAR FILTRATION RATE 52.7 ML/MIN; Potassium 3.8 mmol/L (3.5-5.1); Total Protein 6.3 g/dL (6.3-8.2)
[2024-04-15] MEDS: Sodium Chloride 0.9% 1000 ML 1,000 ML IV SCH (08:13)
--- NOTE | 2024-04-15 11:35 | PCM.NOTE ---
Date and Time: 04/15/24 1126 Subjective Assessment: 04/14/24 is a 73 year old female with a history of old CVA (on Plavix and ASA 81 mg) and atrial fibrillation. She presented on 04/13/24 with c/o new onset 4 hours prior to admission shortness of breath, and intermittent burning/tingling in her left leg with episodes lasting up to 1 hour and intensity of 8/10. Pt denies any recent trauma. Pt states she has had an ulcer on her left lower leg for the past 10 months after a stroke with left sided weakness and has had a dressing change twice weekly during this period. Pt also states her right index finger became red, swollen and hot 2 days ago, came to [facility] ER and was placed on bactrim & prednisone w/o improvement. She follows the wound care center at [facility] and also has [facility]HC with Cathy Boyce RN for wound care. She was started on clindamycin IV for cellulitis and podiatry consulted. Venous duplex of LLE negative for DVT. Chest CT completed in ER and showed pulm HTN- an echo was ordered. IV fluids stopped. BC x2, wound culture, and UC all pending. CT chest showed: The stomach is seen herniated and located at the posterior aspect of the left side of the chest with rotation of the stomach along its long axis, suggestive of a sliding hiatus hernia associated with a rolling hiatus hernia. Bilateral lung ground glass nodules. Multiple gallbladder stones. Dilated CBD measures 9 mm in caliber for further evaluation by MRCP. The dilated pulmonary trunk measures 34 mm, suggesting of pulmonary hypertension, clinical correlation is needed. GB US ordered for further eval of dilated CBD- will consider MRCP. Pt denies any abd pain N/V until abd. palpated. Consider surgery consult. She denies any further concerns at this time. 04/15/24 Pt resting in bed. XR of right hand, left ankle and and left foot reviewed and appears she may have osteomyelitis. MRI's ordered for further evaluation. Continue Clindamycin IV. Wound culture gram negative and sensitivity pending. US of gallbladder from yesterday shows mod distension of gallbladder. She has no c/o abd pain. Pt can F/U OP with GS for this. IVF started for ANDIE. She c/o right index finger pain and edema. She feels she needs her gabapentin dose increased as she has burning pain BLLE. Gabapentin increased to 300mg TID. Discussed side effects of medication including sedation and she reports no hx of this in the past. Podiatry evaluation pending. Plan is for pt to d/c to [facility] at d/c when ready. She denies CP, SOB, abd. pain, N/V/D. - Review of Systems Constitutional: No Fever, No Chills Eyes: No Symptoms Ears, Nose, & Throat: No Symptoms Respiratory: No Cough, No Short Of Breath Cardiac: No Chest Pain, No Edema, No Syncope Abdominal/Gastrointestinal: No Abdominal Pain, No Nausea, No Vomiting, No Diarrhea Genitourinary Symptoms: No Dysuria Musculoskeletal: No Back Pain, No Neck Pain Skin: Skin Lesions (Left ankle and foot, Right index finger edema and erythema. ), No Rash Neurological: No Dizziness, No Focal Weakness, No Sensory Changes Psychological: No Symptoms Endocrine: No Symptoms Hematologic/Lymphatic: No Symptoms Immunological/Allergic: No Symptoms Objective Exam General Appearance: no apparent distress, alert, obese Neurologic Exam: alert, oriented x 3, cooperative, normal mood/affect, nml cerebellar function, sensation nml, No motor deficits Skin Exam: normal color, warm, dry, other (Left ankle and foot, Right index finger edema and erythema.) Wound Assessment: Skin/Wound Assessment Wound/Incision Assessment Start: 04/13/24 20:00 Text: Status: Active Freq: Q6H Protocol: Document 04/15/24 08:00 [facility] (Rec: 04/15/24 09:42 [facility] [id number]) Wound/Incision Assessment Left Lower Anterior Leg-proximal Wound Assessment Shift Assessment Wound Type CELLULITIS/ULCERATION Dressing Status Dry & Intact Comment COMPRESSION DRESSING PER JATIN IN PLACE, UNABLE TO ASSESS WOUND, REMAINS TRUE Left Lower Anterior Leg-medial Wound Assessment Shift Assessment Wound Type CELLULITIS/ULCERATION Dressing Status Dry & Intact Comment COMPRESSION DRESSING PER JATIN IN PLACE, UNABLE TO ASSESS WOUND, REMAINS TRUE Left Lower Anterior Leg-distal Wound Assessment Shift Assessment Wound Type CELLULITIS/ULCERATION Dressing Status Dry & Intact Comment COMPRESSION DRESSING PER JATIN IN PLACE, UNABLE TO ASSESS WOUND, REMAINS TRUE Right hand, 2nd finger Wound Assessment Shift Assessment Wound Type Burn Wound Stage Non Pressure Wound Drainage Amount None Comment OLD HEALING BURN Right Buttock Wound Assessment Shift Assessment Wound Type Pressure Ulcer Wound Stage Stage II Drainage Amount None General Appearance Open to air Surrounding Tissue [place] Comment WEIGHT SHIFT IN BED, BARRIER CREAM APPLIED Wound Photo Photo Taken No Eye Exam: PERRL, EOMI, eyes nml inspection Ears, Nose, Throat Exam: normal ENT inspection, pharynx normal, moist mucous membranes Neck Exam: normal inspection, non-tender, supple, full range of motion Respiratory Exam: normal breath sounds, lungs clear, No respiratory distress Cardiovascular Exam: regular rate/rhythm, normal heart sounds Gastrointestinal/Abdomen Exam: soft, No tenderness, No mass Extremity Exam: normal inspection, normal range of motion Back Exam: normal inspection, normal range of motion, No CVA tenderness, No vertebral tenderness Pelvic Exam: deferred Rectal Exam: deferred Objective Data Vital Signs: Vital Signs - 24 hr Temp Pulse Resp BP Pulse Ox 04/15/24 07:13 98.0 F 84 16 118/57 96 04/15/24 05:10 89 106/54 04/15/24 04:00 97.7 F 97 H 16 93/55 98 04/14/24 23:48 97.4 F 92 H 16 116/58 94 L 04/14/24 21:09 108 H 118/66 04/14/24 19:42 97.9 F 117 H 18 93/52 92 L 04/14/24 16:00 98.0 F 119 H 16 137/86 93 L 04/14/24 12:00 97.8 F 91 H 16 110/56 96 Pain Assessment - Last Documented Pain Intensity 7 Pain Scale Used 0-10 Pain Scale Intake and Output: Intake & Output 04/12/24 04/13/24 04/14/24 04/15/24 11:59 11:59 11:59 11:59 Intake Total 580 1420 Output Total 900 1100 Balance -320 320 Weight 80.1 kg 77.1 kg 76.8 kg Lab Results: Lab Results-Last 24 Hours 04/13/24 04/13/24 04/15/24 Range/Units 08:54 13:20 04:20 WBC 7.3 (3.98-10.04) x10^3/uL RBC 3.04 L (3.93-5.22) x10^6/uL Hgb 9.4 L (11.2-15.7) g/dL Hct 29.7 L (34.1-44.9) % MCV 97.7 H (79.4-94.8) fL MCH 30.9 (25.6-32.2) pg MCHC 31.6 L (32.2-35.5) g/dL RDW 13.3 (11.7-14.4) % Plt Count 435 H (182-369) x10^3/uL MPV 9.7 (9.4-12.3) fL Sodium (135-145) mmol/L Potassium (3.5-5.1) mmol/L Chloride (98-107) mmol/L Carbon Dioxide (22-30) mmol/L Anion Gap (5-15) MEQ/L BUN (7-17) mg/dL Creatinine (0.52-1.04) mg/dL Estimated GFR ML/MIN Glucose (74-106) mg/dL Calcium (8.4-10.2) mg/dL Total Bilirubin (0.2-1.3) mg/dL AST (14-36) U/L ALT (0-35) U/L Alkaline Phosphatase (38-126) U/L Troponin I < 0.012 (0.000-0.033) ng/mL C-Reactive Prot, Quant 2 (0-10) mg/L Serum Total Protein (6.3-8.2) g/dL Albumin (3.5-5.0) g/dL 04/15/24 Range/Units 04:20 WBC (3.98-10.04) x10^3/uL RBC (3.93-5.22) x10^6/uL Hgb (11.2-15.7) g/dL Hct (34.1-44.9) % MCV (79.4-94.8) fL MCH (25.6-32.2) pg MCHC (32.2-35.5) g/dL RDW (11.7-14.4) % Plt Count (182-369) x10^3/uL MPV (9.4-12.3) fL Sodium 137 (135-145) mmol/L Potassium 3.8 (3.5-5.1) mmol/L Chloride 105 (98-107) mmol/L Carbon Dioxide 23 (22-30) mmol/L Anion Gap 12.6 (5-15) MEQ/L BUN 34 H (7-17) mg/dL Creatinine 1.10 H (0.52-1.04) mg/dL Estimated GFR 52.7 ML/MIN Glucose 127 H (74-106) mg/dL Calcium 8.7 (8.4-10.2) mg/dL Total Bilirubin 0.50 (0.2-1.3) mg/dL AST 20 (14-36) U/L ALT 13 (0-35) U/L Alkaline Phosphatase 58 (38-126) U/L Troponin I (0.000-0.033) ng/mL C-Reactive Prot, Quant (0-10) mg/L Serum Total Protein 6.3 (6.3-8.2) g/dL Albumin 3.4 L (3.5-5.0) g/dL Radiology Exams: Radiology Procedures Category Date Time Status ANKLE (2V) Routine Exams 04/13/24 15:47 Completed ECHO W/2D AND DOPPLER [US] Routine Exams 04/14/24 08:02 Taken FOOT (2 VIEWS) Routine Exams 04/13/24 15:47 Completed GALLBLADDER [US] Routine Exams 04/14/24 07:00 Completed HAND (MINIMUM 3 VIEWS) Routine Exams 04/13/24 15:48 Completed MRI LOWER EXT W/O CONTRAST [MRI] Routine Exams 04/15/24 07:49 Ordered MRI UPPER EXT JOINT W/O CONTRA [MRI] Routine Exams 04/15/24 07:51 Ordered Multi-Disciplinary Progress Notes: Multi-Disciplinary Progress Notes 04/14/24 15:45 (created 04/15/24 11:17) Case Management Note by Bella Gonzales SPOKE WITH PT AND DAUGHTER REGARDING REHAB STAY AT [facility]. DAUGHTER REPORTS THAT PT THINKS THAT SHE HAS TO GO TO REHAB FACILITY THAT SHE DOES NOT HAVE A CHOICE. DISCUSSED THAT PT HAS [employer] AT HOME 23/10 AND SHE REALLY DOESN'T WANT TO LOSE THEM. PT REPORTS THAT SOME OF HER FAMILY HAS MADE HER FEEL LIKE A BURDEN AND SHE DOESN'T WANT TO FEEL THAT WAY OR BE A BURDEN TO ANYONE. EMOTIONAL SUPPORT PROVIDED. DID DISCUSS THAT IT WAS ABSOLUTELY HER CHOICE TO GO TO REHAB OR NOT TO GO TO REHAB. DISCUSSED THAT SHE COULD RETURN HOME WITH HER [facility] AND [facility] IF THAT IS WHAT SHE PREFERRED AND FELT COMFORTABLE WITH. DAUGHTER THANKED THIS CM FOR COMING AND TALKING/EXPLAINING THIS TO PATIENT. DAUGHTER REPORTS THAT THEY WILL DISCUSS AND MAKE A DECISION. DAUGHTER REITERATED TO HER MOTHER THAT SHE WAS NOT A BURDEN AND SHE WANTED TO DO WHAT HER MOTHER WANTED TO DO, IT IS HER DECISION TO MAKE. Initialized on 04/15/24 11:17 - END OF NOTE 04/14/24 14:28 Case Management Note by Gisele nAn PATIENT REQUESTING INFORMATION ON PRIVATE PAY PRICING AT [facility] PATIENT UPDATED ON PRICING- SHE WOULD LIKE REFERRAL SENT TO THEM PASRR COMPLETE- NO LEVEL II REQUIRED. COPY SENT TO FACILITY WITH REFERRAL AND COPY PLACED ON CHART REFERRAL FAXED TO [facility] NOTING PRIVATE PAY STAY. Initialized on 04/14/24 14:28 - END OF NOTE 04/14/24 14:27 Case Management Note by Gisele Ann PATIENT HAS [facility]- CALLED TO NOTIFY THEM OF OBS STAY- NO ANSWER, LM THEY WILL NEED NOTIFIED AT TIME OF DC AT [phone]. THEY WILL NEED FAXED THE DC INSTRUCTIONS, DC MED LIST AND DC SUMMARY TO [phone] Initialized on 04/14/24 14:27 - END OF NOTE Assessment/Plan (1) Cellulitis of left lower extremity Current Visit: Yes Status: Acute Code(s): L03.116 - CELLULITIS OF LEFT LOWER LIMB (2) Cellulitis of right index finger Current Visit: Yes Status: Acute Code(s): L03.011 - CELLULITIS OF RIGHT FINGER (3) Gallstones Current Visit: Yes Status: Acute Code(s): K80.20 - CALCULUS OF GALLBLADDER W/O CHOLECYSTITIS W/O OBSTRUCTION (4) Pulmonary HTN Current Visit: Yes Status: Acute Code(s): I27.20 - PULMONARY HYPERTENSION, UNSPECIFIED (5) HTN (hypertension) Current Visit: Yes Status: Chronic Code(s): I10 - ESSENTIAL (PRIMARY) HYPERTENSION (6) Rheumatoid arthritis Current Visit: Yes Status: Chronic Code(s): M06.9 - RHEUMATOID ARTHRITIS, UNSPECIFIED (7) Wound of left ankle Current Visit: Yes Status: Chronic Code(s): S91.002A - UNSPECIFIED OPEN WOUND, LEFT ANKLE, INITIAL ENCOUNTER (8) Open wound of left heel Current Visit: Yes Status: Chronic Code(s): S91.302A - UNSPECIFIED OPEN WOUND, LEFT FOOT, INITIAL ENCOUNTER (9) Obesity (BMI 30.0-34.9) Current Visit: Yes Status: Chronic Assessment & Plan: (1) Cellulitis of left lower extremity Current Visit: Yes Status: Acute Assessment & Plan: - Clindamycin IV - probiotics - Venous duplex LLE negative for DVT - CBC reviewed -Xray left foot: IMPRESSION: 1. Diffuse osteopenic changes are seen in the left foot bones. 2. Multifocal lytic areas are visible in the talus, calcaneum and navicular bone. 3. Cortical erosions along the lateral aspects of metatarsal heads of 2nd-5th fingers along with soft tissue haziness. 4. Diffuse surrounding soft tissue thickening is seen around the ankle and lateral aspect of the foot. 5. Imaging appearances are concerning for osteomyelitis. Further evaluation with MRI can be considered if clinically indicated. - XR left ankle: IMPRESSION: 1. Osteopenic changes with multiple patchy lucent areas in the ankle bones, in particular in the talus, navicular, and calcaneum. 2. Marked soft tissue swelling is evident along both sides of the ankle joint with soft tissue edema and haziness. 3. Imaging appearances are concerning for osteomyelitis. Further evaluation with MRI is suggested. 4. Lucent line is noted in the apex of the medial malleolus, could be projectional, possibility of undisplaced fracture cannot be entirely excluded, would recommend clinical correlation for focal tenderness in this region and CT scan/MRI for further evaluation. -Podiatry consult -Patient receives wound care OP with Cathy Boyce at [facility] -Culture drainage -vanessa borders -elevated affected limb - BC x2 pending - MRI of left foot and ankle - CRP 2, ESR 26 Code(s): L03.116 - CELLULITIS OF LEFT LOWER LIMB (2) Cellulitis of right index finger Current Visit: Yes Status: Acute Assessment & Plan: -xray right hand 1. Prominent bone destruction involving the distal phalanx of the right index finger with near-complete resorption of the tuft and shaft. Marked surrounding soft tissue swelling along the index finger and thumb. The imaging appearances are concerning for osteomyelitis. Further evaluation with MRI can be considered if clinically indicated. 2. Mild osteoarthritic changes with reduced joint spaces along the first and second metacarpophalangeal joints, and proximal interphalangeal joints. 3. Reduced radiocarpal joint space with sclerosis of the distal radius and calcifications in the radiocarpal/ulnocarpal joints. - MRI pending -Clindamycin IV -Prednisone started- will continue -pain control -culture any drainage -vanessa borders -elevate affected limb -crp, esr reviewed - tramadol for pain Q6 PRN Code(s): L03.011 - CELLULITIS OF RIGHT FINGER (3) Gallstones Current Visit: Yes Status: Acute Assessment & Plan: - Chest CT: IMPRESSION: 1. 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 2. Bilateral lung ground glass nodules. 3. Multiple gallbladder stones. Dilated CBD measures 9 mm in caliber for further evaluation by MRCP. 4. The dilated pulmonary trunk measures 34 mm, suggesting of pulmonary hypertension, clinical correlation is needed. - US GB: Pancreas not well-seen due to overlying bowel gas. Visualized gallbladder is moderately distended with multiple tiny gallstones/gravel in the dependent portion. No abnormal gallbladder wall thickening or pericholecystic fluid. Common bile duct measures 5.8 mm. No intrahepatic biliary distention. Remaining visualized liver and right kidney are sonographic unremarkable. Right kidney measures 10.3 x 4.2 x 4.4 cm. Impression: Nonvisualization pancreas. Cholelithiasis without cholecystitis or biliary distention. - Will need OP f/u with GS - consider ERCP - consider GS consult - CBC reviewed Code(s): K80.20 - CALCULUS OF GALLBLADDER W/O CHOLECYSTITIS W/O OBSTRUCTION (4) Pulmonary HTN Current Visit: Yes Status: Acute Assessment & Plan: - As seen on chest CT - Echo reviewed - RA 93% - Follows Dr. Plasencia Code(s): I27.20 - PULMONARY HYPERTENSION, UNSPECIFIED (5) HTN (hypertension) Current Visit: Yes Status: Chronic Assessment & Plan: -stable continue home meds Code(s): I10 - ESSENTIAL (PRIMARY) HYPERTENSION (6) Rheumatoid arthritis Current Visit: Yes Status: Chronic Assessment & Plan: -noted Code(s): M06.9 - RHEUMATOID ARTHRITIS, UNSPECIFIED (7) Wound of left ankle Current Visit: Yes Status: Chronic Assessment & Plan: -see cellulitis of LE plan Code(s): S91.002A - UNSPECIFIED OPEN WOUND, LEFT ANKLE, INITIAL ENCOUNTER (8) Open wound of left heel Current Visit: Yes Status: Chronic Assessment & Plan: -see cellulitis of LE plan Code(s): S91.302A - UNSPECIFIED OPEN WOUND, LEFT FOOT, INITIAL ENCOUNTER (9) Obesity (BMI 30.0-34.9) Current Visit: Yes Status: Chronic Assessment & Plan: - advised diet ad exercise control Code(s): E66.811 - OBESITY, CLASS 1 (10) Ground glass opacity present on imaging of lung Current Visit: Yes Status: Acute Assessment & Plan: - as seen on CT chest: IMPRESSION: 1. 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 2. Bilateral lung ground glass nodules. 3. Multiple gallbladder stones. Dilated CBD measures 9 mm in caliber for further evaluation by MRCP. 4. The dilated pulmonary trunk measures 34 mm, suggesting of pulmonary hypertension, clinical correlation is needed. - will need OP f/u with Pulm Code(s): R91.8 - OTHER NONSPECIFIC ABNORMAL FINDING OF LUNG FIELD (11) Diastolic heart failure Current Visit: Yes Status: Acute Assessment & Plan: - as seen on Echo Severe LVH diastolic dysfunction - EF 77% - Will need cardiology OP f/u VTE: Lovenox PPI: Protonix Dispo: 1-2 days Code: full code Next of KIN: daughter Code(s): I50.30 - UNSPECIFIED DIASTOLIC (CONGESTIVE) HEART FAILURE
[2024-04-15] MEDS: ULTRAM 50 MG PO PRN (12:32)
--- NOTE | 2024-04-15 14:21 | XRAY ---
Indication: Osteomyelitis. Sagittal, coronal, and axial MRI left ankle/foot performed using T1, T2, and STIR sequences. Comparison: None Left ankle/foot mortise is anatomic without abnormal effusion. Tibial plafond and talar dome smooth without osteochondral injury. Subtalar joint unremarkable. No acute fracture, suspicious bony lesions, or abnormal bone marrow signal. Major medial and lateral ankle ligaments/tendons intact without abnormal signal. Visualized Achilles tendon and plantar aponeurosis unremarkable. Lateral ankle and lateral foot demonstrates mild subcutaneous soft tissue swelling/edema. No focal solid/cystic soft tissue mass or abnormal fluid collection. Visualized flexor and extensor mechanism unremarkable. Impression: Lateral ankle and lateral foot subcutaneous soft tissue swelling/edema. Remaining MRI left ankle/foot is negative.
--- NOTE | 2024-04-15 15:10 | XRAY ---
Indication: Right 2nd finger osteomyelitis. Sagittal, coronal, and axial MRI right 2nd-4th fingers obtained using T1, T2, and STIR sequences. Comparison: None Study is degraded by diffuse motion artifact on all sequences. There appears to be soft tissue swelling/edema mid and distal 2nd phalanx presumed inflammatory/infectious. Distal 2nd phalanx and lesser degree middle 2nd phalanx demonstrates bone edema signal favoring clinically reported osteomyelitis. Minimal bone edema signal seen head of proximal 2nd phalanx. No other obvious focal solid/cystic soft tissue mass or abnormal fluid collection. No gross acute fracture, dislocation, or suspicious bony lesions. Impression: Diffuse motion artifact. Cellulitis mid to distal 2nd finger. Suspect underlying osteomyelitis middle/distal phalanges and lesser degree head proximal phalanx.
[2024-04-15] MEDS: NEURONTIN PO SCH (15:22)
[2024-04-15] MEDS: Protonix 20MG Tablet PO PRN (21:14)
[2024-04-16 05:39] LABS: Hematocrit 31.4 % (34.1-44.9); Hemoglobin 9.6 g/dL (11.2-15.7); Mean Cell Volume 98.1 fL (79.4-94.8); Mean Corpuscular Hgb Concent. 30.6 g/dL (32.2-35.5); Mean Platelet Volume 9.6 fL (9.4-12.3); Platelet Count 455 x10^3/uL (182-369); Red Cell Distribution Width 13.2 % (11.7-14.4); White Blood Count 7.5 x10^3/uL (3.98-10.04)
[2024-04-16 05:57] LABS: ALBUMIN 3.5 g/dL (3.5-5.0); ANION GAP 9.4 MEQ/L (5-15); BILIRUBIN,TOTAL 0.5 mg/dL (0.2-1.3); Calcium 8.8 mg/dL (8.4-10.2); Creatinine 1 0.92 mg/dL (0.52-1.04); EST GLOMERULAR FILTRATION RATE 65.3 ML/MIN; Potassium 4.2 mmol/L (3.5-5.1); Total Protein 6.5 g/dL (6.3-8.2)
[2024-04-16] MEDS ORDERED: GARAMYCIN IV SCH (08:00)
[2024-04-16] MEDS ORDERED: SODIUM CHLORIDE 0.9% IV SCH (08:00)
[2024-04-16] MEDS: GENTAMICIN 80 MG/50 ML PREMIX*** 100 ML IV SCH ×2 (08:17→21:00)
--- NOTE | 2024-04-16 10:41 | PCM.NOTE ---
Date and Time: 04/16/24 1036 Subjective Assessment: 04/14/24 is a 73 year old female with a history of old CVA (on Plavix and ASA 81 mg) and atrial fibrillation. She presented on 04/13/24 with c/o new onset 4 hours prior to admission shortness of breath, and intermittent burning/tingling in her left leg with episodes lasting up to 1 hour and intensity of 8/10. Pt denies any recent trauma. Pt states she has had an ulcer on her left lower leg for the past 10 months after a stroke with left sided weakness and has had a dressing change twice weekly during this period. Pt also states her right index finger became red, swollen and hot 2 days ago, came to [facility] ER and was placed on bactrim & prednisone w/o improvement. She follows the wound care center at [facility] and also has HHC with Cathy Boyce RN for wound care. She was started on clindamycin IV for cellulitis and podiatry consulted. Venous duplex of LLE negative for DVT. Chest CT completed in ER and showed pulm HTN- an echo was ordered. IV fluids stopped. BC x2, wound culture, and UC all pending. CT chest showed: The stomach is seen herniated and located at the posterior aspect of the left side of the chest with rotation of the stomach along its long axis, suggestive of a sliding hiatus hernia associated with a rolling hiatus hernia. Bilateral lung ground glass nodules. Multiple gallbladder stones. Dilated CBD measures 9 mm in caliber for further evaluation by MRCP. The dilated pulmonary trunk measures 34 mm, suggesting of pulmonary hypertension, clinical correlation is needed. GB US ordered for further eval of dilated CBD- will consider MRCP. Pt denies any abd pain N/V until abd. palpated. Consider surgery consult. She denies any further concerns at this time. 04/15/24 Pt resting in bed. XR of right hand, left ankle and and left foot reviewed and appears she may have osteomyelitis. MRI's ordered for further evaluation. Continue Clindamycin IV. Wound culture gram negative and sensitivity pending. US of gallbladder from yesterday shows mod distension of gallbladder. She has no c/o abd pain. Pt can F/U OP with [facility] for this. IVF started for ANDIE. She c/o right index finger pain and edema. She feels she needs her gabapentin dose increased as she has burning pain BLLE. Gabapentin increased to 300mg TID. Discussed side effects of medication including sedation and she reports no hx of this in the past. Podiatry evaluation pending. Plan is for pt to d/c to [facility] at d/c when ready. She denies CP, SOB, abd. pain, N/V/D. 04/16/24 Pt resting in bed. Ortho consulted for osteomyelitis of Right index finger seen on MRI. Plan is for pt have amputation Sunday of index finger. Will hold Pletal and Plavix day prior. Left ankle culture came back + for Pseudomonas. IV antibiotic changed to Gentamycin per sensitivity results. Podiatry continues to follow LLE wounds. She denies any further concerns at this time. - Review of Systems Constitutional: No Fever, No Chills Eyes: No Symptoms Ears, Nose, & Throat: No Symptoms Respiratory: No Cough, No Short Of Breath Cardiac: No Chest Pain, No Edema, No Syncope Abdominal/Gastrointestinal: No Abdominal Pain, No Nausea, No Vomiting, No Diarrhea Genitourinary Symptoms: No Dysuria Musculoskeletal: No Back Pain, No Neck Pain Skin: Other (LLE wrapped, right hand index finger swollen), No Rash Neurological: No Dizziness, No Focal Weakness, No Sensory Changes Psychological: No Symptoms Endocrine: No Symptoms Hematologic/Lymphatic: No Symptoms Immunological/Allergic: No Symptoms Objective Exam General Appearance: no apparent distress, alert, obese Neurologic Exam: alert, oriented x 3, cooperative, normal mood/affect, nml cerebellar function, sensation nml, No motor deficits Skin Exam: normal color, warm, dry, other (edema right index finger) Wound Assessment: Skin/Wound Assessment Wound/Incision Assessment Start: 04/13/24 20:00 Text: Status: Active Freq: Q6H Protocol: Document 04/16/24 08:00 MITZY (Rec: 04/16/24 09:10 MITZY [id number]) Wound/Incision Assessment Left Lower Anterior Leg-proximal Wound Assessment Shift Assessment Wound Type CELLULITIS/ULCERATION Wound Stage Non Pressure Wound Dressing Status Dry & Intact Drainage Amount None Comment DR. STEINER DRESSING IN PLACE Left Lower Anterior Leg-medial Wound Assessment Shift Assessment Wound Type CELLULITIS/ULCERATION Wound Stage Non Pressure Wound Dressing Status Dry & Intact Drainage Amount None Comment DR. STEINER DRESSING IN PLACE Left Lower Anterior Leg-distal Wound Assessment Shift Assessment Wound Type CELLULITIS/ULCERATION Wound Stage Non Pressure Wound Dressing Status Dry & Intact Drainage Amount None Comment DR. STEINER DRESSING IN PLACE Right hand, 2nd finger Wound Assessment Shift Assessment Wound Type Burn Wound Stage Non Pressure Wound General Appearance Open to air Comment MODERATE EDEMA, WARM TO THE TOUCH Right Buttock Wound Assessment Shift Assessment Wound Type Pressure Ulcer Wound Stage Stage II General Appearance Open to air Comment WILL APPLY CREAM Eye Exam: PERRL, EOMI, eyes nml inspection Ears, Nose, Throat Exam: normal ENT inspection, pharynx normal, moist mucous membranes Neck Exam: normal inspection, non-tender, supple, full range of motion Respiratory Exam: normal breath sounds, lungs clear, No respiratory distress Cardiovascular Exam: regular rate/rhythm, normal heart sounds Gastrointestinal/Abdomen Exam: soft, No tenderness, No mass Extremity Exam: normal inspection, normal range of motion Back Exam: normal inspection, normal range of motion, No CVA tenderness, No vertebral tenderness Pelvic Exam: deferred Rectal Exam: deferred Objective Data Vital Signs: Vital Signs - 24 hr Temp Pulse Resp BP Pulse Ox 04/16/24 07:08 97.9 F 85 16 144/68 94 L 04/16/24 05:00 97.7 F 95 H 20 135/68 93 L 04/15/24 23:24 97.6 F 103 H 20 104/55 95 04/15/24 20:00 97.5 F 114 H 21 125/79 92 L 04/15/24 16:17 97.9 F 105 H 16 123/61 92 L 04/15/24 11:26 97.7 F 96 H 16 93/52 97 Pain Assessment - Last Documented Pain Intensity 8 Pain Scale Used 0-10 Pain Scale Intake and Output: Intake & Output 04/13/24 04/14/24 04/15/24 04/16/24 11:59 11:59 11:59 11:59 Intake Total 580 1420 3863 Output Total 900 1100 1650 Balance -936 458 9944 Weight 80.1 kg 77.1 kg 76.8 kg Lab Results: Lab Results-Last 24 Hours 04/13/24 04/16/24 04/16/24 Range/Units 13:20 05:30 05:30 WBC 7.5 (3.98-10.04) x10^3/uL RBC 3.20 L (3.93-5.22) x10^6/uL Hgb 9.6 L (11.2-15.7) g/dL Hct 31.4 L (34.1-44.9) % MCV 98.1 H (79.4-94.8) fL MCH 30.0 (25.6-32.2) pg MCHC 30.6 L (32.2-35.5) g/dL RDW 13.2 (11.7-14.4) % Plt Count 455 H (182-369) x10^3/uL MPV 9.6 (9.4-12.3) fL Sodium 136 (135-145) mmol/L Potassium 4.2 (3.5-5.1) mmol/L Chloride 105 (98-107) mmol/L Carbon Dioxide 26 (22-30) mmol/L Anion Gap 9.4 (5-15) MEQ/L BUN 25 H (7-17) mg/dL Creatinine 0.92 (0.52-1.04) mg/dL Estimated GFR 65.3 ML/MIN Glucose 117 H (74-106) mg/dL Calcium 8.8 (8.4-10.2) mg/dL Total Bilirubin 0.50 (0.2-1.3) mg/dL AST 25 (14-36) U/L ALT 15 (0-35) U/L Alkaline Phosphatase 61 (38-126) U/L C-Reactive Prot, Quant 2 (0-10) mg/L Serum Total Protein 6.5 (6.3-8.2) g/dL Albumin 3.5 (3.5-5.0) g/dL Radiology Exams: Radiology Procedures Category Date Time Status MRI LOWER EXT W/O CONTRAST [MRI] Routine Exams 04/15/24 07:49 Completed MRI UPPER EXT JOINT W/O CONTRA [MRI] Routine Exams 04/15/24 07:51 Completed Multi-Disciplinary Progress Notes: Multi-Disciplinary Progress Notes 04/16/24 08:53 Pharmacy Note by Quinn Wright Gentamicin dosed at 160mg iv q18h. Will order levels after 3 doses given. Initialized on 04/16/24 08:53 - END OF NOTE 04/15/24 11:41 Case Management Note by Gisele Ann S/W SENDY AT [facility] THEY HAVE ACCEPTED PATIENT. PATIENT NOTIFIED AND VERIFIED UNDERSTANDING. SHE IS STILL CONTEMPLATING GOING TO REHAB OR RETURNING HOME WITH HER CAREGIVERS AND C. PATIENT NOTED IF IV ANTIBIOTICS AND WOUND CARE ARE NEEDED SHE WOULD PREFER TO GO AHEAD AND USE HER SNF DAYS AT FACILITY IF ABLE. WILL CONTINUE TO ASSESS NEEDS CLOSER TO TIME OF DC Initialized on 04/15/24 11:41 - END OF NOTE Assessment/Plan (1) Cellulitis of left lower extremity Current Visit: Yes Status: Acute Code(s): L03.116 - CELLULITIS OF LEFT LOWER LIMB (2) Cellulitis of right index finger Current Visit: Yes Status: Acute Code(s): L03.011 - CELLULITIS OF RIGHT FINGER (3) Gallstones Current Visit: Yes Status: Acute Code(s): K80.20 - CALCULUS OF GALLBLADDER W/O CHOLECYSTITIS W/O OBSTRUCTION (4) Pulmonary HTN Current Visit: Yes Status: Acute Code(s): I27.20 - PULMONARY HYPERTENSION, UNSPECIFIED (5) HTN (hypertension) Current Visit: Yes Status: Chronic Code(s): I10 - ESSENTIAL (PRIMARY) HYPERTENSION (6) Rheumatoid arthritis Current Visit: Yes Status: Chronic Code(s): M06.9 - RHEUMATOID ARTHRITIS, UNSPECIFIED (7) Wound of left ankle Current Visit: Yes Status: Chronic Code(s): S91.002A - UNSPECIFIED OPEN WOUND, LEFT ANKLE, INITIAL ENCOUNTER (8) Open wound of left heel Current Visit: Yes Status: Chronic Code(s): S91.302A - UNSPECIFIED OPEN WOUND, LEFT FOOT, INITIAL ENCOUNTER (9) Obesity (BMI 30.0-34.9) Current Visit: Yes Status: Chronic Code(s): E66.811 - OBESITY, CLASS 1 (10) Ground glass opacity present on imaging of lung Current Visit: Yes Status: Acute Code(s): R91.8 - OTHER NONSPECIFIC ABNORMAL FINDING OF LUNG FIELD (11) Diastolic heart failure Current Visit: Yes Status: Acute Assessment & Plan: (1) Cellulitis of left lower extremity Current Visit: Yes Status: Acute Assessment & Plan: - Clindamycin IV - Probiotics - Venous duplex LLE negative for DVT - CBC reviewed -Xray left foot: IMPRESSION: 1. Diffuse osteopenic changes are seen in the left foot bones. 2. Multifocal lytic areas are visible in the talus, calcaneum and navicular bone. 3. Cortical erosions along the lateral aspects of metatarsal heads of 2nd-5th fingers along with soft tissue haziness. 4. Diffuse surrounding soft tissue thickening is seen around the ankle and lateral aspect of the foot. 5. Imaging appearances are concerning for osteomyelitis. Further evaluation with MRI can be considered if clinically indicated. - XR left ankle: IMPRESSION: 1. Osteopenic changes with multiple patchy lucent areas in the ankle bones, in particular in the talus, navicular, and calcaneum. 2. Marked soft tissue swelling is evident along both sides of the ankle joint with soft tissue edema and haziness. 3. Imaging appearances are concerning for osteomyelitis. Further evaluation with MRI is suggested. 4. Lucent line is noted in the apex of the medial malleolus, could be projectional, possibility of undisplaced fracture cannot be entirely excluded, would recommend clinical correlation for focal tenderness in this region and CT scan/MRI for further evaluation. -Podiatry consult -Patient receives wound care OP with Cathy Boyce at [facility] -Culture drainage -vanessa borders -elevated affected limb - BC x2 pending - MRI of left foot and ankle - CRP 2, ESR 26 04/16 - Left ankle wound culture + for pseudomonas - IV antibiotic changed to Gentamycin pharmacy to dose - PICC line ordered- will be done tomorrow around 10 am - podiatry following - CBC, CMP reviewed - MRI LE: Impression: Lateral ankle and lateral foot subcutaneous soft tissue swelling/edema. Remaining MRI left ankle/foot is negative. Code(s): L03.116 - CELLULITIS OF LEFT LOWER LIMB (2) Cellulitis of right index finger Current Visit: Yes Status: Acute Assessment & Plan: -xray right hand 1. Prominent bone destruction involving the distal phalanx of the right index finger with near-complete resorption of the tuft and shaft. Marked surrounding soft tissue swelling along the index finger and thumb. The imaging appearances are concerning for osteomyelitis. Further evaluation with MRI can be considered if clinically indicated. 2. Mild osteoarthritic changes with reduced joint spaces along the first and second metacarpophalangeal joints, and proximal interphalangeal joints. 3. Reduced radiocarpal joint space with sclerosis of the distal radius and calcifications in the radiocarpal/ulnocarpal joints. - MRI pending -Clindamycin IV -Prednisone started- will continue -pain control -culture any drainage -vanessa borders -elevate affected limb -crp, esr reviewed - tramadol for pain Q6 PRN 04/16 - MRI upper extremity: Impression: Diffuse motion artifact. Cellulitis mid to distal 2nd finger. Suspect underlying osteomyelitis middle/distal phalanges and lesser degree head proximal phalanx - Ortho consulted- plan is for amputation Sunday - Per ortho hold pletal and plavix 1 days prior to procddure Code(s): L03.011 - CELLULITIS OF RIGHT FINGER (3) Gallstones Current Visit: Yes Status: Acute Assessment & Plan: - Chest CT: IMPRESSION: 1. 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 2. Bilateral lung ground glass nodules. 3. Multiple gallbladder stones. Dilated CBD measures 9 mm in caliber for further evaluation by MRCP. 4. The dilated pulmonary trunk measures 34 mm, suggesting of pulmonary hypertension, clinical correlation is needed. - US GB: Pancreas not well-seen due to overlying bowel gas. Visualized gallbladder is moderately distended with multiple tiny gallstones/gravel in the dependent portion. No abnormal gallbladder wall thickening or pericholecystic fluid. Common bile duct measures 5.8 mm. No intrahepatic biliary distention. Remaining visualized liver and right kidney are sonographic unremarkable. Right kidney measures 10.3 x 4.2 x 4.4 cm. Impression: Nonvisualization pancreas. Cholelithiasis without cholecystitis or biliary distention. - Will need OP f/u with GS - consider ERCP - consider GS consult - CBC reviewed Code(s): K80.20 - CALCULUS OF GALLBLADDER W/O CHOLECYSTITIS W/O OBSTRUCTION (4) Pulmonary HTN Current Visit: Yes Status: Acute Assessment & Plan: - As seen on chest CT - Echo reviewed - RA 93% - Follows Dr. Plasencia Code(s): I27.20 - PULMONARY HYPERTENSION, UNSPECIFIED (5) HTN (hypertension) Current Visit: Yes Status: Chronic Assessment & Plan: -stable continue home meds Code(s): I10 - ESSENTIAL (PRIMARY) HYPERTENSION (6) Rheumatoid arthritis Current Visit: Yes Status: Chronic Assessment & Plan: -noted Code(s): M06.9 - RHEUMATOID ARTHRITIS, UNSPECIFIED (7) Wound of left ankle Current Visit: Yes Status: Chronic Assessment & Plan: -see cellulitis of LE plan Code(s): S91.002A - UNSPECIFIED OPEN WOUND, LEFT ANKLE, INITIAL ENCOUNTER (8) Open wound of left heel Current Visit: Yes Status: Chronic Assessment & Plan: -see cellulitis of LE plan Code(s): S91.302A - UNSPECIFIED OPEN WOUND, LEFT FOOT, INITIAL ENCOUNTER (9) Obesity (BMI 30.0-34.9) Current Visit: Yes Status: Chronic Assessment & Plan: - advised diet ad exercise control Code(s): E66.811 - OBESITY, CLASS 1 (10) Ground glass opacity present on imaging of lung Current Visit: Yes Status: Acute Assessment & Plan: - as seen on CT chest: IMPRESSION: 1. 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 2. Bilateral lung ground glass nodules. 3. Multiple gallbladder stones. Dilated CBD measures 9 mm in caliber for further evaluation by MRCP. 4. The dilated pulmonary trunk measures 34 mm, suggesting of pulmonary hypertension, clinical correlation is needed. - will need OP f/u with Pulm Code(s): R91.8 - OTHER NONSPECIFIC ABNORMAL FINDING OF LUNG FIELD (11) Diastolic heart failure Current Visit: Yes Status: Acute Assessment & Plan: - as seen on Echo Severe LVH diastolic dysfunction - EF 77% - Will need cardiology OP f/u Code(s): I50.30 - UNSPECIFIED DIASTOLIC (CONGESTIVE) HEART FAILURE Code(s): I50.30 - UNSPECIFIED DIASTOLIC (CONGESTIVE) HEART FAILURE (12) Neuropathy involving both lower extremities Current Visit: Yes Status: Chronic Assessment & Plan: - Gabapentin increased 04/15 to 300mg TID - Pain improving - pt states pain feels like burning sensation on bottoms of feet - Consider increasing medication VTE: Lovenox PPI: Protonix Dispo: 3-4 days Code: full code Next of KIN: daughter Code(s): G57.93 - UNSPECIFIED MONONEUROPATHY OF BILATERAL LOWER LIMBS
[2024-04-16] MEDS ORDERED: Docusate Sodium 100 MG PO PRN (10:50)
--- NOTE | 2024-04-16 16:21 | PCM.NOTE ---
Date and Time: 04/16/24 1620 Subjective Assessment: doing well at bedside. daughter present. Physical Exam - Narrative Narrative Physical Exam: Podiatry Physical Exam Objective Data Vital Signs: Vital Signs - 24 hr Temp Pulse Resp BP Pulse Ox 04/16/24 16:00 97.8 F 86 16 107/59 98 04/16/24 12:02 98.1 F 84 16 115/55 93 L 04/16/24 07:08 97.9 F 85 16 144/68 94 L 04/16/24 05:00 97.7 F 95 H 20 135/68 93 L 04/15/24 23:24 97.6 F 103 H 20 104/55 95 04/15/24 20:00 97.5 F 114 H 21 125/79 92 L Pain Assessment - Last Documented Pain Intensity 0 Pain Scale Used 0-10 Pain Scale Intake and Output: Intake & Output 04/14/24 04/15/24 04/16/24 04/17/24 11:59 11:59 11:59 11:59 Intake Total 580 1420 3863 240 Output Total 900 1100 1650 200 Balance -447 778 0421 40 Weight 77.1 kg 76.8 kg 76.8 kg Lab Results: Lab Results-Last 24 Hours 04/16/24 04/16/24 Range/Units 05:30 05:30 WBC 7.5 (3.98-10.04) x10^3/uL RBC 3.20 L (3.93-5.22) x10^6/uL Hgb 9.6 L (11.2-15.7) g/dL Hct 31.4 L (34.1-44.9) % MCV 98.1 H (79.4-94.8) fL MCH 30.0 (25.6-32.2) pg MCHC 30.6 L (32.2-35.5) g/dL RDW 13.2 (11.7-14.4) % Plt Count 455 H (182-369) x10^3/uL MPV 9.6 (9.4-12.3) fL Sodium 136 (135-145) mmol/L Potassium 4.2 (3.5-5.1) mmol/L Chloride 105 (98-107) mmol/L Carbon Dioxide 26 (22-30) mmol/L Anion Gap 9.4 (5-15) MEQ/L BUN 25 H (7-17) mg/dL Creatinine 0.92 (0.52-1.04) mg/dL Estimated GFR 65.3 ML/MIN Glucose 117 H (74-106) mg/dL Calcium 8.8 (8.4-10.2) mg/dL Total Bilirubin 0.50 (0.2-1.3) mg/dL AST 25 (14-36) U/L ALT 15 (0-35) U/L Alkaline Phosphatase 61 (38-126) U/L Serum Total Protein 6.5 (6.3-8.2) g/dL Albumin 3.5 (3.5-5.0) g/dL Radiology Exams: Radiology Procedures Category Date Time Status MRI LOWER EXT W/O CONTRAST [MRI] Routine Exams 04/15/24 07:49 Completed MRI UPPER EXT JOINT W/O CONTRA [MRI] Routine Exams 04/15/24 07:51 Completed PICC LINE PLACEMENT Routine Exams 04/17/24 08:00 Ordered Multi-Disciplinary Progress Notes: Multi-Disciplinary Progress Notes 04/16/24 13:26 Case Management Note by Gisele Ann PATIENT CONTINUE TO PLAN TO TRANSITION TO [facility] AT THIS TIME THEY HAVE ACCEPTED AND WAS UPDATED ON PATIENT'S CURRENT PLAN OF CARE UPDATED CLINICALS FAXED Initialized on 04/16/24 13:26 - END OF NOTE 04/16/24 08:53 Pharmacy Note by Quinn Wright Gentamicin dosed at 160mg iv q18h. Will order levels after 3 doses given. Initialized on 04/16/24 08:53 - END OF NOTE Assessment/Plan (1) Cellulitis of left lower extremity Current Visit: Yes Status: Acute Assessment & Plan: Inital patient examination and evaluation Radiographs reviewed and discussed with patient- MRI obtain to better assess. No indications of bone infection seen as evidenced with no signs of T1 drop out or T2 uptake. Will monitor for now. IV abx per Medicine team Pain control - as prescribed wound debridement preformed to the left ankle Unna boot applied for venous insufficiency. will follow with daily wet to dry santyl dressings. Code(s): L03.116 - CELLULITIS OF LEFT LOWER LIMB (2) Cellulitis of right index finger Current Visit: Yes Status: Acute Code(s): L03.011 - CELLULITIS OF RIGHT FINGER (3) Obesity (BMI 30.0-34.9) Current Visit: Yes Status: Chronic Code(s): E66.811 - OBESITY, CLASS 1 (4) Open wound of left heel Current Visit: Yes Status: Chronic Code(s): S91.302A - UNSPECIFIED OPEN WOUND, LEFT FOOT, INITIAL ENCOUNTER (5) Rheumatoid arthritis Current Visit: Yes Status: Chronic Code(s): M06.9 - RHEUMATOID ARTHRITIS, UNSPECIFIED (6) Wound of left ankle Current Visit: Yes Status: Chronic Code(s): S91.002A - UNSPECIFIED OPEN WOUND, LEFT ANKLE, INITIAL ENCOUNTER (7) Pressure ulcer of foot Current Visit: No Status: Acute Code(s): L89.899 - PRESSURE ULCER OF OTHER SITE, UNSPECIFIED STAGE (8) Wound exudate without odor Current Visit: No Status: Acute Code(s): [id number] -
--- NOTE | 2024-04-16 16:23 | PCM.NOTE ---
Date and Time: 04/16/24 1622 Subjective Assessment: Doing well today. deysi present at bedside today. Physical Exam - Narrative Narrative Physical Exam: Podiatry Physical Exam Objective Data Vital Signs: Vital Signs - 24 hr Temp Pulse Resp BP Pulse Ox 04/16/24 16:00 97.8 F 86 16 107/59 98 04/16/24 12:02 98.1 F 84 16 115/55 93 L 04/16/24 07:08 97.9 F 85 16 144/68 94 L 04/16/24 05:00 97.7 F 95 H 20 135/68 93 L 04/15/24 23:24 97.6 F 103 H 20 104/55 95 04/15/24 20:00 97.5 F 114 H 21 125/79 92 L Pain Assessment - Last Documented Pain Intensity 0 Pain Scale Used 0-10 Pain Scale Intake and Output: Intake & Output 04/14/24 04/15/24 04/16/24 04/17/24 11:59 11:59 11:59 11:59 Intake Total 580 1420 3863 240 Output Total 900 1100 1650 200 Balance -460 091 5225 40 Weight 77.1 kg 76.8 kg 76.8 kg Lab Results: Lab Results-Last 24 Hours 04/16/24 04/16/24 Range/Units 05:30 05:30 WBC 7.5 (3.98-10.04) x10^3/uL RBC 3.20 L (3.93-5.22) x10^6/uL Hgb 9.6 L (11.2-15.7) g/dL Hct 31.4 L (34.1-44.9) % MCV 98.1 H (79.4-94.8) fL MCH 30.0 (25.6-32.2) pg MCHC 30.6 L (32.2-35.5) g/dL RDW 13.2 (11.7-14.4) % Plt Count 455 H (182-369) x10^3/uL MPV 9.6 (9.4-12.3) fL Sodium 136 (135-145) mmol/L Potassium 4.2 (3.5-5.1) mmol/L Chloride 105 (98-107) mmol/L Carbon Dioxide 26 (22-30) mmol/L Anion Gap 9.4 (5-15) MEQ/L BUN 25 H (7-17) mg/dL Creatinine 0.92 (0.52-1.04) mg/dL Estimated GFR 65.3 ML/MIN Glucose 117 H (74-106) mg/dL Calcium 8.8 (8.4-10.2) mg/dL Total Bilirubin 0.50 (0.2-1.3) mg/dL AST 25 (14-36) U/L ALT 15 (0-35) U/L Alkaline Phosphatase 61 (38-126) U/L Serum Total Protein 6.5 (6.3-8.2) g/dL Albumin 3.5 (3.5-5.0) g/dL Radiology Exams: Radiology Procedures Category Date Time Status MRI LOWER EXT W/O CONTRAST [MRI] Routine Exams 04/15/24 07:49 Completed MRI UPPER EXT JOINT W/O CONTRA [MRI] Routine Exams 04/15/24 07:51 Completed PICC LINE PLACEMENT Routine Exams 04/17/24 08:00 Ordered Multi-Disciplinary Progress Notes: Multi-Disciplinary Progress Notes 04/16/24 13:26 Case Management Note by Gisele Ann PATIENT CONTINUE TO PLAN TO TRANSITION TO [facility] AT THIS TIME THEY HAVE ACCEPTED AND WAS UPDATED ON PATIENT'S CURRENT PLAN OF CARE UPDATED CLINICALS FAXED Initialized on 04/16/24 13:26 - END OF NOTE 04/16/24 08:53 Pharmacy Note by Quinn Wright Gentamicin dosed at 160mg iv q18h. Will order levels after 3 doses given. Initialized on 04/16/24 08:53 - END OF NOTE Assessment/Plan (1) Cellulitis of left lower extremity Current Visit: Yes Status: Acute Assessment & Plan: Inital patient examination and evaluation Radiographs reviewed and discussed with patient- MRI negative IV abx per Medicine team Pain control - as prescribed wound debridement not preformed today. Unna boot applied for venous insufficiency. will follow with daily wet to dry santyl dressings. Code(s): L03.116 - CELLULITIS OF LEFT LOWER LIMB (2) Cellulitis of right index finger Current Visit: Yes Status: Acute Code(s): L03.011 - CELLULITIS OF RIGHT FINGER (3) Obesity (BMI 30.0-34.9) Current Visit: Yes Status: Chronic Code(s): E66.811 - OBESITY, CLASS 1 (4) Open wound of left heel Current Visit: Yes Status: Chronic Code(s): S91.302A - UNSPECIFIED OPEN WOUND, LEFT FOOT, INITIAL ENCOUNTER (5) Rheumatoid arthritis Current Visit: Yes Status: Chronic Code(s): M06.9 - RHEUMATOID ARTHRITIS, UNSPECIFIED (6) Wound of left ankle Current Visit: Yes Status: Chronic Code(s): S91.002A - UNSPECIFIED OPEN WOUND, LEFT ANKLE, INITIAL ENCOUNTER (7) Pressure ulcer of foot Current Visit: No Status: Acute Code(s): L89.899 - PRESSURE ULCER OF OTHER SITE, UNSPECIFIED STAGE (8) Wound exudate without odor Current Visit: No Status: Acute Code(s): [id number] -
[2024-04-17 05:56] LABS: ALBUMIN 3.3 g/dL (3.5-5.0); ANION GAP 10.1 MEQ/L (5-15); BILIRUBIN,TOTAL 0.4 mg/dL (0.2-1.3); Calcium 9.1 mg/dL (8.4-10.2); Creatinine 1 0.84 mg/dL (0.52-1.04); EST GLOMERULAR FILTRATION RATE 72.9 ML/MIN; Potassium 4.4 mmol/L (3.5-5.1)
[2024-04-17 05:58] LABS: Total Protein 6.1 g/dL (6.3-8.2)
[2024-04-17 06:00] LABS: Hematocrit 30.7 % (34.1-44.9); Hemoglobin 9.5 g/dL (11.2-15.7); Mean Cell Volume 99.4 fL (79.4-94.8); Mean Corpuscular Hemoglobin 30.7 pg (25.6-32.2); Mean Corpuscular Hgb Concent. 30.9 g/dL (32.2-35.5); Mean Platelet Volume 10.5 fL (9.4-12.3); Platelet Count 352 x10^3/uL (182-369); Red Blood Count 3.09 x10^6/uL (3.93-5.22); Red Cell Distribution Width 13.4 % (11.7-14.4); White Blood Count 6.2 x10^3/uL (3.98-10.04)
[2024-04-17 06:02] LABS: INR 0.97 (0.8-3.0); PROTIME 10.6 SECONDS (9.4-12.5); PTT 24.9 SECONDS (25.1-36.5)
--- NOTE | 2024-04-17 11:01 | PCM.NOTE ---
Date and Time: 04/17/24 1101 Subjective Assessment: 04/14/24 is a 73 year old female with a history of old CVA (on Plavix and ASA 81 mg) and atrial fibrillation. She presented on 04/13/24 with c/o new onset 4 hours prior to admission shortness of breath, and intermittent burning/tingling in her left leg with episodes lasting up to 1 hour and intensity of 8/10. Pt denies any recent trauma. Pt states she has had an ulcer on her left lower leg for the past 10 months after a stroke with left sided weakness and has had a dressing change twice weekly during this period. Pt also states her right index finger became red, swollen and hot 2 days ago, came to [facility] ER and was placed on bactrim & prednisone w/o improvement. She follows the wound care center at [facility] and also has HHC with Cathy Boyce RN for wound care. She was started on clindamycin IV for cellulitis and podiatry consulted. Venous duplex of LLE negative for DVT. Chest CT completed in ER and showed pulm HTN- an echo was ordered. IV fluids stopped. BC x2, wound culture, and UC all pending. CT chest showed: The stomach is seen herniated and located at the posterior aspect of the left side of the chest with rotation of the stomach along its long axis, suggestive of a sliding hiatus hernia associated with a rolling hiatus hernia. Bilateral lung ground glass nodules. Multiple gallbladder stones. Dilated CBD measures 9 mm in caliber for further evaluation by MRCP. The dilated pulmonary trunk measures 34 mm, suggesting of pulmonary hypertension, clinical correlation is needed. GB US ordered for further eval of dilated CBD- will consider MRCP. Pt denies any abd pain N/V until abd. palpated. Consider surgery consult. She denies any further concerns at this time. 04/15/24 Pt resting in bed. XR of right hand, left ankle and and left foot reviewed and appears she may have osteomyelitis. MRI's ordered for further evaluation. Continue Clindamycin IV. Wound culture gram negative and sensitivity pending. US of gallbladder from yesterday shows mod distension of gallbladder. She has no c/o abd pain. Pt can F/U OP with GS for this. IVF started for ANDIE. She c/o right index finger pain and edema. She feels she needs her gabapentin dose increased as she has burning pain BLLE. Gabapentin increased to 300mg TID. Discussed side effects of medication including sedation and she reports no hx of this in the past. Podiatry evaluation pending. Plan is for pt to d/c to [facility] at d/c when ready. She denies CP, SOB, abd. pain, N/V/D. 04/16/24 Pt resting in bed. Ortho consulted for osteomyelitis of Right index finger seen on MRI. Plan is for pt have amputation Sunday of index finger. Will hold Pletal and Plavix day prior. Left ankle culture came back + for Pseudomonas. IV antibiotic changed to Gentamycin per sensitivity results. Podiatry continues to follow LLE wounds. She denies any further concerns at this time. 04/17/24 Pt resting in the chair. She is scheduled for amputation of right index finger tomorrow. Plan is to d/c to [facility] when ready. Continue IV antibiotics. She denies any further concerns at this time. - Review of Systems Constitutional: No Fever, No Chills Eyes: No Symptoms Ears, Nose, & Throat: No Symptoms Respiratory: No Cough, No Short Of Breath Cardiac: No Chest Pain, No Edema, No Syncope Abdominal/Gastrointestinal: No Abdominal Pain, No Nausea, No Vomiting, No Diarrhea Genitourinary Symptoms: No Dysuria Musculoskeletal: No Back Pain, No Neck Pain Skin: Other (LLE wrapped), No Rash Neurological: No Dizziness, No Focal Weakness, No Sensory Changes Psychological: No Symptoms Endocrine: No Symptoms Hematologic/Lymphatic: No Symptoms Immunological/Allergic: No Symptoms Objective Exam General Appearance: no apparent distress, alert, obese Neurologic Exam: alert, oriented x 3, cooperative, normal mood/affect, nml cerebellar function, sensation nml, No motor deficits Skin Exam: normal color, warm, dry, other (LLE wrapped) Wound Assessment: Skin/Wound Assessment Wound/Incision Assessment Start: 04/13/24 20:00 Text: Status: Active Freq: Q6H Protocol: Document 04/17/24 08:00 MITZY (Rec: 04/17/24 08:36 MITZY [id number]) Wound/Incision Assessment Left Lower Anterior Leg-proximal Wound Assessment Shift Assessment Wound Type CELLULITIS/ULCERATION Wound Stage Non Pressure Wound Dressing Status Dry & Intact Drainage Amount None Comment DR. STEINER DRESSING, CLEAN, DRY AND INTACT Left Lower Anterior Leg-medial Wound Assessment Shift Assessment Wound Type CELLULITIS/ULCERATION Wound Stage Non Pressure Wound Dressing Status Dry & Intact Drainage Amount None Comment DR. STEINER DRESSING, CLEAN, DRY AND INTACT Left Lower Anterior Leg-distal Wound Assessment Shift Assessment Wound Type CELLULITIS/ULCERATION Wound Stage Non Pressure Wound Dressing Status Dry & Intact Drainage Amount None Comment DR. STEINER DRESSING, CLEAN, DRY AND INTACT Right hand, 2nd finger Wound Assessment Shift Assessment Wound Type Burn Wound Stage Non Pressure Wound General Appearance Open to air Comment MODERATE EDEMA, WARM TO THE TOUCH Right Buttock Wound Assessment Shift Assessment Wound Type Pressure Ulcer Wound Stage Stage II General Appearance Open to air Comment WILL APPLY BARRIER CREAM Eye Exam: PERRL, EOMI, eyes nml inspection Ears, Nose, Throat Exam: normal ENT inspection, pharynx normal, moist mucous membranes Neck Exam: normal inspection, non-tender, supple, full range of motion Respiratory Exam: normal breath sounds, lungs clear, No respiratory distress Cardiovascular Exam: regular rate/rhythm, normal heart sounds Gastrointestinal/Abdomen Exam: soft, No tenderness, No mass Extremity Exam: normal inspection, normal range of motion Back Exam: normal inspection, normal range of motion, No CVA tenderness, No vertebral tenderness Pelvic Exam: deferred Rectal Exam: deferred Objective Data Vital Signs: Vital Signs - 24 hr Temp Pulse Resp BP Pulse Ox 04/17/24 07:49 97.6 F 76 20 140/75 97 04/17/24 04:00 97.6 F 71 20 146/75 93 L 04/17/24 00:00 97.3 F 87 18 122/57 92 L 04/16/24 20:00 97.5 F 86 20 125/56 92 L 04/16/24 16:00 97.8 F 86 16 107/59 98 04/16/24 12:02 98.1 F 84 16 115/55 93 L Pain Assessment - Last Documented Pain Intensity 8 Pain Scale Used 0-10 Pain Scale Intake and Output: Intake & Output 04/14/24 04/15/24 04/16/24 04/17/24 11:59 11:59 11:59 11:59 Intake Total 580 1420 3863 3515 Output Total 900 1100 1650 2125 Balance -230 631 6655 1390 Weight 77.1 kg 76.8 kg 76.8 kg Lab Results: Lab Results-Last 24 Hours 04/17/24 04/17/24 04/17/24 Range/Units 05:15 05:15 05:15 WBC 6.2 (3.98-10.04) x10^3/uL RBC 3.09 L (3.93-5.22) x10^6/uL Hgb 9.5 L (11.2-15.7) g/dL Hct 30.7 L (34.1-44.9) % MCV 99.4 H (79.4-94.8) fL MCH 30.7 (25.6-32.2) pg MCHC 30.9 L (32.2-35.5) g/dL RDW 13.4 (11.7-14.4) % Plt Count 352 (182-369) x10^3/uL MPV 10.5 (9.4-12.3) fL PT 10.6 (9.4-12.5) SECONDS INR 0.97 (0.8-3.0) APTT 24.9 L (25.1-36.5) SECONDS Sodium 138 (135-145) mmol/L Potassium 4.4 (3.5-5.1) mmol/L Chloride 108 H (98-107) mmol/L Carbon Dioxide 24 (22-30) mmol/L Anion Gap 10.1 (5-15) MEQ/L BUN 22 H (7-17) mg/dL Creatinine 0.84 (0.52-1.04) mg/dL Estimated GFR 72.9 ML/MIN Glucose 101 (74-106) mg/dL Calcium 9.1 (8.4-10.2) mg/dL Total Bilirubin 0.40 (0.2-1.3) mg/dL AST 20 (14-36) U/L ALT 12 (0-35) U/L Alkaline Phosphatase 58 (38-126) U/L Serum Total Protein 6.1 L (6.3-8.2) g/dL Albumin 3.3 L (3.5-5.0) g/dL Radiology Exams: Radiology Procedures Category Date Time Status GUIDE FOR VASCULAR ACCESS [US] Routine Exams 04/17/24 09:35 Ordered PICC LINE PLACEMENT Routine Exams 04/17/24 08:00 Ordered Multi-Disciplinary Progress Notes: Multi-Disciplinary Progress Notes 01/15/25 13:26 Case Management Note by Gisele Ann PATIENT CONTINUE TO PLAN TO TRANSITION TO [facility] AT THIS TIME THEY HAVE ACCEPTED AND WAS UPDATED ON PATIENT'S CURRENT PLAN OF CARE UPDATED CLINICALS FAXED Initialized on 04/16/24 13:26 - END OF NOTE Assessment/Plan (1) Cellulitis of left lower extremity Current Visit: Yes Status: Acute Code(s): L03.116 - CELLULITIS OF LEFT LOWER LIMB (2) Cellulitis of right index finger Current Visit: Yes Status: Acute Code(s): L03.011 - CELLULITIS OF RIGHT FINGER (3) Gallstones Current Visit: Yes Status: Acute Code(s): K80.20 - CALCULUS OF GALLBLADDER W/O CHOLECYSTITIS W/O OBSTRUCTION (4) Pulmonary HTN Current Visit: Yes Status: Acute Code(s): I27.20 - PULMONARY HYPERTENSION, UNSPECIFIED (5) HTN (hypertension) Current Visit: Yes Status: Chronic Code(s): I10 - ESSENTIAL (PRIMARY) HYPERTENSION (6) Rheumatoid arthritis Current Visit: Yes Status: Chronic Code(s): M06.9 - RHEUMATOID ARTHRITIS, UNSPECIFIED (7) Wound of left ankle Current Visit: Yes Status: Chronic Code(s): S91.002A - UNSPECIFIED OPEN WOUND, LEFT ANKLE, INITIAL ENCOUNTER (8) Open wound of left heel Current Visit: Yes Status: Chronic Code(s): S91.302A - UNSPECIFIED OPEN WOUND, LEFT FOOT, INITIAL ENCOUNTER (9) Obesity (BMI 30.0-34.9) Current Visit: Yes Status: Chronic Code(s): E66.811 - OBESITY, CLASS 1 (10) Ground glass opacity present on imaging of lung Current Visit: Yes Status: Acute Code(s): R91.8 - OTHER NONSPECIFIC ABNORMAL FINDING OF LUNG FIELD (11) Diastolic heart failure Current Visit: Yes Status: Acute Code(s): I50.30 - UNSPECIFIED DIASTOLIC (CONGESTIVE) HEART FAILURE (12) Neuropathy involving both lower extremities Current Visit: Yes Status: Chronic Assessment & Plan: (1) Cellulitis of left lower extremity Current Visit: Yes Status: Acute Assessment & Plan: - Clindamycin IV - Probiotics - Venous duplex LLE negative for DVT - CBC reviewed -Xray left foot: IMPRESSION: 1. Diffuse osteopenic changes are seen in the left foot bones. 2. Multifocal lytic areas are visible in the talus, calcaneum and navicular bone. 3. Cortical erosions along the lateral aspects of metatarsal heads of 2nd-5th fingers along with soft tissue haziness. 4. Diffuse surrounding soft tissue thickening is seen around the ankle and lateral aspect of the foot. 5. Imaging appearances are concerning for osteomyelitis. Further evaluation with MRI can be considered if clinically indicated. - XR left ankle: IMPRESSION: 1. Osteopenic changes with multiple patchy lucent areas in the ankle bones, in particular in the talus, navicular, and calcaneum. 2. Marked soft tissue swelling is evident along both sides of the ankle joint with soft tissue edema and haziness. 3. Imaging appearances are concerning for osteomyelitis. Further evaluation with MRI is suggested. 4. Lucent line is noted in the apex of the medial malleolus, could be projectional, possibility of undisplaced fracture cannot be entirely excluded, would recommend clinical correlation for focal tenderness in this region and CT scan/MRI for further evaluation. -Podiatry consult -Patient receives wound care OP with Cathy Boyce at [facility] -Culture drainage -vanessa borders -elevated affected limb - BC x2 pending - MRI of left foot and ankle - CRP 2, ESR 26 04/16 - Left ankle wound culture + for pseudomonas - IV antibiotic changed to Gentamycin pharmacy to dose - PICC line ordered- will be done tomorrow around 10 am - podiatry following - CBC, CMP reviewed - MRI LE: Impression: Lateral ankle and lateral foot subcutaneous soft tissue swelling/edema. Remaining MRI left ankle/foot is negative. 04/17 - CBC, CMP reviewed - Podiatry note reviewed and agree with plan of care - PICC line Code(s): L03.116 - CELLULITIS OF LEFT LOWER LIMB (2) Cellulitis of right index finger Current Visit: Yes Status: Acute Assessment & Plan: -xray right hand 1. Prominent bone destruction involving the distal phalanx of the right index finger with near-complete resorption of the tuft and shaft. Marked surrounding soft tissue swelling along the index finger and thumb. The imaging appearances are concerning for osteomyelitis. Further evaluation with MRI can be considered if clinically indicated. 2. Mild osteoarthritic changes with reduced joint spaces along the first and second metacarpophalangeal joints, and proximal interphalangeal joints. 3. Reduced radiocarpal joint space with sclerosis of the distal radius and calcifications in the radiocarpal/ulnocarpal joints. - MRI pending -Clindamycin IV -Prednisone started- will continue -pain control -culture any drainage -vanessa borders -elevate affected limb -crp, esr reviewed - tramadol for pain Q6 PRN 04/16 - MRI upper extremity: Impression: Diffuse motion artifact. Cellulitis mid to distal 2nd finger. Suspect underlying osteomyelitis middle/distal phalanges and lesser degree head proximal phalanx - Ortho consulted- plan is for amputation Sunday - Per ortho hold pletal and plavix 1 days prior to procedure 04/17 - Stop plavix and pletel Code(s): L03.011 - CELLULITIS OF RIGHT FINGER (3) Gallstones Current Visit: Yes Status: Acute Assessment & Plan: - Chest CT: IMPRESSION: 1. 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 2. Bilateral lung ground glass nodules. 3. Multiple gallbladder stones. Dilated CBD measures 9 mm in caliber for further evaluation by MRCP. 4. The dilated pulmonary trunk measures 34 mm, suggesting of pulmonary hypertension, clinical correlation is needed. - US GB: Pancreas not well-seen due to overlying bowel gas. Visualized gallbladder is moderately distended with multiple tiny gallstones/gravel in the dependent portion. No abnormal gallbladder wall thickening or pericholecystic fluid. Common bile duct measures 5.8 mm. No intrahepatic biliary distention. Remaining visualized liver and right kidney are sonographic unremarkable. Right kidney measures 10.3 x 4.2 x 4.4 cm. Impression: Nonvisualization pancreas. Cholelithiasis without cholecystitis or biliary distention. - Will need OP f/u with GS - consider ERCP - consider GS consult - CBC reviewed Code(s): K80.20 - CALCULUS OF GALLBLADDER W/O CHOLECYSTITIS W/O OBSTRUCTION (4) Pulmonary HTN Current Visit: Yes Status: Acute Assessment & Plan: - As seen on chest CT - Echo reviewed - RA 93% - Follows Dr. Plasencia Code(s): I27.20 - PULMONARY HYPERTENSION, UNSPECIFIED (5) HTN (hypertension) Current Visit: Yes Status: Chronic Assessment & Plan: -stable continue home meds Code(s): I10 - ESSENTIAL (PRIMARY) HYPERTENSION (6) Rheumatoid arthritis Current Visit: Yes Status: Chronic Assessment & Plan: -noted Code(s): M06.9 - RHEUMATOID ARTHRITIS, UNSPECIFIED (7) Wound of left ankle Current Visit: Yes Status: Chronic Assessment & Plan: -see cellulitis of LE plan Code(s): S91.002A - UNSPECIFIED OPEN WOUND, LEFT ANKLE, INITIAL ENCOUNTER (8) Open wound of left heel Current Visit: Yes Status: Chronic Assessment & Plan: -see cellulitis of LE plan Code(s): S91.302A - UNSPECIFIED OPEN WOUND, LEFT FOOT, INITIAL ENCOUNTER (9) Obesity (BMI 30.0-34.9) Current Visit: Yes Status: Chronic Assessment & Plan: - advised diet ad exercise control Code(s): E66.811 - OBESITY, CLASS 1 (10) Ground glass opacity present on imaging of lung Current Visit: Yes Status: Acute Assessment & Plan: - as seen on CT chest: IMPRESSION: 1. 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 2. Bilateral lung ground glass nodules. 3. Multiple gallbladder stones. Dilated CBD measures 9 mm in caliber for further evaluation by MRCP. 4. The dilated pulmonary trunk measures 34 mm, suggesting of pulmonary hypertension, clinical correlation is needed. - will need OP f/u with Pulm Code(s): R91.8 - OTHER NONSPECIFIC ABNORMAL FINDING OF LUNG FIELD (11) Diastolic heart failure Current Visit: Yes Status: Acute Assessment & Plan: - as seen on Echo Severe LVH diastolic dysfunction - EF 77% - Will need cardiology OP f/u Code(s): I50.30 - UNSPECIFIED DIASTOLIC (CONGESTIVE) HEART FAILURE Code(s): I50.30 - UNSPECIFIED DIASTOLIC (CONGESTIVE) HEART FAILURE (12) Neuropathy involving both lower extremities Current Visit: Yes Status: Chronic Assessment & Plan: - Gabapentin increased 04/15 to 300mg TID - Pain improving - pt states pain feels like burning sensation on bottoms of feet - Consider increasing medication VTE: Lovenox PPI: Protonix Dispo: 3-4 days Code: full code Next of KIN: daughter Code(s): G57.93 - UNSPECIFIED MONONEUROPATHY OF BILATERAL LOWER LIMBS Code(s): G57.93 - UNSPECIFIED MONONEUROPATHY OF BILATERAL LOWER LIMBS
[2024-04-17] MEDS: Zanaflex 4 MG PO PRN (11:23)
--- NOTE | 2024-04-17 12:10 | CONS ---
REASON FOR CONSULT: Right index finger pain and swelling. HISTORY: This 73-year-old female was admitted on 04/13 with new-onset shortness of breath, burning and tingling in left lower extremity. No history of recent trauma. Patient had a stroke earlier this year and was hospitalized at [facility]. The stroke affected the left upper and lower extremity. She has had episodes of burning pain in the left lower extremity. She has also developed a burn on the right index finger back in approximately 09/2023. She states that she had periodic episodes of swelling that were treated with oral antibiotics by her PCP. She had a flare-up with increased swelling about 2 weeks ago as well. Since hospitalization, she has had podiatry consult for wounds on her left lower extremity, is on IV antibiotics. Wound cultures have been obtained of her left ankle. Patient does have osteoarthritis affecting multiple small joints of her hands bilaterally. She indicates that the finger has been swollen and painful. She has had no active visible drainage. The x-rays were taken a couple days ago and showed evidence of bony erosive changes in the distal phalanx of the right index finger suggesting possible osteomyelitis versus erosive inflammatory arthropathy. A subsequent MRI has been obtained showing findings more compatible with osteomyelitis. CURRENT MEDICATIONS: Tylenol, Norvasc, aspirin 81 mg daily, vitamin D, Pletal 100 mg b.i.d., Plavix 75 mg q.a.m., Benadryl 25 mg every 6 hours as needed, Colace, Lovenox 40 mg subcutaneous daily, gabapentin 300 mg 3 times a day, gentamicin, acidophilus, lisinopril 20 mg daily, metoprolol 25 mg daily, Zofran as needed, Protonix 20 mg daily, prednisone 20 mg daily, Zocor 40 mg daily, tizanidine 2 mg p.r.n., tramadol 50 mg 4 times a day as needed. REVIEW OF SYSTEMS: Negative for fever, chills, ocular symptoms, ENT symptoms. Negative for shortness of breath, cough, chest pain, syncope, abdominal pain, nausea, vomiting, diarrhea, dysuria. LABORATORY DATA AND TESTS: WBC 7.5, hemoglobin 9.6, hematocrit 31.4, platelets 455. PT 11.3 on 04/13, INR 1.04 on 04/13. Chemistries 04/16: Sodium 136, potassium 4.2, chloride 105, carbon dioxide 26, anion gap 9.4, BUN 25, creatinine 0.92, glucose 117. X-rays, right hand: Erosive degenerative changes noted in the DIP and PIP joints of the long, ring, and small fingers. Degenerative changes noted at right first CMC joint, right second MP joint. Extensive erosion of distal phalanx of right index finger with near complete destruction of that bone. MRI, right hand, shows findings within right index finger compatible with osteomyelitis including bony destruction of the distal phalanx and mild edema of the middle phalanx. PHYSICAL EXAMINATION: GENERAL: Awake, alert, oriented female in no acute distress. EXTREMITIES: Right upper extremity exam reveals angular and nodular deformities of the small joints of the right hand affecting DIP and PIP joints of long ring and small finger. There is significant swelling of the right index finger distal phalanx. No open wounds or active drainage. There is thick cornified tissue on the distal volar aspect of the distal phalanx. She cannot flex and extend the DIP joints. IMPRESSION: Destructive changes, right index finger, consistent with osteomyelitis following a 6-month history of recurrent swelling treated with oral antibiotics. I have discussed options with the patient but recommend amputation of the index finger at the level of the middle phalanx. Patient is agreeable. We will discuss timing of surgery with the podiatry service as I have been told there is a possibility that she will need to go to the OR for a debridement procedure.
--- NOTE | 2024-04-17 15:14 | XRAY ---
Indication: Ultrasound guidance for PICC line placement. Initial sonographic imaging of the right upper extremity was performed for localization of patent veins. A patent basilic vein identified above the elbow. Ultrasound guidance was then used for PICC line insertion. Full PICC line insertion is reported separately.
--- NOTE | 2024-04-17 15:16 | XRAY ---
Indication: Long-term IV access and therapy for left leg and right index finger infection. Informed consent obtained. Patient was placed on the fluoroscopic table in a supine position. Initial sonographic imaging of the right upper extremity was performed for localization of patent veins. The right upper extremity was then prepped and draped in sterile fashion. Tourniquet applied. 1% lidocaine plain used for local anesthesia. Using ultrasound guidance and a micropuncture needle, a basilic vein above the elbow was successfully percutaneously cannulized. A floppy tip 0.018 guidewire inserted. Tourniquet released. Needle was exchanged for a 5 Peruvian dilator peel away sheath catheter. Ultimately a 5 Peruvian double-lumen PICC line was inserted over a longer 0.018 guidewire. Catheter and guidewire further advanced and positioned in the distal SVC using fluoroscopic guidance. Guidewire removed. Both ports flushed with heparinized saline. Catheter was secured. Postoperative instructions and orders given. Patient discharged in good condition. Impression: Technically successful right upper extremity PICC line placement using ultrasound and fluoroscopic guidance. No immediate complications. Approximately 2 cc blood loss. Approximately 0.5 minute of fluoroscopy used. Catheter length is 39 cm.
--- NOTE | 2024-04-17 16:26 | PCM.NOTE ---
Date and Time: 04/17/24 1608 Subjective Assessment: progressing well without complication Physical Exam - Narrative Narrative Physical Exam: Podiatry Physical Exam Objective Data Vital Signs: Vital Signs - 24 hr Temp Pulse Resp BP Pulse Ox 04/17/24 11:37 97.7 F 93 H 17 129/63 91 L 04/17/24 07:49 97.6 F 76 20 140/75 97 04/17/24 04:00 97.6 F 71 20 146/75 93 L 04/17/24 00:00 97.3 F 87 18 122/57 92 L 04/16/24 20:00 97.5 F 86 20 125/56 92 L Pain Assessment - Last Documented Pain Intensity 8 Pain Scale Used 0-10 Pain Scale Intake and Output: Intake & Output 04/15/24 04/16/24 04/17/24 04/18/24 11:59 11:59 11:59 11:59 Intake Total 1420 3863 3515 240 Output Total 1100 1650 2125 Balance 320 2213 1390 240 Weight 76.8 kg 80.6 kg Lab Results: Lab Results-Last 24 Hours 04/17/24 04/17/24 04/17/24 Range/Units 05:15 05:15 05:15 WBC 6.2 (3.98-10.04) x10^3/uL RBC 3.09 L (3.93-5.22) x10^6/uL Hgb 9.5 L (11.2-15.7) g/dL Hct 30.7 L (34.1-44.9) % MCV 99.4 H (79.4-94.8) fL MCH 30.7 (25.6-32.2) pg MCHC 30.9 L (32.2-35.5) g/dL RDW 13.4 (11.7-14.4) % Plt Count 352 (182-369) x10^3/uL MPV 10.5 (9.4-12.3) fL PT 10.6 (9.4-12.5) SECONDS INR 0.97 (0.8-3.0) APTT 24.9 L (25.1-36.5) SECONDS Sodium 138 (135-145) mmol/L Potassium 4.4 (3.5-5.1) mmol/L Chloride 108 H (98-107) mmol/L Carbon Dioxide 24 (22-30) mmol/L Anion Gap 10.1 (5-15) MEQ/L BUN 22 H (7-17) mg/dL Creatinine 0.84 (0.52-1.04) mg/dL Estimated GFR 72.9 ML/MIN Glucose 101 (74-106) mg/dL Calcium 9.1 (8.4-10.2) mg/dL Total Bilirubin 0.40 (0.2-1.3) mg/dL AST 20 (14-36) U/L ALT 12 (0-35) U/L Alkaline Phosphatase 58 (38-126) U/L Serum Total Protein 6.1 L (6.3-8.2) g/dL Albumin 3.3 L (3.5-5.0) g/dL Radiology Exams: Radiology Procedures Category Date Time Status GUIDE FOR VASCULAR ACCESS [US] Routine Exams 04/17/24 09:35 Completed PICC LINE PLACEMENT Routine Exams 04/17/24 08:00 Completed Multi-Disciplinary Progress Notes: Multi-Disciplinary Progress Notes 04/17/24 11:55 Case Management Note by Gisele Ann S/W PATIENT- SHE CONTINUES TO TRANSITION TO [facility] AT TIME OF DC. THEY ARE READY FOR PATIENT WHEN MEDICALLY READY Initialized on 04/17/24 11:55 - END OF NOTE Assessment/Plan (1) Cellulitis of left lower extremity Current Visit: Yes Status: Acute Code(s): L03.116 - CELLULITIS OF LEFT LOWER LIMB (2) Cellulitis of right index finger Current Visit: Yes Status: Acute Code(s): L03.011 - CELLULITIS OF RIGHT FINGER (3) Obesity (BMI 30.0-34.9) Current Visit: Yes Status: Chronic Code(s): E66.811 - OBESITY, CLASS 1 (4) Open wound of left heel Current Visit: Yes Status: Chronic Assessment & Plan: patient examination and evaluation Radiographs reviewed and discussed with patient- MRI negative IV abx per Medicine team Pain control - as prescribed wound debridement preformed today. Unna boot applied for venous insufficiency. will follow with daily wet to dry santyl dressings. Code(s): S91.302A - UNSPECIFIED OPEN WOUND, LEFT FOOT, INITIAL ENCOUNTER (5) Rheumatoid arthritis Current Visit: Yes Status: Chronic Code(s): M06.9 - RHEUMATOID ARTHRITIS, UNSPECIFIED (6) Wound of left ankle Current Visit: Yes Status: Chronic Code(s): S91.002A - UNSPECIFIED OPEN WOUND, LEFT ANKLE, INITIAL ENCOUNTER (7) Pressure ulcer of foot Current Visit: No Status: Acute Code(s): L89.899 - PRESSURE ULCER OF OTHER SITE, UNSPECIFIED STAGE (8) Wound exudate without odor Current Visit: No Status: Acute Code(s): BDF1779 -
[2024-04-18] MEDS: Sodium Chloride 0.9% 10 ML FLUSH Syringe IV PRN (05:00)
[2024-04-18 05:31] LABS: Hematocrit 30.8 % (34.1-44.9); Hemoglobin 9.5 g/dL (11.2-15.7); Mean Cell Volume 98.4 fL (79.4-94.8); Mean Corpuscular Hemoglobin 30.4 pg (25.6-32.2); Mean Corpuscular Hgb Concent. 30.8 g/dL (32.2-35.5); Mean Platelet Volume 9.5 fL (9.4-12.3); Platelet Count 403 x10^3/uL (182-369); Red Blood Count 3.13 x10^6/uL (3.93-5.22); Red Cell Distribution Width 13.2 % (11.7-14.4); White Blood Count 7.1 x10^3/uL (3.98-10.04)
[2024-04-18 05:55] LABS: ALBUMIN 3.1 g/dL (3.5-5.0); ANION GAP 7.6 MEQ/L (5-15); BILIRUBIN,TOTAL 0.4 mg/dL (0.2-1.3); Calcium 8.8 mg/dL (8.4-10.2); Creatinine 1 0.71 mg/dL (0.52-1.04); EST GLOMERULAR FILTRATION RATE 89.2 ML/MIN; Potassium 4.1 mmol/L (3.5-5.1)
[2024-04-18 08:00] VITALS: RESP 17; O2SAT 93
[2024-04-18] MEDS ORDERED: propofoL IV ONE (08:18)
[2024-04-18] MEDS ORDERED: SUBLIMAZE 100 MCG/2 ML ONE (08:18)
[2024-04-18] MEDS ORDERED: Versed 2 MG/2 ML Injection ONE (08:18)
[2024-04-18] MEDS: Lactated Ringers 1,000 ML IV SCH (08:20)
[2024-04-18] MEDS ORDERED: Marcaine Mpf 0.5% Vial 30 Ml ONE (08:34)
[2024-04-18] MEDS ORDERED: PHENYLEPHRINE HCL ONE (08:49)
[2024-04-18] MEDS ORDERED: BACIGUENT 30 GM ONE (09:11)
[2024-04-18] MEDS: TROUGH DRUG LEVELS IJ ONE (11:28)
[2024-04-18] MEDS: PEAK DRUG LEVELS IJ ONE (11:28)
[2024-04-18 12:18] VITALS: BP 152/78; PULSE 67; TEMP 97.6
--- NOTE | 2024-04-18 12:37 | PCM.DS ---
Discharge Summary Date of Admission: 04/14/24 12:20 Date of Discharge: 04/18/24 Admitting Physician: THAI CONTRERAS MD Consults: Consults on Case 04/14/24 08:07 Consult Podiatry ROUTINE 04/15/24 16:30 Consult Ortho ROUTINE Primary Care Provider: EDILBERTO PULLIAM Allergies Allergies influenza virus vaccine qs 9830-2153 (36 mos, up) [From Fluarix Quad] Allergy (Verified 12/27/23 01:37) Penicillins Allergy (Verified 12/27/23 01:37) morphine Adverse Reaction (Verified 04/13/24 08:28) states makes her wild Hospital Summary - Hospital Course Hospital Course: 04/14/24 is a 73 year old female with a history of old CVA (on Plavix and ASA 81 mg) and atrial fibrillation. She presented on 04/13/24 with c/o new onset 4 hours prior to admission shortness of breath, and intermittent burning/tingling in her left leg with episodes lasting up to 1 hour and intensity of 8/10. Pt denies any recent trauma. Pt states she has had an ulcer on her left lower leg for the past 10 months after a stroke with left sided weakness and has had a dressing change twice weekly during this period. Pt also states her right index finger became red, swollen and hot 2 days ago, came to [facility] ER and was placed on bactrim & prednisone w/o improvement. She follows the wound care center at [facility] and also has HHC with Cathy Boyce RN for wound care. She was started on clindamycin IV for cellulitis and podiatry consulted. Venous duplex of LLE negative for DVT. Chest CT completed in ER and showed pulm HTN- an echo was ordered. IV fluids stopped. BC x2, wound culture, and UC all pending. CT c hest showed: The stomach is seen herniated and located at the posterior aspect of the left side of the chest with rotation of the stomach along its long axis, suggestive of a sliding hiatus hernia associated with a rolling hiatus hernia. Bilateral lung ground glass nodules. Multiple gallbladder stones. Dilated CBD measures 9 mm in caliber for further evaluation by MRCP. The dilated pulmonary trunk measures 34 mm, suggesting of pulmonary hypertension, clinical correlation is needed. GB US ordered for further eval of dilated CBD- will consider MRCP. Pt denies any abd pain N/V until abd. palpated. Consider surgery consult. She denies any further concerns at this time. 04/15/24 Pt resting in bed. XR of right hand, left ankle and and left foot reviewed and appears she may have osteomyelitis. MRI's ordered for further evaluation. Continue Clindamycin IV. Wound culture gram negative and sensitivity pending. US of gallbladder from yesterday shows mod distension of gallbladder. She has no c/o abd pain. Pt can F/U OP with GS for this. IVF started for ANDIE. She c/o right index finger pain and edema. She feels she needs her gabapentin dose increased as she has burning pain BLLE. Gabapentin increased to 300mg TID. Discussed side effects of medication including sedation and she reports no hx of this in the past. Podiatry evaluation pending. Plan is for pt to d/c to [facility] at d/c when ready. She denies CP, SOB, abd. pain, N/V/D. 04/16/24 Pt resting in bed. Ortho consulted for osteomyelitis of Right index finger seen on MRI. Plan is for pt have amputation Sunday of index finger. Will hold Pletal and Plavix day prior. Left ankle culture came back + for Pseudomonas. IV antibiotic changed to Gentamycin per sensitivity results. Podiatry continues to follow LLE wounds. She denies any further concerns at this time. 04/17/24 Pt resting in the chair. She is scheduled for amputation of right index finger tomorrow. [facility] Continue IV antibiotics. She denies any further concerns at this time. 04/18/24 Pt resting in bed. Amputation of right index finger this AM with ortho. Will continue IV and PO antibiotics OP at rehab.She will f/u with ortho, podiatry, and surgery OP. She denies any further concerns at this time. Plan is to D/C to [facility] today. - Vitals & Intake/Output Vital Signs: Vital Signs Temperature 97.6 F 04/18/24 12:00 Pulse Rate 67 04/18/24 12:00 Respiratory Rate 17 04/18/24 12:00 Blood Pressure 152/78 04/18/24 12:00 O2 Sat by Pulse Oximetry 93 L 04/18/24 12:00 Intake & Output: Intake & Output 04/16/24 04/17/24 04/18/24 04/19/24 11:59 11:59 11:59 11:59 Intake Total 3860 3515 1440 Output Total 1652 2644 2700 Balance 2213 1390 -1260 Weight 80.6 kg 78.5 kg - Lab Result Diagrams: 04/18/24 05:25 04/18/24 05:25 Lab Results-Last 24 Hrs: Lab Results-Last 24 Hours 04/18/24 04/18/24 04/18/24 Range/Units 05:25 05:25 10:18 WBC 7.1 (3.98-10.04) x10^3/uL RBC 3.13 L (3.93-5.22) x10^6/uL Hgb 9.5 L (11.2-15.7) g/dL Hct 30.8 L (34.1-44.9) % MCV 98.4 H (79.4-94.8) fL MCH 30.4 (25.6-32.2) pg MCHC 30.8 L (32.2-35.5) g/dL RDW 13.2 (11.7-14.4) % Plt Count 403 H (182-369) x10^3/uL MPV 9.5 (9.4-12.3) fL Sodium 138 (135-145) mmol/L Potassium 4.1 (3.5-5.1) mmol/L Chloride 109 H (98-107) mmol/L Carbon Dioxide 26 (22-30) mmol/L Anion Gap 7.6 (5-15) MEQ/L BUN 16 (7-17) mg/dL Creatinine 0.71 (0.52-1.04) mg/dL Estimated GFR 89.2 ML/MIN Glucose 102 (74-106) mg/dL Calcium 8.8 (8.4-10.2) mg/dL Total Bilirubin 0.40 (0.2-1.3) mg/dL AST 20 (14-36) U/L ALT 12 (0-35) U/L Alkaline Phosphatase 59 (38-126) U/L Serum Total Protein 6.0 L (6.3-8.2) g/dL Albumin 3.1 L (3.5-5.0) g/dL Gentamicin Trough 1.28 (0.6-2.0) ug/mL Micro Results-Entire Visit: Microbiology 04/18/24 09:01 Acid Fast Bacilli (AFB) Probe - Final Finger - R First(Index) Not Reportable M.tuberculosis Complex DNA Probe - Final Not Reportable Mycobact. avium Complex DNA Probe - Final Not Reportable Mycobacterium kansasii DNA Probe - Final Not Reportable Mycobacterium gordanae DNA Probe - Final Not Reportable Mycobacterium DNA Probe - Final Not Reportable Organism ID (Sequencing) - Final Not Reportable Organism ID (Sequencing 2)(QUIQUE) - Final Not Reportable AFB Susceptibility Testing - Final Not Reportable 04/13/24 08:54 Blood Culture - Final Blood NO GROWTH 04/13/24 08:45 Blood Culture - Final Blood NO GROWTH 04/13/24 16:23 Wound Culture - Final Ankle - Left Pseudomonas Aeruginosa 04/13/24 09:30 Urine Culture - Final Catherized <10K NORMAL SKIN MATI PROBABLE SKIN CONTAMINANT - Radiology Exams Ordered Rad Exams-Entire Visit: Radiology Procedures Category Date Time Status GUIDE FOR VASCULAR ACCESS [US] Routine Exams 04/17/24 09:35 Completed PICC LINE PLACEMENT Routine Exams 04/17/24 08:00 Completed - Procedures and Test Procedures and Tests throughout Hospitalization: Therapy Orders & Screens 04/13/24 14:38 EKG REPEAT IN AM Comment: Discharge Exam General Appearance: no apparent distress, alert Neurologic Exam: alert, oriented x 3, cooperative, normal mood/affect, nml cerebellar function, sensation nml, No motor deficits Eye Exam: PERRL, EOMI, eyes nml inspection Ears, Nose, Throat Exam: normal ENT inspection, pharynx normal, moist mucous membranes Neck Exam: normal inspection, non-tender, supple, full range of motion Respiratory Exam: normal breath sounds, lungs clear, No respiratory distress Cardiovascular Exam: regular rate/rhythm, normal heart sounds Gastrointestinal/Abdomen Exam: soft, No tenderness, No mass Pelvic Exam: deferred Rectal Exam: deferred Back Exam: normal inspection, normal range of motion, No CVA tenderness, No vertebral tenderness Extremity Exam: normal inspection, normal range of motion, other (RLE wrapped, Right index finger wrapped) Skin Exam: normal color, warm, dry Wound Assessment: Skin/Wound Assessment Wound/Incision Assessment Start: 04/13/24 20:00 Text: Status: Active Freq: Q6H Protocol: Document 04/18/24 08:00 RB (Rec: 04/18/24 08:53 RB [id number]) Wound/Incision Assessment Left Lower Anterior Leg-proximal Wound Assessment Shift Assessment Wound Type cellulitis/ulceration Wound Stage Non Pressure Wound Dressing Status Dry & Intact Drainage Amount None Comment ROLY BOOT IN PLACE Left Lower Anterior Leg-medial Wound Assessment Shift Assessment Wound Type cellulitis/ulceration Wound Stage Non Pressure Wound Dressing Status Dry & Intact Drainage Amount None Comment ROLY BOOT IN PLACE Left Lower Anterior Leg-distal Wound Assessment Shift Assessment Wound Type cellulitis/ulceration Wound Stage Non Pressure Wound Dressing Status Dry & Intact Drainage Amount None Comment ROLY BOOT IN PLACE- CDI Right hand, 2nd finger Wound Assessment Shift Assessment Wound Type Burn Wound Stage Non Pressure Wound General Appearance Open to air Comment REDNESS AND FLAKING, EDEMA NOTED, WARM TO TOUCH, PT REPORTS NUMBNESS Right Buttock Wound Assessment Shift Assessment Wound Type Pressure Ulcer Wound Stage Stage II General Appearance Open to air Comment ZONC AND BARRIER CREAM APPLIED Wound Photo Photo Taken No Final Diagnosis/Problem List - Final Discharge Diagnosis/Problem (1) Cellulitis of left lower extremity Current Visit: Yes Status: Acute Code(s): L03.116 - CELLULITIS OF LEFT LOWER LIMB (2) Cellulitis of right index finger Current Visit: Yes Status: Acute Code(s): L03.011 - CELLULITIS OF RIGHT FINGER (3) Gallstones Current Visit: Yes Status: Acute Code(s): K80.20 - CALCULUS OF GALLBLADDER W/O CHOLECYSTITIS W/O OBSTRUCTION (4) Pulmonary HTN Current Visit: Yes Status: Acute Code(s): I27.20 - PULMONARY HYPERTENSION, UNSPECIFIED (5) HTN (hypertension) Current Visit: Yes Status: Chronic Code(s): I10 - ESSENTIAL (PRIMARY) HYPERTENSION (6) Rheumatoid arthritis Current Visit: Yes Status: Chronic Code(s): M06.9 - RHEUMATOID ARTHRITIS, UNSPECIFIED (7) Wound of left ankle Current Visit: Yes Status: Chronic Code(s): S91.002A - UNSPECIFIED OPEN WOUND, LEFT ANKLE, INITIAL ENCOUNTER (8) Open wound of left heel Current Visit: Yes Status: Chronic Code(s): S91.302A - UNSPECIFIED OPEN WOUND, LEFT FOOT, INITIAL ENCOUNTER (9) Obesity (BMI 30.0-34.9) Current Visit: Yes Status: Chronic Code(s): E66.811 - OBESITY, CLASS 1 (10) Ground glass opacity present on imaging of lung Current Visit: Yes Status: Acute Code(s): R91.8 - OTHER NONSPECIFIC ABNORMAL FINDING OF LUNG FIELD (11) Diastolic heart failure Current Visit: Yes Status: Acute Code(s): I50.30 - UNSPECIFIED DIASTOLIC (CONGESTIVE) HEART FAILURE (12) Neuropathy involving both lower extremities Current Visit: Yes Status: Chronic Assessment & Plan: (1) Cellulitis of left lower extremity Current Visit: Yes Status: Acute Assessment & Plan: - Clindamycin IV - Probiotics - Venous duplex LLE negative for DVT - CBC reviewed -Xray left foot: IMPRESSION: 1. Diffuse osteopenic changes are seen in the left foot bones. 2. Multifocal lytic areas are visible in the talus, calcaneum and navicular bone. 3. Cortical erosions along the lateral aspects of metatarsal heads of 2nd-5th fingers along with soft tissue haziness. 4. Diffuse surrounding soft tissue thickening is seen around the ankle and lateral aspect of the foot. 5. Imaging appearances are concerning for osteomyelitis. Further evaluation with MRI can be considered if clinically indicated. - XR left ankle: IMPRESSION: 1. Osteopenic changes with multiple patchy lucent areas in the ankle bones, in particular in the talus, navicular, and calcaneum. 2. Marked soft tissue swelling is evident along both sides of the ankle joint with soft tissue edema and haziness. 3. Imaging appearances are concerning for osteomyelitis. Further evaluation with MRI is suggested. 4. Lucent line is noted in the apex of the medial malleolus, could be projectional, possibility of undisplaced fracture cannot be entirely excluded, would recommend clinical correlation for focal tenderness in this region and CT scan/MRI for further evaluation. -Podiatry consult -Patient receives wound care OP with Cathy Boyce at [facility] -Culture drainage -vanessa borders -elevated affected limb - BC x2 pending - MRI of left foot and ankle - CRP 2, ESR 26 04/16 - Left ankle wound culture + for pseudomonas - IV antibiotic changed to Gentamycin pharmacy to dose - PICC line ordered- will be done tomorrow around 10 am - podiatry following - CBC, CMP reviewed - MRI LE: Impression: Lateral ankle and lateral foot subcutaneous soft tissue swelling/edema. Remaining MRI left ankle/foot is negative. 04/17 - CBC, CMP reviewed - Podiatry note reviewed and agree with plan of care - PICC line 04/18 - Continue IV Gentamycin OP - F/U with Podiatry OP Code(s): L03.116 - CELLULITIS OF LEFT LOWER LIMB (2) Cellulitis of right index finger Current Visit: Yes Status: Acute Assessment & Plan: -xray right hand 1. Prominent bone destruction involving the distal phalanx of the right index finger with near-complete resorption of the tuft and shaft. Marked surrounding soft tissue swelling along the index finger and thumb. The imaging appearances are concerning for osteomyelitis. Further evaluation with MRI can be considered if clinically indicated. 2. Mild osteoarthritic changes with reduced joint spaces along the first and second metacarpophalangeal joints, and proximal interphalangeal joints. 3. Reduced radiocarpal joint space with sclerosis of the distal radius and calcifications in the radiocarpal/ulnocarpal joints. - MRI pending -Clindamycin IV -Prednisone started- will continue -pain control -culture any drainage -vanessa borders -elevate affected limb -crp, esr reviewed - tramadol for pain Q6 PRN 04/16 - MRI upper extremity: Impression: Diffuse motion artifact. Cellulitis mid to distal 2nd finger. Suspect underlying osteomyelitis middle/distal phalanges and lesser degree head proximal phalanx - Ortho consulted- plan is for amputation Sunday - Per ortho hold pletal and plavix 1 days prior to procedure 04/17 - Stop plavix and pletel 04/18 - Amputation right index finger today with ortho - per ortho leave bandage for 5 days then changed dressing daily, f/u OP with ortho in 12 days for stitches to be removed. - Started Doxycycline- continue OP - Will follow bone cultures OP Code(s): L03.011 - CELLULITIS OF RIGHT FINGER (3) Gallstones Current Visit: Yes Status: Acute Assessment & Plan: - Chest CT: IMPRESSION: 1. 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 2. Bilateral lung ground glass nodules. 3. Multiple gallbladder stones. Dilated CBD measures 9 mm in caliber for further evaluation by MRCP. 4. The dilated pulmonary trunk measures 34 mm, suggesting of pulmonary hypertension, clinical correlation is needed. - US GB: Pancreas not well-seen due to overlying bowel gas. Visualized gallbladder is moderately distended with multiple tiny gallstones/gravel in the dependent portion. No abnormal gallbladder wall thickening or pericholecystic fluid. Common bile duct measures 5.8 mm. No intrahepatic biliary distention. Remaining visualized liver and right kidney are sonographic unremarkable. Right kidney measures 10.3 x 4.2 x 4.4 cm. Impression: Nonvisualization pancreas. Cholelithiasis without cholecystitis or biliary distention. - Will need OP f/u with GS - consider ERCP - consider GS consult - CBC reviewed Code(s): K80.20 - CALCULUS OF GALLBLADDER W/O CHOLECYSTITIS W/O OBSTRUCTION (4) Pulmonary HTN Current Visit: Yes Status: Acute Assessment & Plan: - As seen on chest CT - Echo reviewed - RA 93% - Follows Dr. Plasencia Code(s): I27.20 - PULMONARY HYPERTENSION, UNSPECIFIED (5) HTN (hypertension) Current Visit: Yes Status: Chronic Assessment & Plan: -stable continue home meds Code(s): I10 - ESSENTIAL (PRIMARY) HYPERTENSION (6) Rheumatoid arthritis Current Visit: Yes Status: Chronic Assessment & Plan: -noted Code(s): M06.9 - RHEUMATOID ARTHRITIS, UNSPECIFIED (7) Wound of left ankle Current Visit: Yes Status: Chronic Assessment & Plan: -see cellulitis of LE plan Code(s): S91.002A - UNSPECIFIED OPEN WOUND, LEFT ANKLE, INITIAL ENCOUNTER (8) Open wound of left heel Current Visit: Yes Status: Chronic Assessment & Plan: -see cellulitis of LE plan Code(s): S91.302A - UNSPECIFIED OPEN WOUND, LEFT FOOT, INITIAL ENCOUNTER (9) Obesity (BMI 30.0-34.9) Current Visit: Yes Status: Chronic Assessment & Plan: - advised diet ad exercise control Code(s): E66.811 - OBESITY, CLASS 1 (10) Ground glass opacity present on imaging of lung Current Visit: Yes Status: Acute Assessment & Plan: - as seen on CT chest: IMPRESSION: 1. 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 2. Bilateral lung ground glass nodules. 3. Multiple gallbladder stones. Dilated CBD measures 9 mm in caliber for further evaluation by MRCP. 4. The dilated pulmonary trunk measures 34 mm, suggesting of pulmonary hypertension, clinical correlation is needed. - will need OP f/u with Pulm Code(s): R91.8 - OTHER NONSPECIFIC ABNORMAL FINDING OF LUNG FIELD (11) Diastolic heart failure Current Visit: Yes Status: Acute Assessment & Plan: - as seen on Echo Severe LVH diastolic dysfunction - EF 77% - Will need cardiology OP f/u Code(s): I50.30 - UNSPECIFIED DIASTOLIC (CONGESTIVE) HEART FAILURE Code(s): I50.30 - UNSPECIFIED DIASTOLIC (CONGESTIVE) HEART FAILURE (12) Neuropathy involving both lower extremities Current Visit: Yes Status: Chronic Assessment & Plan: - Gabapentin increased 04/15 to 300mg TID - Pain improving - pt states pain feels like burning sensation on bottoms of feet - Consider increasing medication Code(s): G57.93 - UNSPECIFIED MONONEUROPATHY OF BILATERAL LOWER LIMBS - Discharge Discharge Date: 04/18/24 ([facility]) Disposition: XFER OTHER Condition: Stable Prescriptions: New Gentamicin 80 mg Premix [Gentamicin 80 mg/50 ml Premix] 160 mg IV Q18H 14 Days #10 iv piggy Doxycycline Hyclate 100 mg [Vibramycin 100 MG] 100 mg PO BID 14 Days #28 tablet Heparin Flush 500 units/5 ml [Heparin Lock Flush 500 Units/5ml Syringe] 5 ml IV UD 10 Days #10 units Tramadol HCl 50 mg [Ultram 50 mg] 50 mg PO QID PRN PRN 3 Days #12 tablet PRN Reason: Pain Clopidogrel Bisulfate [PLAVIX Tablet] 75 mg PO QAM tablet Continue Ondansetron ODT 4 MG [Zofran Odt 4 mg] 4 mg PO Q8HPRN PRN PRN Reason: Nausea Metoprolol Succinate 25 mg PO QAM Lisinopril 20 mg [Zestril 20 MG] 20 mg PO HS Gabapentin 300 mg PO HS Docusate Sodium 100 mg [Docusate Sodium 100 MG] 1 cap PO DAILY PRN PRN PRN Reason: Constipation Atorvastatin Calcium 40 mg PO HS Aspirin [Aspirin EC] 81 mg PO LUNCH Amlodipine Besylate 5 mg [Norvasc 5 mg] 5 mg PO LUNCH Cilostazol 100 mg [Pletal 100 MG] 100 mg PO BID Prednisone 10 mg [Deltasone 10 mg] 10 mg PO TID #12 tablet Pantoprazole 20 mg [Protonix 20MG Tablet] 20 mg PO DAILY PRN PRN PRN Reason: Indigestion Gabapentin [Neurontin ] 100 mg PO BID Cholecalciferol (Vitamin D3) [Vitamin D3] 25 mcg PO QAM Discontinued Clopidogrel Bisulfate [Plavix] 75 mg PO QAM Tizanidine HCl 2 mg PO Q8HPRN PRN PRN Reason: Muscle Spasms Smz/Tmp Ds Tablet [Bactrim Ds Tablet] 1 tab PO Q12H Additional Instructions: SENIOR CARE ORDERS: HEART HEALTHY DIET ROUTINE PICC LINE CARE WOUND CARE ON LEFT LEG FOLLOWS: Pt needs dressing changes every other day. Apply santyl wet-to-dry dressing to wound on left lateral leg. (apply santyl lenin-thick, apply 2 sterile 4x4 gauze moistened with sterile saline, apply 2 dry sterile 4x4 gauze) Wrap leg foot and leg with kerlix to level of tibial tuberosity, then wrap with cast padding to same level. Wrap with coban with moderate (50%) compression to same level. WEIGHTBEARING TO RIGHT HAND TOLERATED DO NOT REMOVE DRESSING RIGHT HAND, REINFORCE IF NEEDED REMOVE RIGHT HAND DRESSING IN 5 DAYS, CLEAN DAILY AND APPLY BAND-AID SEE ATTACHED MED LIST Follow up with: JATIN PATRICK DPM [ACTIVE STAFF] - 04/24/24 10:00 am MARGARITA CALZADA [ACTIVE STAFF] - 05/01/24 10:30 am (at [facility]) CADEN SORENSEN [COURTESY STAFF] - 04/23/24 1:00 pm ANCA MONROE MD [CONSULTING PHYSICIAN] - 04/21/24 9:15 am EDILBERTO PULLIAM MD [Primary Care Provider] - 04/28/24 2:15 pm ARLETTE PALACIOS NP [NON-STAFF PHY W/O PRIVILEGES] - 05/01/24 1:00 pm
[2024-04-18] MEDS: Vibramycin 100 MG PO SCH (13:27)
[2024-04-19] MEDS ORDERED: Pletal 100 MG PO SCH (10:00)
--- NOTE | 2024-04-20 13:16 | PCM.NOTE ---
Date and Time: 04/18/24 1214 Subjective Assessment: doing well at bedside Physical Exam - Narrative Narrative Physical Exam: Podiatry Physical Exam Objective Data Vital Signs: Pain Assessment - Last Documented Pain Intensity 7 Pain Scale Used 0-10 Pain Scale Intake and Output: Intake & Output 04/18/24 04/19/24 04/20/24 04/21/24 11:59 11:59 11:59 11:59 Intake Total 1440 45 Output Total 2700 650 Balance -1260 -605 Weight 78.5 kg Assessment/Plan (1) Cellulitis of left lower extremity Status: Acute Assessment & Plan: patient examination and evaluation Radiographs reviewed and discussed with patient- MRI negative IV abx per Medicine team Pain control - as prescribed wound debridement not preformed today. Unna boot applied for venous insufficiency. will follow with daily wet to dry santyl dressings. Will follow outpatient at home. Patient already has [facility]. Code(s): L03.116 - CELLULITIS OF LEFT LOWER LIMB (2) Cellulitis of right index finger Status: Acute Code(s): L03.011 - CELLULITIS OF RIGHT FINGER (3) Obesity (BMI 30.0-34.9) Status: Chronic Code(s): E66.811 - OBESITY, CLASS 1 (4) Open wound of left heel Status: Chronic Code(s): S91.302A - UNSPECIFIED OPEN WOUND, LEFT FOOT, INITIAL ENCOUNTER (5) Rheumatoid arthritis Status: Chronic Code(s): M06.9 - RHEUMATOID ARTHRITIS, UNSPECIFIED (6) Wound of left ankle Status: Chronic Code(s): S91.002A - UNSPECIFIED OPEN WOUND, LEFT ANKLE, INITIAL ENCOUNTER (7) Pressure ulcer of foot Status: Acute Code(s): L89.899 - PRESSURE ULCER OF OTHER SITE, UNSPECIFIED STAGE (8) Wound exudate without odor Status: Acute Code(s): [id number] -
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
== END 2024-04-18 13:40 | DRG 571 ==
LOC: ED 08:02 → MED SURG 14:32 → OBSVTOIN 04-14 12:20
PROVIDERS: ADMIT Internal Medicine; ATTEND Internal Medicine
PROC: 2W1MX6Z Compression of Left Lower Extremity using Pressure Dressing (ICD-10-PCS; principal; 2024-04-14)
PROC: 0JBP0ZZ Excision of Left Lower Leg Subcutaneous Tissue and Fascia, Open Approach (ICD-10-PCS; 2024-04-14)
PROC: 0X6N0Z3 Detachment at Right Index Finger, Low, Open Approach (ICD-10-PCS; 2024-04-18)
DX: L03.116 Cellulitis of left lower limb (principal); I50.30 Unspecified diastolic (congestive) heart failure; M86.9 Osteomyelitis, unspecified; L03.011 Cellulitis of right finger; K80.20 Calculus of gallbladder without cholecystitis without obstruction; I27.20 Pulmonary hypertension, unspecified; M06.9 Rheumatoid arthritis, unspecified; S91.302A Unspecified open wound, left foot, initial encounter; E66.811 Obesity, class 1; R91.8 Other nonspecific abnormal finding of lung field; I11.0 Hypertensive heart disease with heart failure; G57.93 Unspecified mononeuropathy of bilateral lower limbs; I48.91 Unspecified atrial fibrillation; L89.312 Pressure ulcer of right buttock, stage 2; Z79.01 Long term (current) use of anticoagulants; Z79.899 Other long term (current) drug therapy; Z86.73 Personal history of transient ischemic attack (TIA), and cerebral infarction without residual deficits
CPT/HCPCS: 0241U; 11042; 26236; 29580; 29581; 36415; 36573; 71260; 73130; 73221; 73600; 73620; 73718; 76705; 76937; 77001; 80053; 80170; 81001; 82805; 83605; 83735; 83880; 84484; 85025; 85027; 85610; 85652; 85730; 86140; 87040; 87070; 87075; 87077; 87086; 87116; 87186; 87206; 93005; 93268; 93306; 93971; 94760; 96374; 96375; 99221; 99222; 99232; 99285; C1769; J1580; J1642; J1650; J2250; J2371; J2704; J3010; P9612; Q3014; A9270-GY; G0378

== ENCOUNTER 2024-08-16 23:24 | Emergency (ER) | payer MEDICARE ==
--- NOTE | 2024-08-17 00:15 | ERPHSYRPT ---
- History of Present Illness Time Seen by Provider: 08/17/24 00:15 Source: patient, family Exam Limitations: no limitations Physician History: This is a 73-year-old white female patient brought to the emergency department by private vehicle with the complaint of bleeding from the gums of the right lower posterior molar region. Patient was eating grilled cheese sandwich and crackers. This seemed to prompt cut in the gingiva in the same area. They could not get the bleeding controlled. Patient is on both aspirin and Plavix. She was told to stop this medication. Patient has a history of CVA, hypertension, CHF, atrial fibrillation, peripheral neuropathy and rheumatoid arthritis. Timing/Duration: abrupt onset Severity: mild ENT Location: dental (Right lower posterior gingiva near a posterior molar) Modifying Factors: Improves With: nothing Allergies/Adverse Reactions: influenza virus vaccine qs [id number] (36 mos, up) [From Fluarix Quad] Allergy (Verified 08/17/24 00:28) Penicillins Allergy (Verified 08/17/24 00:28) morphine Adverse Reaction (Verified 08/17/24 00:28) states makes her wild Home Medications: Amlodipine Besylate 5 mg [Norvasc 5 mg] 5 mg PO LUNCH 12/27/23 [History] Aspirin [Aspirin EC] 81 mg PO LUNCH 12/27/23 [History] Atorvastatin Calcium 40 mg PO HS 12/27/23 [History] Gabapentin 300 mg PO HS 12/27/23 [History] Lisinopril 20 mg [Zestril 20 MG] 20 mg PO HS 12/27/23 [History] Metoprolol Succinate 25 mg PO QAM 12/27/23 [History] Cilostazol 100 mg [Pletal 100 MG] 100 mg PO BID 03/20/24 [History] Cholecalciferol (Vitamin D3) [Vitamin D3] 25 mcg PO QAM 04/13/24 [History] Gabapentin [Neurontin ] 100 mg PO BID 04/13/24 [History] Acetaminophen 325 mg [Tylenol 325 mg] 650 mg PO Q6H PRN 07/10/24 [History] Hx Tetanus, Diphtheria Vaccination/Date Given: No (4 years ago) Hx Influenza Vaccination/Date Given: No Hx Pneumococcal Vaccination/Date Given: No Travel Risk - International Travel Have you traveled outside of the country in past 3 weeks: No - Emerging Infectious Disease Are you exhibiting symptoms associated with any current EIDs: No - Review of Systems Constitutional: No Symptoms Eyes: No Symptoms Ears, Nose, & Throat: Mouth Pain Respiratory: No Symptoms Cardiac: No Symptoms Abdominal/Gastrointestinal: No Symptoms Genitourinary Symptoms: No Symptoms Musculoskeletal: No Symptoms Skin: No Symptoms Neurological: No Symptoms Psychological: No Symptoms Endocrine: No Symptoms Hematologic/Lymphatic: No Symptoms Immunological/Allergic: No Symptoms All Other Systems: Reviewed and Negative - Past Medical History Pertinent Past Medical History: Yes Neurological History: Peripheral Neuropathy, Stroke ENT History: No Pertinent History Cardiac History: Arrhythmia, Congestive Heart Failure, High Cholesterol, Hypertension Respiratory History: No Pertinent History, Other Endocrine Medical History: No Pertinent History Musculoskeletal History: Rheumatoid Arthritis GI Medical History: No Pertinent History History: No Pertinent History Psycho-Social History: No Pertinent History Female Reproductive Disorders: Other Other Medical History: urinary incontinence due to not being able to get there quick enough due to stroke, a-fib. Pulmonary HTN; PVD-insufficiency, varicose veings. Anemia, vitamin D deficiency. Heartburn - Past Surgical History Past Surgical History: Yes Neuro Surgical History: No Pertinent History Cardiac: No Pertinent History Respiratory: No Pertinent History Gastrointestinal: Appendectomy Genitourinary: No Pertinent History Musculoskeletal: Amputation, Other Female Surgical History: Hysterectomy, Section Other Surgical History: Amputation of right first finger Significant Family History: diabetes, hypertension - Social History Smoking Status: Never smoker Exposure to second hand smoke: No Drug Use: none - Social Determinants of Health Will the patient participate in the screening: Declined to provide Do you worry about a steady place to live?: No In the past 12 months,have you had to go without utilities?: No Transportation Issues: No Has anyone in your support network made you feel unsafe?: No Have you or anyone in your house had to go w/o enough food: No - Nursing Vital Signs Nursing Vital Signs: Initial Vital Signs Temperature 96.7 F 08/17/24 00:29 Pulse Rate 115 H 08/17/24 00:29 Respiratory Rate 16 08/17/24 00:29 Blood Pressure 127/75 08/17/24 00:29 O2 Sat by Pulse Oximetry 98 08/17/24 00:29 Pain Scale Pain Intensity 6 - Physical Exam General Appearance: no apparent distress, alert, anxiety Eye Exam: bilateral eye: normal inspection, PERRL, EOMI Ear Exam: bilateral ear: auricle normal Nasal Exam: normal inspection Throat Exam: pharynx normal, dental tenderness (Right posterior lower), moist mucus membranes Neck Exam: normal inspection, non-tender, supple, full range of motion Cardiovascular/Respiratory Exam: chest non-tender, normal breath sounds, regular rate/rhythm, heart sounds normal Abdominal Exam: non-tender Neurologic Exam: alert, oriented x 3, nml cerebellar function Skin Exam: normal color, warm, dry SpO2 Interpretation: normal O2 Delivery: Room Air - Course Nursing assessment & vital signs reviewed: Yes EKG Interpreted by Me: RATE, Sinus Rhythm - Progress Progress: improved Progress Note: 08/17/24 01:29 My medical decision making and the assignment of low complexity of this patient's medical issue today is based on review of the patient's past medical history, review the patient's medication list, reviewed patient drug allergy list, history present illness and physical findings on examination. The workup in this patient does not require any radiographic or laboratory studies. Differential diagnosis includes but is not limited to dental bleed, fractured tooth, gingival bleed 08/17/24 01:59 Procedure note: The oral cavity was explored and there was bleeding from the gingival margin in the area of what appears to be a fractured tooth right side lower jaw posterior molar. We removed the gauze and clot that was placed in the patient's assisted living facility. We then cleaned out the clots. Next we placed a piece of Surgicel to this area followed by gauze compression. We waited approximately 1 hour. Reassessment of the site shows no further bleeding. Patient's son confirmed that there was no further bleeding from the site. Therefore we placed a new Surgicel gauze and this area and then placed a compression gauze. The patient tolerated procedure well. Counseled pt/family regarding: diagnosis, need for follow-up Medical Desision Making - Independent Historian Additional History obtained from: Family - Diagnostic Testing Diagnostic test were ordered, analyzed, and reviewed by me: No - Risk of complications Low Risk: Low risk of morbidity from additional dx testing or treatment - Departure Departure Disposition: Home Clinical Impression: Gingival bleeding, Fractured tooth Condition: Stable Critical Care Time: No Referrals: DOCTOR,NO FAMILY [Primary Care Provider, UNKNOWN] - Follow up/PCP as directed Additional Instructions: Keep the current pressure dressing/gauze in place until 6 AM. At that time you may remove the gauze and the Surgicel (it will be black and this is normal). After this is removed, you may consume clear cool liquids, then full liquids followed by soft foods. Avoid irritating this right lower area fractured tooth with oral intake. Stop your Plavix and aspirin. You may resume these medications on the morning of 08/19/2024. Call your dentist to make an appointment. Call them on Sunday08/18/2024. As discussed, return to the emergency department if the bleeding recurs.
[2024-08-17 00:38] VITALS: TEMP 96.7
[2024-08-17 02:05] VITALS: BP 107/68; PULSE 103; RESP 18; O2SAT 97
== END 2024-08-17 02:15 | disposition home or self-care (01) ==
LOC: ED 23:24
DX: K06.8 Other specified disorders of gingiva and edentulous alveolar ridge (principal); S02.5XXA Fracture of tooth (traumatic), initial encounter for closed fracture; I11.0 Hypertensive heart disease with heart failure; I50.9 Heart failure, unspecified; Z79.02 Long term (current) use of antithrombotics/antiplatelets; Z79.899 Other long term (current) drug therapy
CPT/HCPCS: 99282